=== PATIENT | female | born 1975 ===

== ENCOUNTER 2020-07-20 09:38 | Outpatient (REF) | payer OTHER, SELFPAY ==
[2020-07-20 10:08] LABS: MANUAL DIFF FLAG NO
[2020-07-20 10:15] LABS: Basophils Percent Auto 0.5 % (0-2); Eosinophils Absolute Auto 0.2 X10*3/uL (0.0-0.4); Eosinophils Percent Auto 4.4 % (0-4); Hematocrit 41.5 % (37-47); Hemoglobin 13.5 g/dl (12.0-16.0); Imm Gran Abs Auto 0.01 X10*3/uL (0.00-0.03); Imm Gran Pct Auto 0.2 % (0.0-0.4); Lymphocytes Absolute Auto 1.6 X10*3/uL (1.2-4.9); Lymphocytes Percent Auto 37.1 % (20-40); Mean Corpuscular HGB Conc 32.5 g/dl (31.0-35.0); Mean Corpuscular Hemoglobin 28.8 pg (27.0-33.0); Mean Corpuscular Volume 88.7 fL (80-98); Mean Platelet Volume 9.6 fL (9.4-12.3); Monocytes Absolute Auto 0.5 X10*3/uL (0.1-1.2); Monocytes Percent Auto 12.1 % (2-11); Neutrophils Percent Auto 45.7 % (45-73); Platelet Count 252 X10*3/uL (160-400); Red Blood Count 4.68 X10*6/uL (4.20-5.50); Red Cell Distribution Width 12.2 % (11.0-16.0); White Blood Count 4.3 X10*3/uL (4.8-10.8)
[2020-07-20 11:33] LABS: Alanine Aminotransferase 25 U/L (0-31); Albumin Level 4.3 g/dL (3.5-5.0); Alkaline Phosphatase 46 U/L (39-117); Aspartate Amino Transferase 21 U/L (5-31); Bilirubin Total 0.7 mg/dL (0.0-1.0); Blood Urea Nitrogen 9 mg/dL (9-16); C Reactive Protein 0.02 mg/dL (< or = 0.50); Calcium 9.2 mg/dL (8.4-10.2); Estimated Glomerular Filt Rate > 60; Glucose Random 92 mg/dL (60-115); Total Protein 7.3 g/dL (6.5-8.0)
[2020-07-20 11:43] LABS: Anion Gap 10 (12-20); Carbon Dioxide 28 mmol/L (22-29); Chloride 102 mmol/L (96-108); Potassium 4.2 mmol/l (3.3-5.1); Sodium 136 mmol/L (135-145)
== END 2020-07-20 09:39 | disposition home or self-care (01) ==
LOC: HO.LAB 09:38
PROVIDERS: PCP Internal Medicine; Visit Provider Student in an Organized Health Care Education/Training Program
DX: M05.79 Rheumatoid arthritis with rheumatoid factor of multiple sites without organ or systems involvement (principal)
CPT/HCPCS: 36415; 80053; 85025; 86140

== ENCOUNTER → 2020-07-25 12:22 | Outpatient (BNVA) | payer OTHER, SELFPAY | PROVIDERS: PCP Internal Medicine; Visit Provider Student in an Organized Health Care Education/Training Program | DX: M05.9 Rheumatoid arthritis with rheumatoid factor, unspecified (principal); F41.9 Anxiety disorder, unspecified; Z79.899 Other long term (current) drug therapy | CPT/HCPCS: 99214 ==

== ENCOUNTER 2020-10-05 10:10 | Outpatient (REF) | payer OTHER, SELFPAY | END 2020-10-05 10:11 | disposition home or self-care (01) | LOC: HO.LAB 10:10 | PROVIDERS: Visit Provider Internal Medicine | DX: Z20.828 Contact with and (suspected) exposure to other viral communicable diseases (principal) | CPT/HCPCS: C9803; U0003 ==

== ENCOUNTER 2020-11-28 12:59 | Outpatient (REF) | payer OTHER, SELFPAY ==
[2020-11-28 14:13] LABS: MANUAL DIFF FLAG NO
[2020-11-28 14:31] LABS: Basophils Percent Auto 0.3 % (0-2); Eosinophils Absolute Auto 0.2 X10*3/uL (0.0-0.4); Eosinophils Percent Auto 2.3 % (0-4); Hematocrit 39.9 % (37-47); Hemoglobin 13.3 g/dl (12.0-16.0); Imm Gran Abs Auto 0.03 X10*3/uL (0.00-0.03); Imm Gran Pct Auto 0.4 % (0.0-0.4); Lymphocytes Absolute Auto 2.2 X10*3/uL (1.2-4.9); Lymphocytes Percent Auto 31.4 % (20-40); Mean Corpuscular HGB Conc 33.3 g/dl (31.0-35.0); Mean Corpuscular Volume 87.1 fL (80-98); Mean Platelet Volume 10.2 fL (9.4-12.3); Monocytes Absolute Auto 0.7 X10*3/uL (0.1-1.2); Neutrophils Absolute Auto 3.8 X10*3/uL (2.0-8.3); Neutrophils Percent Auto 55.6 % (45-73); Platelet Count 226 X10*3/uL (160-400); Red Blood Count 4.58 X10*6/uL (4.20-5.50); Red Cell Distribution Width 12.2 % (11.0-16.0); White Blood Count 6.9 X10*3/uL (4.8-10.8)
[2020-11-28 14:42] LABS: Alanine Aminotransferase 15 U/L (0-31); Albumin Level 4.2 g/dL (3.5-5.0); Alkaline Phosphatase 51 U/L (39-117); Anion Gap 12 (12-20); Aspartate Amino Transferase 16 U/L (5-31); Bilirubin Total 0.7 mg/dL (0.0-1.0); Blood Urea Nitrogen 11 mg/dL (9-16); C Reactive Protein < 0.02 mg/dL (< or = 0.50); Calcium 9.3 mg/dL (8.4-10.2); Carbon Dioxide 25 mmol/L (22-29); Chloride 104 mmol/L (96-108); Estimated Glomerular Filt Rate > 60; Glucose Random 109 mg/dL (60-115); Potassium 4.3 mmol/L (3.3-5.1); Sodium 137 mmol/L (135-145); Total Protein 7.3 g/dL (6.5-8.0)
[2020-11-28 15:33] LABS: Erythrocyte Sedimentation Rate 5 MM/HR (0-20)
== END 2020-11-28 13:00 | disposition home or self-care (01) ==
LOC: HO.LAB 12:59
PROVIDERS: PCP Internal Medicine; Referring Provider Internal Medicine; Visit Provider Student in an Organized Health Care Education/Training Program
DX: M05.9 Rheumatoid arthritis with rheumatoid factor, unspecified (principal); F41.9 Anxiety disorder, unspecified; Z88.0 Allergy status to penicillin; Z88.8 Allergy status to other drugs, medicaments and biological substances; Z79.899 Other long term (current) drug therapy
CPT/HCPCS: 36415; 80053; 85025; 85652; 86140; 99212

== ENCOUNTER 2020-12-04 10:56 | Outpatient (REF) | payer OTHER, SELFPAY ==
[2020-12-05 17:36] LABS: C. trachomatis RNA TMA NOT DETECTED (NOT DETECTED); N. gonorrhoeae RNA TMA NOT DETECTED (NOT DETECTED)
[2020-12-07 05:02] LABS: HPV mRNA E6/E7 rflx Not Detected (Not Detected)
== END 2020-12-04 10:57 | disposition home or self-care (01) ==
LOC: HO.LAB 10:56
PROVIDERS: Visit Provider Advanced Practice Midwife
DX: Z01.411 Encounter for gynecological examination (general) (routine) with abnormal findings (principal); Z11.51 Encounter for screening for human papillomavirus (HPV); R10.2 Pelvic and perineal pain; R32 Unspecified urinary incontinence; N87.0 Mild cervical dysplasia; Z20.2 Contact with and (suspected) exposure to infections with a predominantly sexual mode of transmission
CPT/HCPCS: 36415; 87491; 87591; 87624; 88142

== ENCOUNTER 2020-12-04 11:49 | Outpatient (REF) | payer OTHER, SELFPAY ==
[2020-12-05 08:29] LABS: HBc Num1 0.08 S/CO (0.00-0.79); HIV AB/AG Nonreactive (Nonreactive); HIV Num 1 0.05 S/CO (0.00-0.99); Hepatitis B Core Antibody Nonreactive (Nonreactive); ~HepC Num1 0.11 S/CO (0.00-0.79); ~Hepatitis C Antibody Nonreactive (Nonreactive)
[2020-12-05 08:55] LABS: Syphilis Screen Nonreactive (Nonreactive)
== END 2020-12-04 11:50 | disposition home or self-care (01) ==
LOC: HO.LAB 11:49
PROVIDERS: PCP Internal Medicine; Visit Provider Advanced Practice Midwife
DX: Z20.2 Contact with and (suspected) exposure to infections with a predominantly sexual mode of transmission (principal)
CPT/HCPCS: 36415; 86704; 86780; 86803; 87389

== ENCOUNTER 2020-12-13 13:19 | Outpatient (REF) | payer OTHER, SELFPAY ==
--- NOTE | ~2020-12-13 | US_ITS ---
EXAMINATION: US PELVIS, COMPLETE CLINICAL INFORMATION: Pelvic and perineal pain. COMPARISON: 03/05/2020 TECHNIQUE: Transabdominal and transvaginal imaging was performed. FINDINGS: LMP: 12/06/2020 Uterus is anteverted , measuring 11.9 x 4.9 x 7.1 cm. There is a 2.3 x 1.9 x 2.1 cm hypoechoic lesion in the body of the uterus, suggestive of fibroid. Slight interval increase in size. Small cystic focus in the uterine fundus measuring 0.4 x 0.3 x 0.3 cm. Small 0.2 cm calcification in the myometrium. Nabothian cyst present. Endometrial thickness 1.1 cm. Right ovary measures 2.4 x 1.4 x 0.8 cm. Volume 1.4 mL. Left ovary measures 3.4 x 2.4 x 1.7 cm. Volume 7.3 mL. There is a 1.4 x 1.4 x 1.5 cm cyst, an additional 1.3 x 0.8 x 1 cm cyst. No free fluid in the cul-de-sac. US/US transvaginal IMPRESSION: 1. Hypoechoic lesion in the uterine body, probable fibroid, slightly increased in size as compared to previous having a maximal measurement of 2.3 cm. 2. Small cystic and small focus of calcification in the uterine myometrium, otherwise as detailed above. 3. Right ovarian cyst having a maximal measurement of 1.5 cm and 1.3 cm respectively.
--- NOTE | ~2020-12-13 | US_ITS ---
EXAMINATION: US PELVIS, COMPLETE CLINICAL INFORMATION: Pelvic and perineal pain. COMPARISON: 03/05/2020 TECHNIQUE: Transabdominal and transvaginal imaging was performed. FINDINGS: LMP: 12/06/2020 Uterus is anteverted , measuring 11.9 x 4.9 x 7.1 cm. There is a 2.3 x 1.9 x 2.1 cm hypoechoic lesion in the body of the uterus, suggestive of fibroid. Slight interval increase in size. Small cystic focus in the uterine fundus measuring 0.4 x 0.3 x 0.3 cm. Small 0.2 cm calcification in the myometrium. Nabothian cyst present. Endometrial thickness 1.1 cm. Right ovary measures 2.4 x 1.4 x 0.8 cm. Volume 1.4 mL. Left ovary measures 3.4 x 2.4 x 1.7 cm. Volume 7.3 mL. There is a 1.4 x 1.4 x 1.5 cm cyst, an additional 1.3 x 0.8 x 1 cm cyst. No free fluid in the cul-de-sac. US/US pelvic complete IMPRESSION: 1. Hypoechoic lesion in the uterine body, probable fibroid, slightly increased in size as compared to previous having a maximal measurement of 2.3 cm. 2. Small cystic and small focus of calcification in the uterine myometrium, otherwise as detailed above. 3. Right ovarian cyst having a maximal measurement of 1.5 cm and 1.3 cm respectively.
== END 2020-12-13 13:20 | disposition home or self-care (01) ==
LOC: HO.US 13:19
PROVIDERS: PCP Internal Medicine; Visit Provider Advanced Practice Midwife
DX: R10.2 Pelvic and perineal pain (principal)
CPT/HCPCS: 76830; 76856

== ENCOUNTER → 2020-12-27 11:21 | Outpatient (BNVA) | payer OTHER, SELFPAY | PROVIDERS: PCP Internal Medicine; Visit Provider Advanced Practice Midwife ==

== ENCOUNTER → 2020-12-28 13:28 | Outpatient (BNVA) | payer OTHER, SELFPAY | PROVIDERS: PCP Internal Medicine; Visit Provider Advanced Practice Midwife ==

== ENCOUNTER 2021-01-01 08:37 | Outpatient (REF) | payer OTHER, SELFPAY | END 2021-01-01 08:38 | disposition home or self-care (01) | LOC: HO.LAB 08:37 | PROVIDERS: PCP Internal Medicine; Visit Provider Obstetrics & Gynecology | DX: N87.0 Mild cervical dysplasia (principal) | CPT/HCPCS: 57454; 88305 ==

== ENCOUNTER → 2021-01-18 10:58 | Outpatient (BNVA) | payer OTHER, SELFPAY | PROVIDERS: PCP Internal Medicine; Visit Provider Urology | DX: N39.3 Stress incontinence (female) (male) (principal) | CPT/HCPCS: 51798; 81002; 99202 ==

== ENCOUNTER 2021-01-30 08:57 | Outpatient (REF) | payer OTHER, SELFPAY ==
[2021-01-30 09:36] LABS: COVID-19 Test Negative (Negative); IDNOW Serial# 55D5AD1C
== END 2021-01-30 08:58 | disposition home or self-care (01) ==
LOC: HO.LAB 08:57
PROVIDERS: Visit Provider Internal Medicine
DX: Z20.822 Contact with and (suspected) exposure to COVID-19 (principal)
CPT/HCPCS: 36415; 87635; C9803

== ENCOUNTER 2021-02-06 10:09 | Outpatient (REF) | payer OTHER, SELFPAY ==
[2021-02-06 10:48] LABS: MANUAL DIFF FLAG NO
[2021-02-06 10:52] LABS: Basophils Percent Auto 0.4 % (0-2); Eosinophils Absolute Auto 0.2 X10*3/uL (0.0-0.4); Eosinophils Percent Auto 2.7 % (0-4); Hemoglobin 12.6 g/dl (12.0-16.0); Imm Gran Abs Auto 0.01 X10*3/uL (0.00-0.03); Imm Gran Pct Auto 0.2 % (0.0-0.4); Lymphocytes Absolute Auto 1.7 X10*3/uL (1.2-4.9); Lymphocytes Percent Auto 30.5 % (20-40); Mean Corpuscular HGB Conc 32.3 g/dl (31.0-35.0); Mean Corpuscular Hemoglobin 28.5 pg (27.0-33.0); Mean Corpuscular Volume 88.2 fL (80-98); Mean Platelet Volume 9.6 fL (9.4-12.3); Monocytes Absolute Auto 0.6 X10*3/uL (0.1-1.2); Neutrophils Absolute Auto 3.1 X10*3/uL (2.0-8.3); Neutrophils Percent Auto 56.2 % (45-73); Platelet Count 241 X10*3/uL (160-400); Red Blood Count 4.42 X10*6/uL (4.20-5.50); Red Cell Distribution Width 12.2 % (11.0-16.0); White Blood Count 5.5 X10*3/uL (4.8-10.8)
[2021-02-06 11:22] LABS: Alanine Aminotransferase 16 U/L (0-31); Alkaline Phosphatase 47 U/L (39-117); Anion Gap 11 (12-20); Aspartate Amino Transferase 15 U/L (5-31); Bilirubin Total 0.8 mg/dL (0.0-1.0); Blood Urea Nitrogen 8 mg/dL (9-16); C Reactive Protein 0.06 mg/dL (< or = 0.50); Calcium 8.6 mg/dL (8.4-10.2); Carbon Dioxide 26 mmol/L (22-29); Chloride 106 mmol/L (96-108); Estimated Glomerular Filt Rate > 60; Glucose Random 96 mg/dL (60-115); Sodium 139 mmol/L (135-145); Total Protein 6.7 g/dL (6.5-8.0)
== END 2021-02-06 10:10 | disposition home or self-care (01) ==
LOC: HO.LAB 10:09
PROVIDERS: PCP Internal Medicine; Visit Provider Student in an Organized Health Care Education/Training Program
DX: M05.9 Rheumatoid arthritis with rheumatoid factor, unspecified (principal)
CPT/HCPCS: 36415; 80053; 85025; 86140

== ENCOUNTER 2021-02-11 09:56 | Outpatient (REF) | payer OTHER, SELFPAY ==
--- NOTE | ~2021-02-11 | MM_ITS ---
EXAMINATION: MM SCREENING DIGITAL BREAST TOMOSYNTHESIS, BILATERAL CLINICAL INFORMATION: Screening. Asymptomatic. The lifetime risk of breast cancer based on the Tyrer-Cuzick Model is 11%. COMPARISON: Mammography: 07/12/2018, 09/18/2015 TECHNIQUE: Digital breast tomosynthesis is performed in both the craniocaudal and mediolateral oblique views along with computer-aided detection (CAD). Synthesized 2D images are generated from the tomosynthesis. FINDINGS: There are scattered areas of fibroglandular density (ACR BI-RADS breast composition Category b). Breast tissue composition borders on heterogeneously dense in the upper outer quadrants. Parenchymal pattern is similar to prior studies. There is no interval mass or architectural abnormality. There are bilateral punctate and predominantly vascular calcifications again seen. The axilla and skin contours are unremarkable. No significant changes. MM/MM tomosynthesis screening BI IMPRESSION: No mammographic evidence of malignancy. ASSESSMENT: BI-RADS 2: Benign RECOMMENDATION: Routine annual mammography screening. This patient's information was entered into a reminder system with a target due date for their next mammogram.
== END 2021-02-11 09:57 | disposition home or self-care (01) ==
LOC: HO.MAMMO 09:56
PROVIDERS: PCP Internal Medicine; Visit Provider Advanced Practice Midwife
DX: Z12.31 Encounter for screening mammogram for malignant neoplasm of breast (principal)
CPT/HCPCS: 77063; 77067

== ENCOUNTER → 2021-02-20 13:26 | Outpatient (BNVA) | payer OTHER, SELFPAY | PROVIDERS: PCP Internal Medicine; Visit Provider Student in an Organized Health Care Education/Training Program | DX: M05.9 Rheumatoid arthritis with rheumatoid factor, unspecified (principal); M70.62 Trochanteric bursitis, left hip | CPT/HCPCS: 20610; 99212 ==

== ENCOUNTER 2021-05-03 17:01 | Emergency (ER) | payer OTHER, SELFPAY ==
[2021-05-03 17:50] VITALS: BP 119/80; PULSE 66; RESP 20; TEMP 37.1; O2SAT 99; BMI 25.3
[2021-05-03 19:32] LABS: MANUAL DIFF FLAG NO
[2021-05-03 19:33] LABS: Basophils Percent Auto 0.2 % (0-2); Eosinophils Absolute Auto 0.2 X10*3/uL (0.0-0.4); Eosinophils Percent Auto 3.6 % (0-4); Hematocrit 39.4 % (37-47); Hemoglobin 12.9 g/dl (12.0-16.0); Imm Gran Abs Auto 0.01 X10*3/uL (0.00-0.03); Imm Gran Pct Auto 0.2 % (0.0-0.4); Lymphocytes Absolute Auto 1.9 X10*3/uL (1.2-4.9); Mean Corpuscular HGB Conc 32.7 g/dl (31.0-35.0); Mean Corpuscular Hemoglobin 28.5 pg (27.0-33.0); Mean Corpuscular Volume 87.2 fL (80-98); Mean Platelet Volume 9.9 fL (9.4-12.3); Monocytes Absolute Auto 0.7 X10*3/uL (0.1-1.2); Neutrophils Absolute Auto 2.3 X10*3/uL (2.0-8.3); Platelet Count 249 X10*3/uL (160-400); Red Blood Count 4.52 X10*6/uL (4.20-5.50)
[2021-05-03] MEDS: 0.9 % Sodium Chloride 1,000 ML 999 ML IVCONT (19:49)
[2021-05-03] MEDS: Metoclopramide HCl 10 MG/2 ML VIAL IVPUSH (19:50)
[2021-05-03] MEDS: diphenhydrAMINE HCL 50 MG/ML VIAL IVPUSH (19:50)
[2021-05-03] MEDS: dexAMETHasone sod phosphate 10 MG/ML VIAL IVPUSH (19:50)
[2021-05-03 19:55] LABS: Anion Gap 10 (12-20); Blood Urea Nitrogen 8 mg/dL (9-16); Calcium 8.8 mg/dL (8.4-10.2); Carbon Dioxide 27 mmol/L (22-29); Chloride 106 mmol/L (96-108); Creatinine Clr Calc Pharmacy 90.4; Estimated Glomerular Filt Rate > 60; Glucose Random 95 mg/dL (60-115); Magnesium 2.2 mg/dL (1.6-2.6); Potassium 3.4 mmol/L (3.3-5.1); Sodium 140 mmol/L (135-145)
--- NOTE | 2021-05-03 20:01 | ED_ITS ---
HPI - Headache General Chief Complaint: Headache Stated Complaint: headache Time Seen by Provider: 05/03/21 18:54 Source: patient Mode of arrival: ambulatory Limitations: no limitations History of Present Illness HPI Narrative: 46-year-old female with a past medical history of migraine headaches, rheumatoid arthritis, stress incontinence, urinary incontinence and anxiety presenting to the ED with complaints of her migraine headache for the past 4 days despite taking Motrin Tylenol. She reports that this is similar to her prior migraine headaches she has associated nausea and photophobia. She reports she normally takes Imitrex which provide symptomatic relief although she ran out of her prescription. She denies any recent trauma or tick bites or any CO2 exposure or toxicity or any other symptoms complaints or concerns at this time. MD elicited complaint: headache and migraine Onset (ago): day(s) (Four days) Onset description: gradually Location: frontal, occipital, diffuse and retro-orbital Severity: severe Pain scale (0-10): 10 Quality & Timing: aching, throbbing, pulsatile, constant, progressively worsening and similar to previous headaches Exacerbating factors: light Relieving factors: prescription medication and dark room Associated symptoms: nausea and photophobia Treatments prior to arrival: acetaminophen and ibuprofen Related Data Home Medications Medication Instructions Recorded Confirmed lidocaine HCl 4 % topical cream 1 applic TOPICAL TID 07/25/20 naproxen 500 mg tablet,delayed 500 mg PO BID PRN 07/25/20 release tizanidine 2 mg tablet 2 mg PO TID PRN 07/25/20 Previous Rx's Medication Instructions Recorded diclofenac sodium 1 % topical gel 2 g TOPICAL QID #100 g 11/28/20 buspirone 7.5 mg tablet 7.5 mg PO BID #60 tab 01/07/21 sertraline 25 mg tablet 25 mg PO DAILY 90 Days #90 tab 02/04/21 sarilumab 200 mg/1.14 mL 200 mg SUBCUT Q2W #2.28 ml 02/20/21 subcutaneous pen injector tramadol 50 mg tablet 50 mg PO Q6H PRN #30 tab 02/28/21 loratadine 10 mg tablet 10 mg PO DAILY PRN 90 Days #90 tab 03/05/21 albuterol sulfate 90 mcg/actuation 2 puff INHALATION Q4-6H #6.7 g 03/21/21 aerosol inhaler ondansetron HCl [Zofran] 4 mg PO Q8H PRN #14 tab 05/03/21 sumatriptan succinate [Imitrex] See Rx Instructions .ROUTE 05/03/21 .COMPLEX #30 tab Allergies Allergy/AdvReac Type Severity Reaction Status Date / Time Penicillins [PENICILLINS] Allergy Intermediate RASH Verified 05/03/21 17:50 adalimumab [Humira] Allergy Unknown rash Verified 05/03/21 17:50 methotrexate Allergy Unknown HIVES Verified 02/20/21 13:30 Review of Systems Review of Systems: Constitutional : No changes in activity, No lethargy, No recent prior head injury, No agitation, No increased fussiness ENT/Mouth : No Ear Pain, No Nasal discharge/drainage Eyes: No Eye Pain, No Swelling, No Redness, No Foreign Body, No Vision Changes Cardiovascular : No Chest Pain, No SOB Respiratory : No Cough Gastrointestinal : No Nausea, No Vomiting, No abdominal Pain Genitourinary : No Dysuria, No Urinary Frequency, No Urinary Incontinence, No Urgency, No Flank Pain Musculoskeletal : No joint pain, No neck stiffness, No back pain/injury Skin : No lacerations Neuro : No unsteady gait, No Paresthesias, No Loss of Consciousness, No altered mental status, No dizziness, + Headache Denies past medical history of HIV, recent trauma, coagulopathy, recent spinal/ epidural procedure, new medication, URI symptoms, close contacts with similar symptoms, tick bite, or known CO2 exposure. Yes all other systems are reviewed and are negative [facility] Past Medical History Attestation statement: The following information was validated with the patient. Medical History Rheumatoid arthritis Surgical History H/O lithotripsy H/O tubal ligation History of back surgery Family History Family History Paternal Aunt Breast cancer Father Asthma Diabetes Mother Lupus Sister Lupus Epilepsy Social History Social History Household Members: None Housing: Apartment Are you a primary manager respiratory care to a significant other at home: No Do you presently have visiting nurse or other home services: No Alcohol intake: never Advance Directives: No Advance Directives Information Provided: No Patient : No Physical Exam Vital Signs: Vital Signs: Last Vital Signs Temp 98.7 F 05/03/21 17:50 Pulse 66 05/03/21 17:50 Resp 20 05/03/21 17:50 BP 119/80 05/03/21 17:50 Pulse Ox 99 05/03/21 17:50 Body Mass Index 25.3 Vital signs have been reviewed as normal and appeared to be correct. Blood pressure normal. Heart rate normal. Respiration rate normal. Temperature normal. Oxygen saturation normal. Appearance: Alert. Oriented X3. No acute distress. Head: Normal external exam. Normocephalic. Atraumatic. Able to rotate head bilaterally. Eyes: PERRLA. EOMI. No nystagmus noted. Conjunctiva and sclera normal. Eyelids normal. Corneal reflex normal. ENT: EAC normal. TM's Normal. Hearing normal. Pharynx normal. Uvula midline. tongue midline. Moist mucous membranes. No trismus noted. No drooling noted. No muffled voice noted. Neck: Normal inspection. Neck supple. FROM. No adenopathy. Thyroid Normal. No meningeal signs. No neck mass noted. CVS: Normal heart rate and rhythm. Heart sound normal. No murmurs noted. Pulses normal throughout. Respiratory: No respiratory distress. Painless inspiration. Breath sounds normal. No wheezes/rales/rhonchi noted. Chest nontender. No accessory muscle usage noted or decreased air movement noted. Back: Full range of motion noted. Skin: Skin warm and dry. Normal skin color. Normal skin turgor. No ra shes/lesions/lacerations noted. Extremities: Extremities exhibit normal range of motion. Extremities nontender. Able to shrug shoulders bilaterally and keep up against resistance. Neuro: Oriented X 3. No motor deficit. No sensory deficit. Reflexes normal. Moving all extremities. No focal motor deficits. Cranial nerves II-XI intact bilaterally. Facial strength normal. Normal cognition. Speech normal. Gait normal. Strength 5/5 throughout. No pronator drift. No tremor noted. No fasciculations noted. Muscle tone normal throughout. No asterixis noted. [id number] test normal. Heel to cid test normal. Tandem gait normal. Does not sway with eyes open. Romberg test negative. Rapid alternating movement upper extremity normal. Rapid alternating movement lower extremity normal. Hand drop from overhead-Mrs. face. No rigidity noted. NIHSS score 0. Course Course Course Narrative: - Patient afebrile, resting comfortably in no distress. Non- toxic appearing. Patient denies any recent trauma/injury to head. Neurological exam shows no deficits. BP WNL. Denies any changes in vision. Patient ambulates without difficulty. Given the history, and physical - most likely diagnosis: Migraine TROY. Although due to patient reporting that this is longer than her usual headaches will obtain CT scan of brain to evaluate for any acute processes. Will treat pain, and nausea. Will d/c with migraine medicaiton and advised to follow - up with PCP. Patient demonstrated good understanding of si gns and symptoms to return to ED for further testing should sx worsen. gradual onset TROY with photo/phonophobia, nausea. Pt states classic of previous migraine HAs. SAH: unlikely given gradual onset and similar to previous episodes Intracranial bleed: unlikely given neg trauma, neg anticoagulation Meningitis: unlikely given pt afebrile, neg stiff neck, no immune compromise. Exam without signs of meningismus Temporal arteritis: Unlikely given Neg jaw claudication, no temporal tenderness or nodularity on exam. Cerebral venous thrombosis: unlikely given no h/o hypercoaguable state, no chronic head/neck infection. MDM - Headache Medical Records Attestation: I reviewed the patient's medical records. Lab Data Attestation: I reviewed the patient's lab results. Result diagrams: 05/03/21 19:24 05/03/21 19:24 Labs: Lab Results 05/03/21 05/03/21 Range/Units 19:24 19:24 WBC 5.0 (4.8-10.8) X10*3/uL RBC 4.52 (4.20-5.50) X10*6/uL Hgb 12.9 (12.0-16.0) g/dl Hct 39.4 (37-47) % MCV 87.2 (80-98) fL MCH 28.5 (27.0-33.0) pg MCHC 32.7 (31.0-35.0) g/dl RDW 13.0 (11.0-16.0) % Plt Count 249 (160-400) X10*3/uL MPV 9.9 (9.4-12.3) fL Immature Gran % (Auto) 0.2 (0.0-0.4) % Neut % (Auto) 46.0 (45-73) % Lymph % (Auto) 37.0 (20-40) % [place] % (Auto) 13.0 H (2-11) % Eos % (Auto) 3.6 (0-4) % Baso % (Auto) 0.2 (0-2) % Lymph # (Auto) 1.9 (1.2-4.9) X10*3/uL [place] # (Auto) 0.7 (0.1-1.2) X10*3/uL Eos # (Auto) 0.2 (0.0-0.4) X10*3/uL Baso # (Auto) 0.0 (0.0-0.2) X10*3/uL Abs Immat Gran (auto) 0.01 (0.00-0.03) X10*3/uL Absolute Neuts (auto) 2.3 (2.0-8.3) X10*3/uL Absolute Nucleated RBC 0.000 (0.0-0.012) X10*3/uL Nucleated RBC % (auto) 0.0 (0.0-0.2) /100WBC Sodium 140 (135-145) mmol/L Potassium 3.4 (3.3-5.1) mmol/L Chloride 106 (96-108) mmol/L Carbon Dioxide 27 (22-29) mmol/L Anion Gap 10 L (12-20) BUN 8 L (9-16) mg/dL Creatinine 0.77 (0.5-1.4) mg/dL Estim Creat Clear Calc 90.4 Estimated GFR > 60 Random Glucose 95 (60-115) mg/dL Calcium 8.8 (8.4-10.2) mg/dL Magnesium 2.2 (1.6-2.6) mg/dL Discharge Plan Discharge Clinical Impression: Migraine Patient Disposition: Home, Self-Care Instructions: Migraine Headache (ED) Prescriptions: New ondansetron HCl [Zofran] 4 mg tablet 4 mg PO Q8H PRN (Reason: nausea and vomiting) Qty: 14 RF: 0 sumatriptan succinate [Imitrex] 25 mg tablet See Rx Instructions .ROUTE .COMPLEX Qty: 30 RF: 2 No Action buspirone 7.5 mg tablet 7.5 mg PO BID Qty: 60 RF: 6 sertraline 25 mg tablet 25 mg PO DAILY 90 Days Qty: 90 RF: 2 Kevzara 200 mg/1.14 mL pen injector 200 mg subcut Q2W Qty: 2.28 RF: 3 tramadol 50 mg tablet 50 mg PO Q6H PRN (Reason: pain) Qty: 30 RF: 0 loratadine [Allergy Relief (loratadine)] 10 mg tablet 10 mg PO DAILY PRN (Reason: allergy symptoms) 90 Days Qty: 90 RF: 1 albuterol sulfate 90 mcg/actuation HFA aerosol inhaler 2 puff inhalation Q4-6H Qty: 6.7 RF: 1 lidocaine HCl [Aspercreme (lidocaine HCl)] 4 % cream 1 applic topical TID RF: 0 tizanidine 2 mg tablet 2 mg PO TID PRNRF: 0 naproxen [EC-Naprosyn] 500 mg tablet,delayed release (DR/EC) 500 mg PO BID PRNRF: 0 diclofenac sodium [Voltaren] 1 % gel 2 g topical QID Qty: 100 RF: 2 Referrals: Bella Armstrong MD [Primary Care Provider] - 2 days Print Language: Persian
[2021-05-03] MEDS: Ketorolac Tromethamine 15 MG/ML VIAL 30 MG IVPUSH (20:30)
[2021-05-03 20:33] VITALS: BP 129/72; PULSE 64; RESP 18; O2SAT 100
== END 2021-05-03 20:52 | disposition home or self-care (01) ==
PROVIDERS: Physician Assistant Medical; Emergency Provider Internal Medicine; PCP Internal Medicine
DX: G43.009 Migraine without aura, not intractable, without status migrainosus (principal); M06.9 Rheumatoid arthritis, unspecified; Z79.899 Other long term (current) drug therapy
CPT/HCPCS: 36415; 80048; 83735; 85025; 96361; 96374; 96375; 96376; 99284; J1100; J1200; J1885; J2765

== ENCOUNTER 2021-05-23 13:31 | Outpatient (REF) | payer OTHER, SELFPAY ==
[2021-05-23 14:55] LABS: MANUAL DIFF FLAG NO
[2021-05-23 15:00] LABS: Basophils Percent Auto 0.2 % (0-2); Eosinophils Absolute Auto 0.3 X10*3/uL (0.0-0.4); Eosinophils Percent Auto 5.6 % (0-4); Hematocrit 39.1 % (37-47); Hemoglobin 12.9 g/dl (12.0-16.0); Imm Gran Abs Auto 0.02 X10*3/uL (0.00-0.03); Imm Gran Pct Auto 0.4 % (0.0-0.4); Lymphocytes Absolute Auto 1.6 X10*3/uL (1.2-4.9); Lymphocytes Percent Auto 28.8 % (20-40); Mean Corpuscular Hemoglobin 28.6 pg (27.0-33.0); Mean Corpuscular Volume 86.7 fL (80-98); Mean Platelet Volume 9.9 fL (9.4-12.3); Monocytes Absolute Auto 0.6 X10*3/uL (0.1-1.2); Monocytes Percent Auto 10.7 % (2-11); Neutrophils Percent Auto 54.3 % (45-73); Platelet Count 293 X10*3/uL (160-400); Red Blood Count 4.51 X10*6/uL (4.20-5.50); Red Cell Distribution Width 13.2 % (11.0-16.0); White Blood Count 5.5 X10*3/uL (4.8-10.8)
[2021-05-23 15:20] LABS: Alanine Aminotransferase 13 U/L (0-31); Albumin Level 4.1 g/dL (3.5-5.0); Alkaline Phosphatase 53 U/L (39-117); Anion Gap 11 (12-20); Aspartate Amino Transferase 15 U/L (5-31); Bilirubin Total 0.5 mg/dL (0.0-1.0); Blood Urea Nitrogen 10 mg/dL (9-16); C Reactive Protein 0.03 mg/dL (< or = 0.50); Calcium 9.6 mg/dL (8.4-10.2); Carbon Dioxide 26 mmol/L (22-29); Chloride 104 mmol/L (96-108); Estimated Glomerular Filt Rate > 60; Glucose Random 93 mg/dL (60-115); Potassium 4.1 mmol/L (3.3-5.1); Sodium 137 mmol/L (135-145); Total Protein 7.3 g/dL (6.5-8.0)
[2021-05-23 15:50] LABS: Erythrocyte Sedimentation Rate 12 MM/HR (0-20)
== END 2021-05-23 13:32 | disposition home or self-care (01) ==
LOC: HO.LAB 13:31
PROVIDERS: Absent Provider Student in an Organized Health Care Education/Training Program; PCP Internal Medicine; Visit Provider Nurse Practitioner Family
DX: M05.9 Rheumatoid arthritis with rheumatoid factor, unspecified (principal); Z79.899 Other long term (current) drug therapy
CPT/HCPCS: 36415; 80053; 85025; 85652; 86140; 99212

== ENCOUNTER 2021-07-12 09:44 | Emergency (ER) | payer OTHER, SELFPAY ==
--- NOTE | ~2021-07-12 | CT_ITS ---
EXAMINATION: CT ABDOMEN AND PELVIS WITHOUT CONTRAST CLINICAL INFORMATION: Flank pain. Question kidney stone. COMPARISON: Previous pelvic ultrasound most recent November 2020, abdominal ultrasound December 2019 CT of the abdomen and pelvis November 2019 TECHNIQUE: Multidetector volumetric imaging was performed from the superior aspect of the liver through the pubic symphysis. Sagittal and coronal reformatted images were obtained on the technologist's workstation. This CT examination was performed using dose optimization techniques as appropriate, variously including the following: *Automated exposure control *Adjustment of mA and/or kV according to patient size (this includes techniques or standardized protocols for targeted exams where dose is matched to indication/reason for exam; i.e. extremities or head) *Use of iterative reconstruction technique DLP: 609 mGy-cm FINDINGS: LUNG BASES: The visualized lung bases are unremarkable. LIVER, GALLBLADDER, AND BILIARY TREE: The liver is normal in size, shape, and attenuation. No focal hepatic lesion or biliary ductal dilatation is present. The gallbladder is unremarkable with no evidence of radiopaque gallstones, gallbladder wall thickening, or obvious pericholecystic inflammatory changes. PANCREAS: Unremarkable. SPLEEN: Unremarkable. ADRENAL GLANDS: Unremarkable. KIDNEYS AND URETERS: The kidneys are normal in size, shape, and attenuation. No hydronephrosis, hydroureter, or calculi seen. No perinephric stranding. BLADDER: Not optimally distended. GASTROINTESTINAL TRACT: The small and large bowel are unremarkable. The appendix is unremarkable. ABDOMINAL WALL: No significant hernia is appreciated. LYMPH NODES: Normal. VASCULAR: Unremarkable. PELVIC VISCERA: Unremarkable. OSSEOUS STRUCTURES: There is degenerative disc disease at L5-S1. CT/CT abdomen pelvis wo con IMPRESSION: No renal stone or hydronephrosis seen.
[2021-07-12 09:46] VITALS: BP 125/73; PULSE 73; RESP 16; TEMP 35.7; O2SAT 94; BMI 25.4
[2021-07-12] MEDS: 0.9 % Sodium Chloride 1,000 ML 999 ML IV (10:17)
[2021-07-12 10:19] LABS: UPreg QC Valid YES; Urine Pregnancy NEGATIVE (NEGATIVE)
[2021-07-12 10:20] LABS: Appearance Urine CLEAR; Color Urine STRAW; Glucose Urine UA NEG (NEG); Leukocyte Esterase Urine 1+ (NEG); Nitrite Urine NEG (NEG); UACC Culture Trigger YES; Urine Blood 2+ (NEG); Urine Ketones NEG (NEG); Urine Protein NEG (NEG-TRACE)
[2021-07-12 10:21] LABS: MANUAL DIFF FLAG NO
[2021-07-12 10:23] LABS: Bacteria Urine 2+ /LPF; Squamous Epithelial Cell Urine 2+ /LPF; UACC CULT YES
[2021-07-12 10:24] LABS: Basophils Percent Auto 0.2 % (0-2); Eosinophils Absolute Auto 0.2 X10*3/uL (0.0-0.4); Hematocrit 38.3 % (37-47); Hemoglobin 12.9 g/dl (12.0-16.0); Imm Gran Abs Auto 0.02 X10*3/uL (0.00-0.03); Imm Gran Pct Auto 0.4 % (0.0-0.4); Lymphocytes Absolute Auto 1.5 X10*3/uL (1.2-4.9); Lymphocytes Percent Auto 30.3 % (20-40); Mean Corpuscular HGB Conc 33.7 g/dl (31.0-35.0); Mean Corpuscular Hemoglobin 29.2 pg (27.0-33.0); Mean Corpuscular Volume 86.7 fL (80-98); Mean Platelet Volume 9.6 fL (9.4-12.3); Monocytes Absolute Auto 0.6 X10*3/uL (0.1-1.2); Neutrophils Absolute Auto 2.8 X10*3/uL (2.0-8.3); Neutrophils Percent Auto 55.1 % (45-73); Platelet Count 187 X10*3/uL (160-400); Red Blood Count 4.42 X10*6/uL (4.20-5.50); Red Cell Distribution Width 12.8 % (11.0-16.0)
[2021-07-12 10:48] LABS: Alanine Aminotransferase 8 U/L (0-31); Alkaline Phosphatase 42 U/L (39-117); Anion Gap 12 (12-20); Aspartate Amino Transferase 13 U/L (5-31); Bilirubin Total 0.7 mg/dL (0.0-1.0); Blood Urea Nitrogen 7 mg/dL (9-16); Calcium 8.8 mg/dL (8.4-10.2); Carbon Dioxide 21 mmol/L (22-29); Chloride 106 mmol/L (96-108); Creatinine Clr Calc Pharmacy 96.9; Estimated Glomerular Filt Rate > 60; Glucose Random 117 mg/dL (60-115); Potassium 3.4 mmol/L (3.3-5.1); Sodium 136 mmol/L (135-145); Total Protein 6.9 g/dL (6.5-8.0)
--- NOTE | 2021-07-12 11:22 | ED.ABDPAIN ---
HPI - Abdominal Pain General Chief Complaint: Abdominal Pain Stated Complaint: BACK PAIN Time Seen by Provider: 07/12/21 10:13 Source: patient Mode of arrival: ambulatory Limitations: no limitations History of Present Illness HPI narrative: Patient presents to ED for right flank pain and right lower quadrant pain for the past 3 days. Patient also states dysuria. Patient denies any nausea, vomiting, fever, chills, vaginal bleeding, or vaginal discharge. Patient denies any recent trauma. Related Data Home Medications Medication Instructions Recorded Confirmed lidocaine HCl 4 % topical cream 1 applic TOPICAL TID 07/25/20 05/23/21 (Aspercreme (lidocaine HCl)) naproxen 500 mg tablet,delayed 500 mg PO BID PRN 07/25/20 05/23/21 release (EC-Naprosyn) tizanidine 2 mg tablet 2 mg PO TID PRN 07/25/20 05/23/21 Previous Rx's Medication Instructions Recorded diclofenac sodium 1 % topical gel 2 g TOPICAL QID #100 g 11/28/20 (Voltaren) buspirone 7.5 mg tablet 7.5 mg PO BID #60 tab 01/07/21 sertraline 25 mg tablet 25 mg PO DAILY 90 Days #90 tab 02/04/21 sarilumab 200 mg/1.14 mL 200 mg SUBCUT Q2W #2.28 ml 02/20/21 subcutaneous pen injector (Kevzara) tramadol 50 mg tablet 50 mg PO Q6H PRN #30 tab 02/28/21 loratadine 10 mg tablet (Allergy 10 mg PO DAILY PRN 90 Days #90 tab 03/05/21 Relief (loratadine)) albuterol sulfate 90 mcg/actuation 2 puff INHALATION Q4-6H #6.7 g 03/21/21 aerosol inhaler ondansetron HCl 4 mg tablet 4 mg PO Q8H PRN #14 tab 05/03/21 (Zofran) sumatriptan succinate 25 mg tablet See Rx Instructions .ROUTE 05/03/21 (Imitrex) .COMPLEX #30 tab cefuroxime axetil 250 mg tablet 250 mg PO Q12H 7 Days #14 tab 07/12/21 naproxen 500 mg tablet 500 mg PO BID PRN #20 tab 07/12/21 Allergies Allergy/AdvReac Type Severity Reaction Status Date / Time Penicillins [PENICILLINS] Allergy Intermediate RASH Verified 05/23/21 14:25 adalimumab [Humira] Allergy Unknown rash Verified 05/23/21 14:25 methotrexate Allergy Unknown HIVES Verified 05/23/21 14:25 Review of Systems Review of Systems Yes all other systems are reviewed and are negative Constitutional: Reports as per HPI and Reports no additional constitutional complaints Eyes: Reports as per HPI and Reports no additional eye complaints Reports system reviewed and no additional complaints, except as documented and Reports as per HPI Cardiovascular: Reports as per HPI and Reports no additional cardiovascular complaints Respiratory: Reports as per HPI and Reports no additional respiratory complaints Gastrointestinal: Reports as per HPI, Reports no additional gastrointestinal complaints and Reports abdominal pain Genitourinary: Reports no additional female genitourinary complaints, Reports as per HPI and Reports dysuria Musculoskeletal: Reports no additional musculoskeletal complaints and Reports as per HPI Comments: Right flank pain Reports system reviewed and no additional complaints, except as documented and Reports as per HPI Psychiatric: Reports no additional psychiatric complaints and Reports as per HPI Physical Exam Vital Signs: Vital Signs: Last Vital Signs Temp 98.0 F 07/12/21 13:12 Pulse 53 07/12/21 13:12 Resp 15 07/12/21 13:12 BP 116/69 07/12/21 13:12 Pulse Ox 99 07/12/21 13:12 Body Mass Index 25.4 Const: General: cooperative, healthy appearing, comfortable, no acute distress, well developed, alert and awake Orientation/consciousness: patient oriented x3 HENMT: Head: Yes normal to inspection, Yes No palpable skull fracture present, Yes normocephalic, Yes atraumatic and No abrasion Eyes: General: appearance normal, both eyes and all related structures Neck: Neck: Yes normal visual inspection, Yes full ROM, Yes no lymphadenopathy, Yes no meningeal signs, Yes trachea midline, Yes supple and No tender Chest: Chest palpation & inspection: normal inspection of the chest and normal palpation of entire chest wall Resp: Effort & Inspection: normal respiratory effort and able to speak in complete sentences Auscultation: clear to auscultation bilaterally Cardio: Jugular venous distension: no JVD Heart sounds: S1 normal heart sound present and S2 normal heart sound present GI: Inspection: Yes normal to inspection Palpation (GI): Soft to palpation, not firm, Tenderness to palpation present (GI) in the RLQ, no guarding and not rigid : General: Yes CVA tenderness (right) Back/Spine/Pelvis: Back: CVA tenderness (right) and No back tenderness Skin: General skin exam: no rashes or lesions noted and elasticity normal Neuro: General: patient oriented x3, no meningeal signs and CN's II-XI intact bilaterally Cranial nerves: Yes CN's II-XII intact bilaterally Extrem: General: Yes normal to inspection and Yes full ROM Psych: Appearance: grossly normal, well kempt and not disheveled Course Course Course Narrative: Patient will have labs and urine sent. Toradol given for pain. Likely CT scan. Reevaluation(s) Reevaluation #1: Patient labs came back normal. Negative for elevated white blood cell count or a KI. CT scan came back negative for kidney stones. UA positive for UTI. Patient will be discharged with antibiotics and pain meds. Time: 14:17 [facility] - Abdominal Pain Lab Data Result diagrams: 07/12/21 10:18 07/12/21 10:18 Labs: Lab Results 07/12/21 07/12/21 07/12/21 Range/Units 10:01 10:01 10:18 WBC 5.0 (4.8-10.8) X10*3/uL RBC 4.42 (4.20-5.50) X10*6/uL Hgb 12.9 (12.0-16.0) g/dl Hct 38.3 (37-47) % MCV 86.7 (80-98) fL MCH 29.2 (27.0-33.0) pg MCHC 33.7 (31.0-35.0) g/dl RDW 12.8 (11.0-16.0) % Plt Count 187 D (160-400) X10*3/uL MPV 9.6 (9.4-12.3) fL Immature Gran % (Auto) 0.4 (0.0-0.4) % Neut % (Auto) 55.1 (45-73) % Lymph % (Auto) 30.3 (20-40) % [place] % (Auto) 11.0 (2-11) % Eos % (Auto) 3.0 (0-4) % Baso % (Auto) 0.2 (0-2) % Lymph # (Auto) 1.5 (1.2-4.9) X10*3/uL [place] # (Auto) 0.6 (0.1-1.2) X10*3/uL Eos # (Auto) 0.2 (0.0-0.4) X10*3/uL Baso # (Auto) 0.0 (0.0-0.2) X10*3/uL Abs Immat Gran (auto) 0.02 (0.00-0.03) X10*3/uL Absolute Neuts (auto) 2.8 (2.0-8.3) X10*3/uL Absolute Nucleated RBC 0.000 (0.0-0.012) X10*3/uL Nucleated RBC % (auto) 0.0 (0.0-0.2) /100WBC Sodium (135-145) mmol/L Potassium (3.3-5.1) mmol/L Chloride (96-108) mmol/L Carbon Dioxide (22-29) mmol/L Anion Gap (12-20) BUN (9-16) mg/dL Creatinine (0.5-1.4) mg/dL Estim Creat Clear Calc Estimated GFR Random Glucose (60-115) mg/dL Calcium (8.4-10.2) mg/dL Total Bilirubin (0.0-1.0) mg/dL AST (5-31) U/L ALT (0-31) U/L Alkaline Phosphatase (39-117) U/L Total Protein (6.5-8.0) g/dL Albumin (3.5-5.0) g/dL Urine Color STRAW Urine Appearance CLEAR Urine pH 6.0 (5.0-8.0) Ur Specific [place] 1.010 (1.005-1.025) Urine Protein NEG (NEG-TRACE) MG/DL Urine Glucose (UA) NEG (NEG) MG/DL Urine Ketones NEG (NEG) MG/DL Urine Blood 2+ H (NEG) Urine Nitrite NEG (NEG) Ur Leukocyte Esterase 1+ H (NEG) Urine RBC 1-4 (0) /HPF Urine WBC 10-14 H (0-4) /HPF Ur Squamous Epith Cells 2+ /LPF Urine Bacteria 2+ /LPF Urine Test NEGATIVE (NEGATIVE) 07/12/21 Range/Units 10:18 WBC (4.8-10.8) X10*3/uL RBC (4.20-5.50) X10*6/uL Hgb (12.0-16.0) g/dl Hct (37-47) % MCV (80-98) fL MCH (27.0-33.0) pg MCHC (31.0-35.0) g/dl RDW (11.0-16.0) % Plt Count (160-400) X10*3/uL MPV (9.4-12.3) fL Immature Gran % (Auto) (0.0-0.4) % Neut % (Auto) (45-73) % Lymph % (Auto) (20-40) % [place] % (Auto) (2-11) % Eos % (Auto) (0-4) % Baso % (Auto) (0-2) % Lymph # (Auto) (1.2-4.9) X10*3/uL [place] # (Auto) (0.1-1.2) X10*3/uL Eos # (Auto) (0.0-0.4) X10*3/uL Baso # (Auto) (0.0-0.2) X10*3/uL Abs Immat Gran (auto) (0.00-0.03) X10*3/uL Absolute Neuts (auto) (2.0-8.3) X10*3/uL Absolute Nucleated RBC (0.0-0.012) X10*3/uL Nucleated RBC % (auto) (0.0-0.2) /100WBC Sodium 136 (135-145) mmol/L Potassium 3.4 (3.3-5.1) mmol/L Chloride 106 (96-108) mmol/L Carbon Dioxide 21 L (22-29) mmol/L Anion Gap 12 (12-20) BUN 7 L (9-16) mg/dL Creatinine 0.72 (0.5-1.4) mg/dL Estim Creat Clear Calc 96.9 Estimated GFR > 60 Random Glucose 117 H (60-115) mg/dL Calcium 8.8 D (8.4-10.2) mg/dL Total Bilirubin 0.7 (0.0-1.0) mg/dL AST 13 (5-31) U/L ALT 8 (0-31) U/L Alkaline Phosphatase 42 D (39-117) U/L Total Protein 6.9 (6.5-8.0) g/dL Albumin 4.0 (3.5-5.0) g/dL Urine Color Urine Appearance Urine pH (5.0-8.0) Ur Specific [place] (1.005-1.025) Urine Protein (NEG-TRACE) MG/DL Urine Glucose (UA) (NEG) MG/DL Urine Ketones (NEG) MG/DL Urine Blood (NEG) Urine Nitrite (NEG) Ur Leukocyte Esterase (NEG) Urine RBC (0) /HPF Urine WBC (0-4) /HPF Ur Squamous Epith Cells /LPF Urine Bacteria /LPF Urine Test (NEGATIVE) Discharge Plan Discharge Clinical Impression: UTI (urinary tract infection) Patient Disposition: Home, Self-Care Instructions: Urinary Tract Infection in Women (ED) Additional Instructions: Return to the ED for worsening abdominal pain, flank pain, fever, chills, nausea, vomiting, hematuria, dysuria, shortness of breath, chest pain, weakness, or any other concerning symptoms. Please follow up with CPP Prescriptions: New cefuroxime axetil 250 mg tablet 250 mg PO Q12H 7 Days Qty: 14 RF: 0 naproxen 500 mg tablet 500 mg PO BID PRN (Reason: pain) Qty: 20 RF: 0 No Action buspirone 7.5 mg tablet 7.5 mg PO BID Qty: 60 RF: 6 sertraline 25 mg tablet 25 mg PO DAILY 90 Days Qty: 90 RF: 2 Kevzara 200 mg/1.14 mL pen injector 200 mg subcut Q2W Qty: 2.28 RF: 3 tramadol 50 mg tablet 50 mg PO Q6H PRN (Reason: pain) Qty: 30 RF: 0 loratadine [Allergy Relief (loratadine)] 10 mg tablet 10 mg PO DAILY PRN (Reason: allergy symptoms) 90 Days Qty: 90 RF: 1 albuterol sulfate 90 mcg/actuation HFA aerosol inhaler 2 puff inhalation Q4-6H Qty: 6.7 RF: 1 ondansetron HCl [Zofran] 4 mg tablet 4 mg PO Q8H PRN (Reason: nausea and vomiting) Qty: 14 RF: 0 sumatriptan succinate [Imitrex] 25 mg tablet See Rx Instructions .ROUTE .COMPLEX Qty: 30 RF: 2 lidocaine HCl [Aspercreme (lidocaine HCl)] 4 % cream 1 applic topical TID RF: 0 tizanidine 2 mg tablet 2 mg PO TID PRNRF: 0 naproxen [EC-Naprosyn] 500 mg tablet,delayed release (DR/EC) 500 mg PO BID PRNRF: 0 diclofenac sodium [Voltaren] 1 % gel 2 g topical QID Qty: 100 RF: 2 Interventions: ED Discharge Assessment Last Done: 07/12/21 14:40 Discharge Date/Time: 07/12/21 14:41 [facility] Past Medical History Medical History Rheumatoid arthritis Surgical History H/O lithotripsy H/O tubal ligation History of back surgery Family History Family History Paternal Aunt Breast cancer Father Asthma Diabetes Mother Lupus Sister Lupus Epilepsy Social History Social History Household Members: None Housing: Apartment Are you a primary day care supervisor to a significant other at home: No Do you presently have visiting nurse or other home services: No Alcohol intake: never Patient Tobacco Use Status: Never used Tobacco e-Cigarette/Vaping Use: Never Used Advance Directives: No Advance Directives Information Provided: Yes Patient : No
[2021-07-12] MEDS: Ketorolac Tromethamine 15 MG/ML VIAL 30 MG IVPUSH (11:45)
[2021-07-12 13:12] VITALS: BP 116/69; PULSE 53; RESP 15; TEMP 36.7; O2SAT 99
== END 2021-07-12 14:41 | disposition home or self-care (01) ==
PROVIDERS: Physician Assistant; Emergency Provider Emergency Medicine; PCP Internal Medicine
DX: N39.0 Urinary tract infection, site not specified (principal); M54.5 Low back pain; R10.31 Right lower quadrant pain; R30.0 Dysuria; Z79.899 Other long term (current) drug therapy
CPT/HCPCS: 36415; 74176; 80053; 81001; 81025; 85025; 87086; 87088; 87186; 96361; 96374; 99284; J1885

== ENCOUNTER → 2021-07-24 08:23 | Outpatient (BNVA) | payer OTHER, SELFPAY | PROVIDERS: PCP Internal Medicine | DX: N39.3 Stress incontinence (female) (male) (principal); N20.0 Calculus of kidney; N39.0 Urinary tract infection, site not specified | CPT/HCPCS: 51798; 99212 ==

== ENCOUNTER 2021-08-23 10:25 | Outpatient (REF) | payer OTHER, SELFPAY ==
[2021-08-23 11:37] LABS: MANUAL DIFF FLAG NO
[2021-08-23 11:56] LABS: Basophils Percent Auto 0.4 % (0-2); Eosinophils Absolute Auto 0.1 X10*3/uL (0.0-0.4); Eosinophils Percent Auto 1.8 % (0-4); Hematocrit 40.5 % (37.0-47.0); Hemoglobin 13.4 g/dl (12.0-16.0); Imm Gran Abs Auto 0.01 X10*3/uL (0.00-0.03); Imm Gran Pct Auto 0.2 % (0.0-0.4); Lymphocytes Absolute Auto 1.7 X10*3/uL (1.2-4.9); Lymphocytes Percent Auto 34.7 % (20-40); Mean Corpuscular HGB Conc 33.1 g/dl (31.0-35.0); Mean Corpuscular Hemoglobin 28.8 pg (27.0-33.0); Mean Corpuscular Volume 87.1 fL (80.0-98.0); Mean Platelet Volume 9.5 fL (9.4-12.3); Monocytes Absolute Auto 0.5 X10*3/uL (0.1-1.2); Monocytes Percent Auto 10.3 % (2-11); Neutrophils Absolute Auto 2.6 x10*3/uL (2.0-8.3); Neutrophils Percent Auto 52.6 % (45-73); Platelet Count 239 X10*3/uL (160-400); Red Blood Count 4.65 X10*6/uL (4.20-5.50); Red Cell Distribution Width 12.2 % (11.0-16.0); White Blood Count 4.9 X10*3/uL (4.8-10.8)
[2021-08-23 12:29] LABS: Alanine Aminotransferase 13 U/L (0-31); Albumin Level 4.3 g/dL (3.5-5.0); Alkaline Phosphatase 54 U/L (39-117); Anion Gap 11 (12-20); Aspartate Amino Transferase 17 U/L (5-31); Bilirubin Total 0.6 mg/dL (0.0-1.0); Blood Urea Nitrogen 10 mg/dL (9-16); C Reactive Protein 0.05 mg/dL (< or = 0.50); Calcium 9.5 mg/dL (8.4-10.2); Carbon Dioxide 28 mmol/L (22-29); Chloride 104 mmol/L (96-108); Cholesterol 260 mg/dL; Estimated Glomerular Filt Rate > 60; Glucose Random 82 mg/dL (60-115); HDL Cholesterol 61 mg/dL; LDL Cholesterol Calculated 174 mg/dl; Potassium 4.1 mmol/L (3.3-5.1); Sodium 139 mmol/L (135-145); Total Protein 7.4 g/dL (6.5-8.0); Triglycerides 129 mg/dL
[2021-08-23 13:04] LABS: Reflex LDLD? No
[2021-08-23 13:15] LABS: Erythrocyte Sedimentation Rate 7 MM/HR (0-20)
== END 2021-08-23 10:26 | disposition home or self-care (01) ==
LOC: HO.LAB 10:25
PROVIDERS: PCP Internal Medicine; Visit Provider Nurse Practitioner Family
DX: M06.9 Rheumatoid arthritis, unspecified (principal); M54.9 Dorsalgia, unspecified
CPT/HCPCS: 36415; 80053; 80061; 85025; 85652; 86140; 99212

== ENCOUNTER → 2021-12-06 11:21 | Outpatient (BNVA) | payer OTHER, SELFPAY | PROVIDERS: PCP Internal Medicine; Visit Provider Nurse Practitioner Family | DX: M05.9 Rheumatoid arthritis with rheumatoid factor, unspecified (principal) | CPT/HCPCS: 99212 ==

== ENCOUNTER 2021-12-11 09:24 | Outpatient (REF) | payer OTHER, SELFPAY ==
[2021-12-11 09:52] LABS: MANUAL DIFF FLAG NO
[2021-12-11 10:31] LABS: Basophils Percent Auto 0.4 % (0-2); Eosinophils Absolute Auto 0.1 X10*3/uL (0.0-0.4); Eosinophils Percent Auto 1.3 % (0-4); Hematocrit 38.5 % (37.0-47.0); Hemoglobin 12.5 g/dl (12.0-16.0); Imm Gran Abs Auto 0.02 X10*3/uL (0.00-0.03); Imm Gran Pct Auto 0.4 % (0.0-0.4); Lymphocytes Absolute Auto 1.3 X10*3/uL (1.2-4.9); Lymphocytes Percent Auto 27.7 % (20-40); Mean Corpuscular HGB Conc 32.5 g/dl (31.0-35.0); Mean Corpuscular Hemoglobin 28.7 pg (27.0-33.0); Mean Corpuscular Volume 88.3 fL (80.0-98.0); Monocytes Absolute Auto 0.4 X10*3/uL (0.1-1.2); Monocytes Percent Auto 8.4 % (2-11); Neutrophils Absolute Auto 2.9 x10*3/uL (2.0-8.3); Neutrophils Percent Auto 61.8 % (45-73); Platelet Count 290 X10*3/uL (160-400); Red Blood Count 4.36 X10*6/uL (4.20-5.50); Red Cell Distribution Width 12.2 % (11.0-16.0); White Blood Count 4.6 X10*3/uL (4.8-10.8)
[2021-12-11 10:57] LABS: Alanine Aminotransferase 12 U/L (0-31); Albumin Level 3.9 g/dL (3.5-5.0); Alkaline Phosphatase 52 U/L (39-117); Anion Gap 12 (12-20); Aspartate Amino Transferase 15 U/L (5-31); Bilirubin Total 0.6 mg/dL (0.0-1.0); Blood Urea Nitrogen 10 mg/dL (9-16); C Reactive Protein 0.02 mg/dL (< or = 0.50); Calcium 9.1 mg/dL (8.4-10.2); Carbon Dioxide 26 mmol/L (22-29); Chloride 104 mmol/L (96-108); Estimated Glomerular Filt Rate > 60; Glucose Random 137 mg/dL (60-115); Potassium 3.9 mmol/L (3.3-5.1); Sodium 138 mmol/L (135-145); Total Protein 6.9 g/dL (6.5-8.0)
[2021-12-11 11:10] LABS: Erythrocyte Sedimentation Rate 6 MM/HR (0-20)
== END 2021-12-11 09:25 | disposition home or self-care (01) ==
LOC: HO.LAB 09:24
PROVIDERS: PCP Internal Medicine; Visit Provider Nurse Practitioner Family
DX: M06.9 Rheumatoid arthritis, unspecified (principal)
CPT/HCPCS: 36415; 80053; 85025; 85652; 86140

== ENCOUNTER 2022-06-03 10:55 | Outpatient (REF) | payer OTHER, SELFPAY ==
[2022-06-04 13:05] LABS: BV Int Neg Control Negative (Negative); BV Int Pos Control Positive (Positive)
== END 2022-06-03 10:56 | disposition home or self-care (01) ==
LOC: HO.LAB 10:55
PROVIDERS: Visit Provider Advanced Practice Midwife
DX: N94.818 Other vulvodynia (principal)
CPT/HCPCS: 87480; 87510; 87660; 99212

== ENCOUNTER 2022-06-05 09:04 | Emergency (ER) | payer OTHER, SELFPAY ==
[2022-06-05 09:27] VITALS: BP 146/68; PULSE 67; RESP 16; TEMP 36.9; O2SAT 98; BMI 25.0
[2022-06-05] MEDS: Lidocaine HCl 1 % MPF 2 ML VIAL INFILTRATI ×2 (09:59→10:00)
--- NOTE | 2022-06-05 10:24 | ED_ITS ---
HPI - General Adult General Chief complaint: Wound/Laceration Stated complaint: Vaginal pain Time Seen by Provider: 06/05/22 09:36 Source: patient Mode of arrival: ambulatory History of Present Illness HPI narrative: 47-year-old female with a past medical history of nephrolithiasis, frequent UTIs, arthritis, presenting to the ED complaining painful vaginal bumps x5 days. Admits was seen by OBGYN on 06/03 in prescribed antibiotics which she has taken 1 day of without relief. Reports increasing pain/pressure, and inability to sit secondary to discomfort. Denies fever, chills, drainage, inability to urinate, hematuria, bloody BMs, vaginal bleeding, vaginal discharge Onset (ago): day(s) Related Data Home Medications Medication Instructions Recorded Confirmed lidocaine HCl 4 % topical cream 1 applic topical TID 07/25/20 12/06/21 (Aspercreme (lidocaine HCl)) naproxen 500 mg tablet,delayed 500 mg PO BID PRN 07/25/20 12/06/21 release (EC-Naprosyn) buspirone 10 mg tablet 10 mg PO TID 07/24/21 12/06/21 sertraline 100 mg tablet 100 mg PO DAILY 07/24/21 12/06/21 sertraline 50 mg tablet 50 mg PO DAILY 07/24/21 12/06/21 Previous Rx's Medication Instructions Recorded diclofenac sodium 1 % topical gel 2 g topical QID #100 grams 11/28/20 (Voltaren) tramadol 50 mg tablet 50 mg PO Q6H PRN pain #30 tabs 02/28/21 loratadine 10 mg tablet (Allergy 10 mg PO DAILY PRN allergy 03/05/21 Relief (loratadine)) symptoms 90 days #90 tabs albuterol sulfate 90 mcg/actuation 2 puff inhalation Q4-6H #6.7 grams 03/21/21 aerosol inhaler sumatriptan succinate 25 mg tablet See Rx Instructions PO .COMPLEX 05/03/21 (Imitrex) #30 tabs oxybutynin chloride 10 mg 10 mg PO DAILY OAB 30 days #30 tabs 07/24/21 tablet,extended release 24 hr sarilumab 200 mg/1.14 mL 200 mg (1.14 mL) subcut Q2W #2.28 11/13/21 subcutaneous pen injector (Wu) mL sulfamethoxazole 800 1 tab PO BID #10 tabs 06/03/22 mg-trimethoprim 160 mg tablet (Bactrim DS) acetaminophen 500 mg tablet 500 mg PO Q6H PRN fever or pain 06/05/22 (Tylenol Extra Strength) #14 tabs ibuprofen 800 mg tablet 800 mg PO Q8H PRN pain #14 tabs 06/05/22 metronidazole 500 mg tablet 500 mg PO BID 7 days #14 tabs 06/05/22 sulfamethoxazole 800 1 tab PO Q12H 2 days #4 tabs 06/05/22 mg-trimethoprim 160 mg tablet (Bactrim DS) Allergies Allergy/AdvReac Type Severity Reaction Status Date / Time Penicillins [PENICILLINS] Allergy Intermediate RASH Verified 06/03/22 10:28 adalimumab [Humira] Allergy Unknown rash Verified 06/03/22 10:28 methotrexate Allergy Unknown HIVES Verified 06/03/22 10:28 Review of Systems Review of Systems: Constitutional:No Fever, No Chills ENT/Mouth: No Ear Pain, No Nasal Congestion, No Swallowing Difficulty Cardiovascular: No Chest Pain, No SOB Respiratory: No Cough, No Sputum, No Wheezing Gastrointestinal: No Nausea, No Vomiting, No Diarrhea, No Constipation, No Abdominal pain Genitourinary: No Dysuria, +vaginal bumps, no vaginal d/c or lesions, No vaginal bleeding, No Urinary Frequency, No Hematuria, No Urinary Incontinence/retention, No Flank Pain Musculoskeletal: No joint pain, No Myalgias, No Joint Swelling Skin: No Skin Lesions, No rash Neuro: No Weakness Yes all other systems are reviewed and are negative Constitutional: Constitutional: Reports as per [facility] Past Medical History Attestation statement: The following information was validated with the patient. Medical History Bilateral nephrolithiasis Frequent UTI Rheumatoid arthritis Surgical History H/O lithotripsy H/O tubal ligation History of back surgery Family History Family History Paternal Aunt Breast cancer Father Asthma Diabetes Mother Lupus Sister Lupus Epilepsy Social History Social History Household Members: None Housing: Apartment Are you a primary restorative care technician to a significant other at home: No Do you presently have visiting nurse or other home services: No Alcohol intake: never Patient Tobacco Use Status: Never used Tobacco e-Cigarette/Vaping Use: Never Used Advance Directives: No Advance Directives Information Provided: Yes Physical Exam ED Vital Signs: Vital Signs - 24 hr 06/05/22 09:27 Temperature 98.4 F Pulse Rate 67 Respiratory Rate 16 Blood Pressure 146/68 H Pulse Oximetry 98 Oxygen Delivery Method Room Air BMI result Body Mass Index 25.0 Const General: cooperative, healthy appearing and no acute distress Orientation/consciousness: patient oriented x3 Limitations: no limitations HENMT Head: Yes normal to inspection and Yes atraumatic Ears: hearing grossly normal bilaterally General nose exam: Normal external nose present Face and sinus: Yes normal facial exam Eyes General: appearance normal, both eyes and all related structures EOM: EOMs intact bilaterally Neck Neck: Yes normal visual inspection and Yes no meningeal signs Resp Effort & Inspection: normal respiratory effort and no respiratory distress Cardio Rate: regular rate GI Inspection: Yes normal to inspection Palpation (GI): Soft to palpation, nontender, no guarding and not rigid Other: + two indurated abscesses noted to right labia with small area of fluctuance. No pointing. No overlying cellulitis. Tender to palpation. No appreciable lesions/cuts, no bleeding or discharge/pus drainage. No evidence of Dorothy's gangrene Skin Rashes: no rashes Wounds: no wounds Neuro General: patient oriented x3, tone normal and no meningeal signs Gait exam (Neuro): Normal gait present Extrem General: Yes normal to inspection Course Course Course Narrative: Cultures from 06/03 notably positive for bacterial vaginosis. Discussed with patient if she is asymptomatic do not have to treat, she preferred treatment. Will additionally prescribe metronidazole 500 mg b.i.d. Procedures Abscess I/D Site: other (labia) Side (if applicable): right Local Anesthetic: lidocaine 1% Amount of anesthesia used (mL): 2 Technique: incised with blade Sent for culture/gram staining?: No Irrigation: No Packing used?: none Medical Decision Making MDM Narrative Medical decision making narrative: 47-year-old female with a past medical history of nephrolithiasis, frequent UTIs, arthritis, presenting to the ED complaining painful vaginal bumps x5 days. On exam vital signs stable, NAD, nontoxic appearing, physical exam as above. Patient has been antibiotics x1 full day. Will perform I&D and extend 5 day course of antibiotics to a total of 7 days. patient reports she has follow-up with OBGYN tomorrow Results discussed with patient including worrisome signs and symptoms and strict return precautions, and when to return to the emergency department. They verbalized understanding and feel safe for discharge at this time. Medical Records Medical records reviewed: Yes I reviewed the patient's medical records. Lab Data Lab results reviewed: Yes I reviewed the patient's lab results. Discharge Plan Discharge Clinical Impression: Abscess of right genital labia, Bacterial vaginosis Patient Disposition: Home, Self-Care Instructions: Abscess (ED), Abscess Follow-up (ED) Additional Instructions: Your abscesses were opened today in the emergency department, keep her follow-up tomorrow with OBGYN. Continue taking previously prescribed antibiotics, I will extend them by 2 days. Take them until completion. Apply warm compresses/warm baths to help area drain. Take Tylenol and Motrin. If area worsens, gross, you have pus drainage, develops fever, your unable to urinate please return to the emergency department Your cultures from her OBGYN visit were positive for bacterial vaginosis. Metronidazole is an antibiotic please take as prescribed. Do not drink alcohol while on this medication as well making very sick. Clemencia abscesos se abrieron hoy en el departamento de emergencias, mantenga valladares seguimiento ma?jd con OBGYN. Contin?e tomando los antibi?ticos prescritos previamente, los software design engineer? por 2 d?as. T?melos hasta completarlos. Aplique compresas tibias/ba?os tibios para ayudar a drenar el ?juan. Ree Tylenol y Motrin. Si el ?juan empeora, asqueroso, tiene drenaje de pus, tiene fiebre, no puede orinar, regrese al departamento de emergencias. Clemencia cultivos de valladares visita al OBGYN dieron positivo para vaginosis bacteriana. El metronidazol es un antibi?cecilia, t?hagan seg?n lo prescrito. No joey alcohol mientras est? tomando kristin medicamento ya que se enfermar? mucho. Prescriptions: New sulfamethoxazole-trimethoprim [Bactrim DS] 800-160 mg tablet 1 tab PO Q12H 2 Days Qty: 4 0RF metronidazole 500 mg tablet 500 mg PO BID 7 Days Qty: 14 0RF ibuprofen 800 mg tablet 800 mg PO Q8H PRN (Reason: pain) Qty: 14 0RF acetaminophen [Tylenol Extra Strength] 500 mg tablet 500 mg PO Q6H PRN (Reason: fever or pain) Qty: 14 0RF No Action tramadol 50 mg tablet 50 mg PO Q6H PRN (Reason: pain) Qty: 30 0RF loratadine [Allergy Relief (loratadine)] 10 mg tablet 10 mg PO DAILY PRN (Reason: allergy symptoms) 90 Days Qty: 90 1RF albuterol sulfate 90 mcg/actuation HFA aerosol inhaler 2 puff inhalation Q4-6H Qty: 6.7 1RF Kevzara 200 mg/1.14 mL pen injector 200 mg subcut Q2W Qty: 2.28 3RF sumatriptan succinate [Imitrex] 25 mg tablet See Rx Instructions .ROUTE .COMPLEX Qty: 30 2RF Rx Instructions: take 1 tab at onset of headache; if no relief may repeat 1 tab after at least 2 hrs; max = 4 tabs/24 hr lidocaine HCl [Aspercreme (lidocaine HCl)] 4 % cream 1 applic topical TID naproxen [EC-Naprosyn] 500 mg tablet,delayed release (DR/EC) 500 mg PO BID PRN diclofenac sodium [Voltaren] 1 % gel 2 g topical QID Qty: 100 2RF Rx Instructions: apply 1 gram to bilateral thumbs twice daily as needed for pain sertraline 50 mg tablet 50 mg PO DAILY buspirone 10 mg tablet 10 mg PO TID sertraline 100 mg tablet 100 mg PO DAILY oxybutynin chloride 10 mg tablet extended release 24hr 10 mg PO DAILY 30 Days Qty: 30 3RF sulfamethoxazole-trimethoprim [Bactrim DS] 800-160 mg tablet 1 tab PO BID Qty: 10 0RF Referrals: Smooth Mckoy MD [Physician] - 1 day Stand Alone Forms: Work/School Release Print Language: Israeli
== END 2022-06-05 10:56 | disposition home or self-care (01) ==
PROVIDERS: Emergency Provider Emergency Medicine Emergency Medical Services; PCP Internal Medicine
DX: N76.4 Abscess of vulva (principal); N76.0 Acute vaginitis
CPT/HCPCS: 56405; 99283; 99284

== ENCOUNTER → 2022-06-06 09:57 | Outpatient (BNVA) | payer OTHER, SELFPAY | PROVIDERS: PCP Internal Medicine; Visit Provider Advanced Practice Midwife | DX: N94.818 Other vulvodynia (principal) | CPT/HCPCS: 99212 ==

== ENCOUNTER 2022-10-14 08:45 | Emergency (ER) | payer OTHER, SELFPAY ==
--- NOTE | ~2022-10-14 | CT_ITS ---
EXAMINATION: CT ABDOMEN AND PELVIS WITHOUT CONTRAST CLINICAL INFORMATION: Back pain and hematuria COMPARISON: July 12, 2021 TECHNIQUE: Multidetector volumetric imaging was performed from the superior aspect of the liver through the pubic symphysis. Sagittal and coronal reformatted images were obtained on the technologist's workstation. This CT examination was performed using dose optimization techniques as appropriate, variously including the following: *Automated exposure control *Adjustment of mA and/or kV according to patient size (this includes techniques or standardized protocols for targeted exams where dose is matched to indication/reason for exam; i.e. extremities or head) *Use of iterative reconstruction technique DLP: 606 mGy-cm FINDINGS: LUNG BASES: Patient has developed a small pericardial effusion. No lung base parenchymal abnormalities appreciated. No pleural effusion. LIVER, GALLBLADDER, AND BILIARY TREE: The liver is normal in size, shape, and attenuation. No focal hepatic lesion or biliary ductal dilatation is present. The gallbladder is unremarkable with no evidence of radiopaque gallstones, gallbladder wall thickening, or obvious pericholecystic inflammatory changes. PANCREAS: Unremarkable. SPLEEN: Unremarkable. ADRENAL GLANDS: Unremarkable. KIDNEYS AND URETERS: The kidneys are normal in size, shape, and attenuation. No hydronephrosis, hydroureter, or calculi seen. No perinephric stranding. BLADDER: Unremarkable. GASTROINTESTINAL TRACT: No dilated loops of large or small bowel are seen. No free air is identified. Trace free fluid about the pelvis is seen. No pericolonic inflammatory changes appreciated. No evidence of acute appendicitis. ABDOMINAL WALL: No significant hernia is appreciated. LYMPH NODES: Normal. VASCULAR: Unremarkable. PELVIC VISCERA: Unremarkable. OSSEOUS STRUCTURES: No suspicious destructive bony lesions identified. There is degenerative disc disease seen at the L5-S1 level. CT/CT abdomen pelvis wo IV con IMPRESSION: No evidence of obstructive uropathy. No evidence of bowel ileus or obstruction. Development of small pericardial effusion. Fleischner guidelines were followed.
[2022-10-14 09:32] VITALS: BP 114/67; PULSE 88; RESP 16; TEMP 36.8; O2SAT 99; BMI 25.0
[2022-10-14 09:53] LABS: Appearance Urine Clear; Color Urine Yellow; Glucose Urine UA Negative (Negative); Leukocyte Esterase Urine Negative (Negative); Nitrite Urine Negative (Negative); Specific Gravity - Urine 1.015 (1.005-1.025); UMIC TRIGGER UACC YES; Urine Blood Small (1+) (Negative); Urine Ketones Negative (Negative); Urine Protein Negative (Neg-Trace)
[2022-10-14 10:03] LABS: Bacteria Urine None Seen (None Seen); Hyaline Casts Urine 0-2 /LPF (0-2); Squamous Epithelial Cell Urine 0-2 /HPF (0-2); WBC Urine 0-5 /HPF (0-5)
--- NOTE | 2022-10-14 10:46 | ED.GENADULT ---
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 She denies any injury or falls. She states the pain is 10/10 this morning and worse with any movement. She has increased urinary frequency but no dysuria, urgency or hematuria. She reports hx kidney stones a few years ago but this pain is different. She denies any fevers, bowel or bladder incontinence. MD complaint: right lower back pain Onset (ago): week(s) (1) Location: back Radiation: non-radiation Severity: moderate Severity scale (1-10): 6 Quality: burning and stabbing Pain Consistency: constant Relieving factors: rest Exacerbating factors: movement Associated symptoms: denies other symptoms Treatments prior to arrival: none Related Data Home Medications Medication Instructions Recorded Confirmed lidocaine HCl 4 % topical cream 1 applic topical TID 07/25/20 12/06/21 (Aspercreme (lidocaine HCl)) naproxen 500 mg tablet,delayed 500 mg PO BID PRN 07/25/20 12/06/21 release (EC-Naprosyn) buspirone 10 mg tablet 10 mg PO TID 07/24/21 12/06/21 sertraline 100 mg tablet 100 mg PO DAILY 07/24/21 12/06/21 sertraline 50 mg tablet 50 mg PO DAILY 07/24/21 12/06/21 Previous Rx's Medication Instructions Recorded diclofenac sodium 1 % topical gel 2 g topical QID #100 grams 11/28/20 (Voltaren) tramadol 50 mg tablet 50 mg PO Q6H PRN pain #30 tabs 02/28/21 loratadine 10 mg tablet (Allergy 10 mg PO DAILY PRN allergy 03/05/21 Relief (loratadine)) symptoms 90 days #90 tabs albuterol sulfate 90 mcg/actuation 2 puff inhalation Q4-6H #6.7 grams 03/21/21 aerosol inhaler sumatriptan succinate 25 mg tablet See Rx Instructions PO .COMPLEX 05/03/21 (Imitrex) #30 tabs oxybutynin chloride 10 mg 10 mg PO DAILY OAB 30 days #30 tabs 07/24/21 tablet,extended release 24 hr sarilumab 200 mg/1.14 mL 200 mg (1.14 mL) subcut Q2W #2.28 11/13/21 subcutaneous pen injector (Kevzara) mL sulfamethoxazole 800 1 tab PO BID #10 tabs 06/03/22 mg-trimethoprim 160 mg tablet (Bactrim DS) acetaminophen 500 mg tablet 500 mg PO Q6H PRN fever or pain 06/05/22 (Tylenol Extra Strength) #14 tabs ibuprofen 800 mg tablet 800 mg PO Q8H PRN pain #14 tabs 06/05/22 metronidazole 500 mg tablet 500 mg PO BID 7 days #14 tabs 06/05/22 sulfamethoxazole 800 1 tab PO Q12H 2 days #4 tabs 06/05/22 mg-trimethoprim 160 mg tablet (Bactrim DS) cyclobenzaprine 10 mg tablet 10 mg PO TID PRN muscle spasm #14 10/14/22 tabs ibuprofen 600 mg tablet 600 mg PO Q8H PRN pain #14 tabs 10/14/22 lidocaine 5 % topical patch 1 patch topical DAILY #15 ea 10/14/22 Allergies Allergy/AdvReac Type Severity Reaction Status Date / Time Penicillins [PENICILLINS] Allergy Intermediate RASH Verified 06/06/22 10:03 adalimumab [Humira] Allergy Unknown rash Verified 06/06/22 10:03 methotrexate Allergy Unknown HIVES Verified 06/06/22 10:03 Review of Systems Review of Systems: Constitutional: No Fever, No Chills ENT/Mouth: No sore throat, No Rhinorrhea Cardiovascular: No Chest Pain, No SOB Respiratory: No Cough, No Sputum, No Wheezing, No dyspnea Gastrointestinal: No Nausea, No Vomiting, No Diarrhea, No abdominal Pain Genitourinary: No Dysuria, + Urinary Frequency, No Hematuria Musculoskeletal: No joint pain, No Myalgias Skin: No Skin Lesions, No rash Neuro: No Weakness, No Numbness, No Dizziness, No Headache Psych: + Anxiety/Panic Heme/Lymph: No Bruising, No Lymphadenopathy Endocrine: No Polyuria, No Polydipsia PMFSH Past Medical History Medical History Bilateral nephrolithiasis Frequent UTI Rheumatoid arthritis Surgical History H/O lithotripsy H/O tubal ligation History of back surgery Family History Family History Paternal Aunt Breast cancer Father Asthma Diabetes Mother Lupus Sister Lupus Epilepsy Social History Social History Household Members: None Housing: Apartment Are you a primary skin care technician to a significant other at home: No Do you presently have visiting nurse or other home services: No Alcohol intake: never Patient Tobacco Use Status: Never used Tobacco e-Cigarette/Vaping Use: Never Used Advance Directives: Yes Advance Directives Information Provided: No Advance Directives on File: No Physical Exam ED Vital Signs: Vital Signs - 24 hr 10/14/22 09:32 Temperature 98.2 F Pulse Rate 88 Respiratory Rate 16 Blood Pressure 114/67 Pulse Oximetry 99 Oxygen Delivery Method Room Air BMI result Body Mass Index 25.0 Appearance: Alert. Oriented X3. No acute distress. HEENT: normal external inspection CVS: Normal heart rate and rhythm. Pulses normal. Respiratory: No respiratory distress. Breath sounds normal. Abdomen: Soft and nontender. +BS x4 Back: right low lumbar area with soft tissue tenderness, no midline tenderness. pain with lateral rotation. negative straight leg raise test. Skin: Skin warm and dry. Normal skin color. Normal skin turgor. No rashes. Extremities: No lower extremity edema. Neuro: Oriented X 3. No motor deficit. No sensory deficit. DTRs normal. Steady gait Course Course Course Narrative: 47 yo female presenting with right lower back pain x1 week. +urinary frequency but no dysuria, N/V or abd pain. No fevers. No red flag symptoms of LBP. Small microscopic hematuria on UA without infection. hx stones, will get CT scan for further evaluation and r/o obstructive uropathy. Reevaluation(s) Reevaluation #1: Labs normal. CT without obstructive uropathy. most likely MSK pain. will d/c home with muscle relaxer, nsaid and lidoderm. stable for d/c home. Medications Administered Discontinued Medications Generic Name Dose Route Start Last Admin Trade Name Damien PRN Reason Stop Dose Admin Ibuprofen 600 mg 10/14/22 11:29 10/14/22 11:50 Ibuprofen 600 Mg Tablet PO 10/14/22 11:30 600 mg ONCE ONE Administration Oxycodone HCl 5 mg 10/14/22 11:29 10/14/22 11:50 Oxycodone Hcl Immed Release 5 Mg Tablet PO 10/14/22 11:30 5 mg ONCE ONE Administration Medical Decision Making Lab Data Result Diagrams: 10/14/22 11:57 10/14/22 11:57 Labs: Lab Results 10/14/22 10/14/22 10/14/22 Range/Units 09:41 11:57 11:57 WBC 6.1 (4.8-10.8) X10*3/uL RBC 4.68 (4.20-5.50) X10*6/uL Hgb 12.3 (12.0-16.0) g/dl Hct 38.9 (37.0-47.0) % MCV 83.1 (80.0-98.0) fL MCH 26.3 L (27.0-33.0) pg MCHC 31.6 (31.0-35.0) g/dl RDW 13.6 (11.0-16.0) % Plt Count 235 (160-400) X10*3/uL MPV 9.4 (9.4-12.3) fL Immature Gran % (Auto) 0.3 (0.0-0.4) % Neut % (Auto) 78.2 H (45-73) % Lymph % (Auto) 7.8 L (20-40) % [place] % (Auto) 12.7 H (2-11) % Eos % (Auto) 0.7 (0-4) % Baso % (Auto) 0.3 (0-2) % Lymph # (Auto) 0.5 L (1.2-4.9) X10*3/uL [place] # (Auto) 0.8 (0.1-1.2) X10*3/uL Eos # (Auto) 0.0 (0.0-0.4) X10*3/uL Baso # (Auto) 0.0 (0.0-0.2) X10*3/uL Abs Immat Gran (auto) 0.02 (0.00-0.03) X10*3/uL Absolute Neuts (auto) 4.8 (2.0-8.3) x10*3/uL Absolute Nucleated RBC 0.000 (0.0-0.012) X10*3/uL Nucleated RBC % (auto) 0.0 (0.0-0.2) /100WBC Sodium 138 (135-145) mmol/L Potassium 4.2 (3.3-5.1) mmol/L Chloride 106 (96-108) mmol/L Carbon Dioxide 26 (22-29) mmol/L Anion Gap 10 L (12-20) BUN 9 (9-16) mg/dL Creatinine 0.74 (0.5-1.4) mg/dL Estim Creat Clear Calc 86.0 Estimated GFR > 60 Random Glucose 86 (60-115) mg/dL Calcium 9.0 (8.4-10.2) mg/dL Magnesium 2.1 (1.6-2.6) mg/dL Total Bilirubin 0.3 (0.0-1.0) mg/dL Direct Bilirubin < 0.2 (0.0-0.5) mg/dL AST 14 (5-31) U/L ALT 11 (0-31) U/L Alkaline Phosphatase 61 (39-117) U/L Total Protein 7.4 (6.5-8.0) g/dL Albumin 4.0 (3.5-5.0) g/dL Urine Color Yellow Urine Appearance Clear Urine pH 6.0 (5.0-9.0) Ur Specific Ann[place] 1.015 (1.005-1.025) Urine Protein Negative (Neg-Trace) mg/dL Urine Glucose (UA) Negative (Negative) mg/dL Urine Ketones Negative (Negative) mg/dL Urine Blood Small (1+) H (Negative) Urine Nitrite Negative (Negative) Ur Leukocyte Esterase Negative (Negative) Urine RBC 3-5 H (0-2) /HPF Urine WBC 0-5 (0-5) /HPF Ur Squamous Epith Cells 0-2 (0-2) /HPF Urine Bacteria None Seen (None Seen) Hyaline Casts 0-2 (0-2) /LPF Discharge Plan Discharge Clinical Impression: Low back pain Patient Disposition: Home, Self-Care Instructions: Acute Low Back Pain (ED), Lower Back Exercises (ED) Additional Instructions: Your urine test was negative for infection. Your CT scan did not show any evidence of kidney stones. Your back pain is most likely muscular. No bending, lifting or twisting. Use ice several times per day for 20 minutes at a time for the next 48 hours and then change to heat. Take medications as prescribed to help with pain and discomfort. Follow up with your Primary Care Doctor this week. If your pain worsens, if you develop new numbness, tingling, weakness, loss of function or incontinence call 911 or come back to the ER right away for evaluation. Prescriptions: New cyclobenzaprine 10 mg tablet 10 mg PO TID PRN (Reason: muscle spasm) Qty: 14 0RF ibuprofen 600 mg tablet 600 mg PO Q8H PRN (Reason: pain) Qty: 14 0RF lidocaine 5 % adhesive patch,medicated 1 patch topical DAILY Qty: 15 0RF Rx Instructions: leave on most painful area for up to 12 hrs No Action tramadol 50 mg tablet 50 mg PO Q6H PRN (Reason: pain) Qty: 30 0RF loratadine [Allergy Relief (loratadine)] 10 mg tablet 10 mg PO DAILY PRN (Reason: allergy symptoms) 90 Days Qty: 90 1RF albuterol sulfate 90 mcg/actuation HFA aerosol inhaler 2 puff inhalation Q4-6H Qty: 6.7 1RF Kevzara 200 mg/1.14 mL pen injector 200 mg subcut Q2W Qty: 2.28 3RF sumatriptan succinate [Imitrex] 25 mg tablet See Rx Instructions .ROUTE .COMPLEX Qty: 30 2RF Rx Instructions: take 1 tab at onset of headache; if no relief may repeat 1 tab after at least 2 hrs; max = 4 tabs/24 hr sulfamethoxazole-trimethoprim [Bactrim DS] 800-160 mg tablet 1 tab PO Q12H 2 Days Qty: 4 0RF metronidazole 500 mg tablet 500 mg PO BID 7 Days Qty: 14 0RF ibuprofen 800 mg tablet 800 mg PO Q8H PRN (Reason: pain) Qty: 14 0RF acetaminophen [Tylenol Extra Strength] 500 mg tablet 500 mg PO Q6H PRN (Reason: fever or pain) Qty: 14 0RF lidocaine HCl [Aspercreme (lidocaine HCl)] 4 % cream 1 applic topical TID naproxen [EC-Naprosyn] 500 mg tablet,delayed release (DR/EC) 500 mg PO BID PRN diclofenac sodium [Voltaren] 1 % gel 2 g topical QID Qty: 100 2RF Rx Instructions: apply 1 gram to bilateral thumbs twice daily as needed for pain sertraline 50 mg tablet 50 mg PO DAILY buspirone 10 mg tablet 10 mg PO TID sertraline 100 mg tablet 100 mg PO DAILY oxybutynin chloride 10 mg tablet extended release 24hr 10 mg PO DAILY 30 Days Qty: 30 3RF sulfamethoxazole-trimethoprim [Bactrim DS] 800-160 mg tablet 1 tab PO BID Qty: 10 0RF Interventions: ED Discharge Assessment Last Done: 10/14/22 13:13 Discharge Date/Time: 10/14/22 13:13
[2022-10-14] MEDS: oxyCODONE HCl Immed Release 5 MG TABLET PO (11:50)
[2022-10-14] MEDS: Ibuprofen 600 MG TABLET PO (11:50)
[2022-10-14 12:01] LABS: MANUAL DIFF FLAG NO
[2022-10-14 12:02] LABS: Basophils Percent Auto 0.3 % (0-2); Eosinophils Percent Auto 0.7 % (0-4); Hematocrit 38.9 % (37.0-47.0); Hemoglobin 12.3 g/dl (12.0-16.0); Imm Gran Abs Auto 0.02 X10*3/uL (0.00-0.03); Imm Gran Pct Auto 0.3 % (0.0-0.4); Lymphocytes Absolute Auto 0.5 X10*3/uL (1.2-4.9); Lymphocytes Percent Auto 7.8 % (20-40); Mean Corpuscular HGB Conc 31.6 g/dl (31.0-35.0); Mean Corpuscular Hemoglobin 26.3 pg (27.0-33.0); Mean Corpuscular Volume 83.1 fL (80.0-98.0); Mean Platelet Volume 9.4 fL (9.4-12.3); Monocytes Absolute Auto 0.8 X10*3/uL (0.1-1.2); Monocytes Percent Auto 12.7 % (2-11); Neutrophils Absolute Auto 4.8 x10*3/uL (2.0-8.3); Neutrophils Percent Auto 78.2 % (45-73); Platelet Count 235 X10*3/uL (160-400); Red Blood Count 4.68 X10*6/uL (4.20-5.50); Red Cell Distribution Width 13.6 % (11.0-16.0); White Blood Count 6.1 X10*3/uL (4.8-10.8)
[2022-10-14 12:19] LABS: Alanine Aminotransferase 11 U/L (0-31); Alkaline Phosphatase 61 U/L (39-117); Anion Gap 10 (12-20); Aspartate Amino Transferase 14 U/L (5-31); Bilirubin Direct < 0.2 mg/dL (0.0-0.5); Bilirubin Total 0.3 mg/dL (0.0-1.0); Blood Urea Nitrogen 9 mg/dL (9-16); Carbon Dioxide 26 mmol/L (22-29); Chloride 106 mmol/L (96-108); Estimated Glomerular Filt Rate > 60; Glucose Random 86 mg/dL (60-115); Magnesium 2.1 mg/dL (1.6-2.6); Potassium 4.2 mmol/L (3.3-5.1); Sodium 138 mmol/L (135-145); Total Protein 7.4 g/dL (6.5-8.0)
== END 2022-10-14 13:13 | disposition home or self-care (01) ==
PROVIDERS: Physician Assistant; Emergency Provider Student in an Organized Health Care Education/Training Program; PCP Internal Medicine
DX: M54.50 Low back pain, unspecified (principal); Z79.899 Other long term (current) drug therapy
CPT/HCPCS: 36415; 74176; 80048; 80076; 81001; 83735; 85025; 99284

== ENCOUNTER 2022-10-27 10:23 | Emergency (ER) | payer OTHER, SELFPAY ==
[2022-10-27 10:33] VITALS: BP 120/87; PULSE 78; RESP 17; TEMP 36.6; O2SAT 99; BMI 25.0
[2022-10-27 10:53] LABS: IDNOW Serial# 6674DD1D; Strep A Nucleic Acid Negative (Negative)
[2022-10-27 11:26] LABS: Influenza A PCR NEGATIVE (Negative); Influenza B PCR NEGATIVE (Negative); Resp Syncy Virus RNA Qual PCR NEGATIVE (Negative); SARS COV2 PCR INHOUSE NEGATIVE (Negative)
--- NOTE | 2022-10-27 12:03 | ED_ITS ---
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 Patient states that she has had a sore throat, headache, and a cough for the last 2 days. Patient denies any dizziness, lightheadedness, abdominal pain, nausea, vomiting, fever, chills, blurry vision, double vision, loss of vision, chest pain, difficulty breathing, shortness of breath, back pain, night sweats, pain with urination, increased urinary frequency, increased urinary urgency, blood in her urine or stool, syncope or a near syncopal episode, recent trauma or falls, bowel incontinence, bladder incontinence, bowel retention, bladder retention, or any other complaints at this time. Onset (ago): day(s) (2) Location: head Radiation: non-radiation Severity: mild Severity scale (1-10): 3 Quality: aching and dull Pain Consistency: constant Relieving factors: none Exacerbating factors: none Associated symptoms: cough Treatments prior to arrival: none Related Data Home Medications Medication Instructions Recorded Confirmed lidocaine HCl 4 % topical cream 1 applic topical TID 07/25/20 12/06/21 (Aspercreme (lidocaine HCl)) naproxen 500 mg tablet,delayed 500 mg PO BID PRN 07/25/20 12/06/21 release (EC-Naprosyn) buspirone 10 mg tablet 10 mg PO TID 07/24/21 12/06/21 sertraline 100 mg tablet 100 mg PO DAILY 07/24/21 12/06/21 sertraline 50 mg tablet 50 mg PO DAILY 07/24/21 12/06/21 Previous Rx's Medication Instructions Recorded diclofenac sodium 1 % topical gel 2 g topical QID #100 grams 11/28/20 (Voltaren) tramadol 50 mg tablet 50 mg PO Q6H PRN pain #30 tabs 02/28/21 loratadine 10 mg tablet (Allergy 10 mg PO DAILY PRN allergy 03/05/21 Relief (loratadine)) symptoms 90 days #90 tabs albuterol sulfate 90 mcg/actuation 2 puff inhalation Q4-6H #6.7 grams 03/21/21 aerosol inhaler sumatriptan succinate 25 mg tablet See Rx Instructions PO .COMPLEX 05/03/21 (Imitrex) #30 tabs oxybutynin chloride 10 mg 10 mg PO DAILY OAB 30 days #30 tabs 07/24/21 tablet,extended release 24 hr sarilumab 200 mg/1.14 mL 200 mg (1.14 mL) subcut Q2W #2.28 11/13/21 subcutaneous pen injector (Kevzara) mL sulfamethoxazole 800 1 tab PO BID #10 tabs 06/03/22 mg-trimethoprim 160 mg tablet (Bactrim DS) acetaminophen 500 mg tablet 500 mg PO Q6H PRN fever or pain 06/05/22 (Tylenol Extra Strength) #14 tabs ibuprofen 800 mg tablet 800 mg PO Q8H PRN pain #14 tabs 06/05/22 metronidazole 500 mg tablet 500 mg PO BID 7 days #14 tabs 06/05/22 sulfamethoxazole 800 1 tab PO Q12H 2 days #4 tabs 06/05/22 mg-trimethoprim 160 mg tablet (Bactrim DS) cyclobenzaprine 10 mg tablet 10 mg PO TID PRN muscle spasm #14 10/14/22 tabs ibuprofen 600 mg tablet 600 mg PO Q8H PRN pain #14 tabs 10/14/22 lidocaine 5 % topical patch 1 patch topical DAILY #15 ea 10/14/22 lidocaine HCl 2 % mucosal solution 1.2 ml mucous membrane BID #100 mL 10/27/22 (Lidocaine Viscous) Allergies Allergy/AdvReac Type Severity Reaction Status Date / Time Penicillins [PENICILLINS] Allergy Intermediate RASH Verified 06/06/22 10:03 adalimumab [Humira] Allergy Unknown rash Verified 06/06/22 10:03 methotrexate Allergy Unknown HIVES Verified 06/06/22 10:03 Review of Systems Constitutional: Constitutional: Reports no additional constitutional complaints, Denies chills, Denies fever(s), Reports headache(s) and Denies night sweats Eyes: Eyes: Reports no additional eye complaints, Denies blurry vision, Denies change in vision, Denies diplopia, Denies eye discharge, Denies loss of vision and Denies eye pain ENT: Denies dizziness, Reports headache(s) and Reports sore throat Cardiovascular: Cardiovascular: Reports no additional cardiovascular complaints, Denies chest pain, Denies lightheadedness, Denies Loss of Consciousness and Denies dyspnea Respiratory: Respiratory: Reports no additional respiratory complaints, Reports cough and Denies dyspnea Gastrointestinal: Gastrointestinal: Reports no additional gastrointestinal complaints, Denies abdominal pain, Denies melena, Denies hematochezia, Denies change in bowel habits and Denies change in stool character Genitourinary: Genitourinary: Denies hematuria, Denies urinary frequency, Denies dysuria, Denies urinary incontinence, Denies urinary hesitancy and Denies urinary urgency Musculoskeletal: Musculoskeletal: Reports no additional musculoskeletal complaints, Denies numbness and Denies tingling Neurologic: Denies dizziness, Reports headache(s), Denies loss of vision, Denies numbness and Denies tingling Psychiatric: Psychiatric: Reports no additional psychiatric complaints Endocrine: Endocrine: Reports no additional endocrine complaints Hematologic/Lymphatic: Hematologic/Lymphatic: Reports no additional hematologic/lymphatic complaints Allergic/Immunologic: Allergic/Immunologic: Reports no additional allergic/immunologic complaints [facility] Past Medical History Attestation statement: The following information was validated with the patient. Source: old records reviewed and nursing notes reviewed Medical History Bilateral nephrolithiasis Frequent UTI Rheumatoid arthritis Surgical History H/O lithotripsy H/O tubal ligation History of back surgery Family History Family History Paternal Aunt Breast cancer Father Asthma Diabetes Mother Lupus Sister Lupus Epilepsy Social History Social History Household Members: None Housing: Apartment Are you a primary personal care aid to a significant other at home: No Do you presently have visiting nurse or other home services: No Alcohol intake: never Patient Tobacco Use Status: Never used Tobacco e-Cigarette/Vaping Use: Never Used Advance Directives: No Advance Directives Information Provided: No Physical Exam ED Vital Signs: Vital Signs - 24 hr 10/27/22 10:33 Temperature 98 F Pulse Rate 78 Respiratory Rate 17 Blood Pressure 120/87 Pulse Oximetry 99 Oxygen Delivery Method Room Air BMI result Body Mass Index 25.0 Const General: cooperative, no acute distress, alert and awake Nutritional Appearance: well nourished Orientation/consciousness: patient oriented x3 Limitations: no limitations HENMT Head: Yes normal to inspection and Yes atraumatic Ears: hearing grossly normal bilaterally and external ears normal General nose exam: Normal external nose present, no nasal discharge noted and no epistaxis Face and sinus: Yes normal facial exam, No abrasion and No laceration Mouth: Normal oral and palatal mucosa present, no drooling and no muffled voice Eyes General: appearance normal, both eyes and all related structures Periorbital: periorbital findings normal Eyelids: Yes eyelids normal Conjunctivae: conjunctivae normal Pupils: Equal, round and reactive pupils present EOM: EOMs intact bilaterally Neck Neck: Yes normal visual inspection, Yes full ROM and Yes no lymphadenopathy Chest Chest palpation & inspection: normal inspection of the chest Resp Effort & Inspection: normal respiratory effort and able to speak in complete sentences Auscultation: clear to auscultation bilaterally Cardio Rate: regular rate Rhythm: regular rhythm GI Inspection: Yes normal to inspection Palpation (GI): Soft to palpation, not firm, nontender and no guarding Neuro General: patient oriented x3 and moves all extremities Cranial nerves: Yes Equal, round and reactive pupils present Cognition (Neuro): normal cognition Motor exam (neuro): 5/5 motor strength present throughout Sensory Exam: Normal double simultaneous stimulation for sensation Coordination: [id number] test normal Extrem General: Yes normal to inspection, Yes full ROM and Yes capillary refill normal Psych Appearance: grossly normal Mental Status: mental status grossly normal Affect: normal affect Attitude: cooperative Thought process: Normal thought process present Thought content: Normal thought content present Insight: Good insight present (Psych) Medical Decision Making Medical Decision Making MDM Narrative: Patient is a 47 year old assigned female at with a history of anxiety presenting to the emergency department today with a sore throat, headache, and a cough. Patient's physical exam was unremarkable. Patient's COVID/RSV/Influenza and strep swabs were negative. I explained my physical exam findings as well as all test results to the patient. I answered all questions asked by the patient. I stressed the importance of the patient taking her medication as prescribed. I stressed the importance of the patient following up with her primary care provider. I stressed the importance of the patient returning to the emergency department immediately if her symptoms were to worsen or if she were to develop any dizziness, shortness of breath, difficulty breathing, chest pain, blurry vision, loss of vision, nausea, vomiting, abdominal pain, fever, chills, back pain, or any other complaints. Patient verbalized agreement and understanding with this treatment plan and discharge. Differential Diagnosis Differential Diagnoses: The differential diagnosis associated with the presentation includes pharyngitis, URI, viral illness Lab Data MDM Lab Attestation statement: I reviewed the patient's lab results. Labs: Lab Results 10/27/22 10/27/22 Range/Units 10:37 10:37 Influenza Type A (PCR) NEGATIVE (Negative) Influenza Type B (PCR) NEGATIVE (Negative) RSV RNA Qual (PCR) NEGATIVE (Negative) SARS-CoV-2 RNA (RT-PCR) NEGATIVE (Negative) S. pyogenes GrpA KRAIG Negative (Negative) Discharge Plan Discharge Clinical Impression: Upper respiratory disease, Pharyngitis Patient Disposition: Home, Self-Care Instructions: Pharyngitis (ED) Additional Instructions: Follow up with your primary care provider. Return to the emergency department immediately if your symptoms worsen or if you develop any dizziness, shortness of breath, difficulty breathing, chest pain, blurry vision, loss of vision, nausea, vomiting, abdominal pain, fever, chills, back pain, or any other complaints. Dannie un seguimiento con valladares proveedor de atenci?n primaria. Regrese a la mary de emergencias de inmediato si dilip s?ntomas empeoran o si presenta mareos, dificultad para respirar, dolor de pecho, visi?n borrosa, p?rdida de la visi?n, n?useas, v?mitos, dolor abdominal, fiebre, escalofr?os, dolor de espalda o cualquier otras quejas. Prescriptions: New lidocaine HCl [Lidocaine Viscous] 2 % solution 1.2 ml mucous membrane BID Qty: 100 0RF No Action tramadol 50 mg tablet 50 mg PO Q6H PRN (Reason: pain) Qty: 30 0RF loratadine [Allergy Relief (loratadine)] 10 mg tablet 10 mg PO DAILY PRN (Reason: allergy symptoms) 90 Days Qty: 90 1RF albuterol sulfate 90 mcg/actuation HFA aerosol inhaler 2 puff inhalation Q4-6H Qty: 6.7 1RF Kevzara 200 mg/1.14 mL pen injector 200 mg subcut Q2W Qty: 2.28 3RF sumatriptan succinate [Imitrex] 25 mg tablet See Rx Instructions .ROUTE .COMPLEX Qty: 30 2RF Rx Instructions: take 1 tab at onset of headache; if no relief may repeat 1 tab after at least 2 hrs; max = 4 tabs/24 hr sulfamethoxazole-trimethoprim [Bactrim DS] 800-160 mg tablet 1 tab PO Q12H 2 Days Qty: 4 0RF metronidazole 500 mg tablet 500 mg PO BID 7 Days Qty: 14 0RF ibuprofen 800 mg tablet 800 mg PO Q8H PRN (Reason: pain) Qty: 14 0RF acetaminophen [Tylenol Extra Strength] 500 mg tablet 500 mg PO Q6H PRN (Reason: fever or pain) Qty: 14 0RF cyclobenzaprine 10 mg tablet 10 mg PO TID PRN (Reason: muscle spasm) Qty: 14 0RF ibuprofen 600 mg tablet 600 mg PO Q8H PRN (Reason: pain) Qty: 14 0RF lidocaine 5 % adhesive patch,medicated 1 patch topical DAILY Qty: 15 0RF Rx Instructions: leave on most painful area for up to 12 hrs lidocaine HCl [Aspercreme (lidocaine HCl)] 4 % cream 1 applic topical TID naproxen [EC-Naprosyn] 500 mg tablet,delayed release (DR/EC) 500 mg PO BID PRN diclofenac sodium [Voltaren] 1 % gel 2 g topical QID Qty: 100 2RF Rx Instructions: apply 1 gram to bilateral thumbs twice daily as needed for pain sertraline 50 mg tablet 50 mg PO DAILY buspirone 10 mg tablet 10 mg PO TID sertraline 100 mg tablet 100 mg PO DAILY oxybutynin chloride 10 mg tablet extended release 24hr 10 mg PO DAILY 30 Days Qty: 30 3RF sulfamethoxazole-trimethoprim [Bactrim DS] 800-160 mg tablet 1 tab PO BID Qty: 10 0RF Referrals: Bella Armstrong MD [Primary Care Provider] - Stand Alone Forms: Work/School Release Interventions: ED Discharge Assessment Last Done: 10/27/22 12:24 Discharge Date/Time: 10/27/22 12:24 Print Language: Czech
== END 2022-10-27 12:24 | disposition home or self-care (01) ==
PROVIDERS: Emergency Provider Student in an Organized Health Care Education/Training Program; PCP Internal Medicine
DX: J06.9 Acute upper respiratory infection, unspecified (principal); J02.9 Acute pharyngitis, unspecified; Z20.822 Contact with and (suspected) exposure to COVID-19; Z20.828 Contact with and (suspected) exposure to other viral communicable diseases
CPT/HCPCS: 0241U; 87651; 99282; 99283

== ENCOUNTER 2023-03-08 07:29 | Emergency (ER) | payer OTHER, SELFPAY ==
[2023-03-08 07:31] VITALS: BP 117/73; PULSE 75; RESP 18; TEMP 36.8; O2SAT 97; BMI 26.0
--- NOTE | 2023-03-08 07:42 | ED.EXTPRO ---
HPI - Extremity Problem General Chief complaint: Extremity Injury, Upper Stated complaint: L arm pain/numb fingers Time Seen by Provider: 03/08/23 07:42 Source: patient and family (son) Mode of arrival: ambulatory Limitations: no limitations History of Present Illness HPI Narrative: Patient is a 48-year-old female presenting with 3 days left arm pain radiating from her neck to her elbow. She reports intermittent tingling to all 4 fingers, not her thumb. She denies any fall, injury or other trauma. She has been using 800 mg ibuprofen with little relief of pain. She denies any prior similar episodes. She denies any headaches. She denies any chest pain or shortness of breath. She denies any shock-like sensations. She denies any recent fever, shows, unexplained weight loss, immunosuppression, cancer or IV drug use. She denies any weakness to her arm. She denies any recent illness, travel, history of DVTs. MD Complaint: extremity pain Onset (ago): day(s) Pain Consistency: constant Location: left and upper extremity Quality: burning and constant Radiation: distal Relieving factors: nothing Associated symptoms: other (intermittent tingling to fingers of left hand) Related Data Home Medications Medication Instructions Recorded Confirmed lidocaine HCl 4 % topical cream 1 applic topical TID 07/25/20 12/06/21 (Aspercreme (lidocaine HCl)) naproxen 500 mg tablet,delayed 500 mg PO BID PRN 07/25/20 12/06/21 release (EC-Naprosyn) buspirone 10 mg tablet 10 mg PO TID 07/24/21 12/06/21 sertraline 100 mg tablet 100 mg PO DAILY 07/24/21 12/06/21 sertraline 50 mg tablet 50 mg PO DAILY 07/24/21 12/06/21 Previous Rx's Medication Instructions Recorded diclofenac sodium 1 % topical gel 2 g topical QID #100 grams 11/28/20 (Voltaren) tramadol 50 mg tablet 50 mg PO Q6H PRN pain #30 tabs 02/28/21 loratadine 10 mg tablet (Allergy 10 mg PO DAILY PRN allergy 03/05/21 Relief (loratadine)) symptoms 90 days #90 tabs albuterol sulfate 90 mcg/actuation 2 puff inhalation Q4-6H #6.7 grams 03/21/21 aerosol inhaler sumatriptan succinate 25 mg tablet See Rx Instructions PO .COMPLEX 05/03/21 (Imitrex) #30 tabs oxybutynin chloride 10 mg 10 mg PO DAILY OAB 30 days #30 tabs 07/24/21 tablet,extended release 24 hr sarilumab 200 mg/1.14 mL 200 mg (1.14 mL) subcut Q2W #2.28 11/13/21 subcutaneous pen injector (Kevzara) mL sulfamethoxazole 800 1 tab PO BID #10 tabs 06/03/22 mg-trimethoprim 160 mg tablet (Bactrim DS) acetaminophen 500 mg tablet 500 mg PO Q6H PRN fever or pain 06/05/22 (Tylenol Extra Strength) #14 tabs ibuprofen 800 mg tablet 800 mg PO Q8H PRN pain #14 tabs 06/05/22 metronidazole 500 mg tablet 500 mg PO BID 7 days #14 tabs 06/05/22 sulfamethoxazole 800 1 tab PO Q12H 2 days #4 tabs 06/05/22 mg-trimethoprim 160 mg tablet (Bactrim DS) cyclobenzaprine 10 mg tablet 10 mg PO TID PRN muscle spasm #14 10/14/22 tabs ibuprofen 600 mg tablet 600 mg PO Q8H PRN pain #14 tabs 10/14/22 lidocaine 5 % topical patch 1 patch topical DAILY #15 ea 10/14/22 lidocaine HCl 2 % mucosal solution 1.2 ml mucous membrane BID #100 mL 10/27/22 (Lidocaine Viscous) prednisone 20 mg tablet 40 mg PO DAILY #8 tabs 03/08/23 Allergies Allergy/AdvReac Type Severity Reaction Status Date / Time Penicillins [PENICILLINS] Allergy Intermediate RASH Verified 03/08/23 07:31 adalimumab [Humira] Allergy Unknown rash Verified 03/08/23 07:31 methotrexate Allergy Unknown HIVES Verified 03/08/23 07:31 Review of Systems Review of Systems: As per HPI. Yes all other systems are reviewed and are negative Constitutional: Constitutional: Reports as per HPI COUNTS INCLUDE 234 BEDS AT THE [facility] Past Medical History Medical History Bilateral nephrolithiasis Frequent UTI Rheumatoid arthritis Surgical History H/O lithotripsy H/O tubal ligation History of back surgery Family History Family History Paternal Aunt Breast cancer Father Asthma Diabetes Mother Lupus Sister Lupus Epilepsy Social History Social History Household Members: None Housing: Apartment Are you a primary health care / medical job titles to a significant other at home: No Do you presently have visiting nurse or other home services: No Alcohol intake: never Patient Tobacco Use Status: Never used Tobacco Smoked in Last 30 Days: No e-Cigarette/Vaping Use: Never Used Use of substances other than those prescribed or required for medical reasons: No Advance Directives: No Advance Directives Information Provided: No Physical Exam Vital Signs: Vital Signs: Last Vital Signs Temp 98.3 F 03/08/23 07:31 Pulse 75 03/08/23 07:31 Resp 18 03/08/23 07:31 BP 117/73 03/08/23 07:31 Pulse Ox 97 03/08/23 07:31 O2 Del Method Room Air 03/08/23 07:31 BMI result Body Mass Index 26.0 Vital signs have been reviewed and appear to be correct. Blood pressure normal. Heart rate normal. Respiratory rate normal. Temperature normal. Oxygen saturation normal. Const: General: cooperative, healthy appearing and no acute distress Orientation/consciousness: oriented to person, oriented to place, oriented to time and patient oriented x3 Limitations: no limitations HEENT: Head: Yes normocephalic and Yes atraumatic Ears: external ears normal General nose exam: Normal external nose present Face and sinus: Yes face symmetric Mouth: oropharynx normal and moist mucous membranes Throat: Yes uvula midline Eyes: Pupils: Equal, round and reactive pupils present Neck: Neck: Yes normal visual inspection, Yes full ROM, Yes no meningeal signs and Yes supple Resp: Effort & Inspection: normal respiratory effort and able to speak in complete sentences Auscultation: clear to auscultation bilaterally Cardio: Rate: regular rate Rhythm: regular rhythm Heart sounds: S1 normal heart sound present and S2 normal heart sound present GI: Palpation (GI): Soft to palpation and nontender Auscultation: normoactive bowel sounds : General: Yes no CVA tenderness Back/Spine/Pelvis: Back: no CVA tenderness Cervical Spine: normal cervical lordosis, cervical ROM normal, No cervical spasm, No Cervical spine tenderness and No step off deformity Thoracic/Lumbar Spine: No thoracic spinal tenderness and No lumbar spinal tenderness Skin: General skin exam: elasticity normal and turgor normal Neuro: General: oriented to person, oriented to place, oriented to time, patient oriented x3, moves all extremities, no meningeal signs, no focal motor deficits and CN's II-XI intact bilaterally Cranial nerves: Yes Equal, round and reactive pupils present Cognition (Neuro): normal cognition Extrem: General: Yes full ROM, Yes no pedal edema and Yes no calf tenderness Right upper extremity: normal to inspection and full ROM Left upper extremity: normal to inspection, full ROM, normal capillary refill, no joint enlargement, shoulder/upper arm Details: inspection abnormal and normal ROM, elbow/forearm Details: normal to inspection, tenderness Location: of the proximal forearm, normal ROM and distal pulses intact; no swelling, no unusual warmth and no ecchymosis and hand Details: normal to inspection, normal capillary refill, neuromotor exam normal, neurosensory exam normal and normal ROM of fingers Psych: Mental Status: mental status grossly normal Affect: normal affect Thought process: Normal thought process present Medical Decision Making Medical Decision Making MDM Narrative: Patient is a 48-year-old female presenting with 3 days left arm pain radiating from her neck to her elbow. On exam patient is awake, A+Ox3, in no acute distress, VS WNL, no midline cervical spinal tenderness, crepitus, stepoffs or deformities, full ROM to neck and left arm/elbow/wrist/hand, no obvious swelling, deformities, erythema or ecchymosis, normal neurovascular exam. Mild tenderness to palpation over dorsal aspect of proximal left forearm. Reported history and physical exam findings consistent with cervical radiculopathy. Unlikely entrapment neuropathy, brachial plexus lesion, vertebral fracture/injury, rotator cuff injury or tear, carotid dissection. Will prescribe short course of prednisone and instructed patient to follow up with her PCP within two days. Discussed with patient that she may require physical therapy. Return precautions discussed at bedside. All questions answered and patient agreeable with plan of care. Differential Diagnosis Differential Diagnoses: The differential diagnosis associated with the presentation includes As above. Admission/Observation Consideration of admission/observation: Escalation of care including admission/observation considered Independent Historian Clinical information obtained from an independent historian. History obtained from or confirmed by: Other (son) External Record Review External record reviewed: Inpatient record, Office record and Outpatient record Prescription Management I considered prescription management with: Other (prednisone) Chronic Conditions Patient?s care impacted by: Other (rheumatoid arthritis) Discharge Plan Discharge Clinical Impression: Cervical radiculopathy Patient Disposition: Home, Self-Care Instructions: Cervical Radiculopathy (ED) Additional Instructions: You were evaluated in the emergency department today for left arm pain which is likely related to cervical radiculopathy. You are being prescribed a short course of a steroid called prednisone. You can also apply ice to the affected area for 10-15 minutes at a time several times daily, using caution not apply ice directly to skin. Please follow up with your primary care provider within the next 2 days. Return to the emergency department for any new weakness, worsening pain, numbness, tingling to your left arm, or any other concerning symptoms. Prescriptions: New prednisone 20 mg tablet 40 mg PO DAILY Qty: 8 0RF No Action tramadol 50 mg tablet 50 mg PO Q6H PRN (Reason: pain) Qty: 30 0RF loratadine [Allergy Relief (loratadine)] 10 mg tablet 10 mg PO DAILY PRN (Reason: allergy symptoms) 90 Days Qty: 90 1RF albuterol sulfate 90 mcg/actuation HFA aerosol inhaler 2 puff inhalation Q4-6H Qty: 6.7 1RF Kevzara 200 mg/1.14 mL pen injector 200 mg subcut Q2W Qty: 2.28 3RF sumatriptan succinate [Imitrex] 25 mg tablet See Rx Instructions .ROUTE .COMPLEX Qty: 30 2RF Rx Instructions: take 1 tab at onset of headache; if no relief may repeat 1 tab after at least 2 hrs; max = 4 tabs/24 hr lidocaine HCl [Lidocaine Viscous] 2 % solution 1.2 ml mucous membrane BID Qty: 100 0RF sulfamethoxazole-trimethoprim [Bactrim DS] 800-160 mg tablet 1 tab PO Q12H 2 Days Qty: 4 0RF metronidazole 500 mg tablet 500 mg PO BID 7 Days Qty: 14 0RF ibuprofen 800 mg tablet 800 mg PO Q8H PRN (Reason: pain) Qty: 14 0RF acetaminophen [Tylenol Extra Strength] 500 mg tablet 500 mg PO Q6H PRN (Reason: fever or pain) Qty: 14 0RF cyclobenzaprine 10 mg tablet 10 mg PO TID PRN (Reason: muscle spasm) Qty: 14 0RF ibuprofen 600 mg tablet 600 mg PO Q8H PRN (Reason: pain) Qty: 14 0RF lidocaine 5 % adhesive patch,medicated 1 patch topical DAILY Qty: 15 0RF Rx Instructions: leave on most painful area for up to 12 hrs lidocaine HCl [Aspercreme (lidocaine HCl)] 4 % cream 1 applic topical TID naproxen [EC-Naprosyn] 500 mg tablet,delayed release (DR/EC) 500 mg PO BID PRN diclofenac sodium [Voltaren] 1 % gel 2 g topical QID Qty: 100 2RF Rx Instructions: apply 1 gram to bilateral thumbs twice daily as needed for pain sertraline 50 mg tablet 50 mg PO DAILY buspirone 10 mg tablet 10 mg PO TID sertraline 100 mg tablet 100 mg PO DAILY oxybutynin chloride 10 mg tablet extended release 24hr 10 mg PO DAILY 30 Days Qty: 30 3RF sulfamethoxazole-trimethoprim [Bactrim DS] 800-160 mg tablet 1 tab PO BID Qty: 10 0RF Print Language: Barbadian
--- NOTE | 2023-03-08 07:46 | PC.NURSE ---
pt c/o L elbow pain accompanied by numbness and tingling in her fingers. she reports that she has arthritis and thinks it may be related. denies injury. pt able to move extremity appropriately, able to feel when touched. no other complaints.
[2023-03-08] MEDS: predniSONE 20 MG TABLET 40 MG PO (08:28)
[2023-03-08 08:30] VITALS: BP 125/81; PULSE 58; O2SAT 98
== END 2023-03-08 08:48 | disposition home or self-care (01) ==
PROVIDERS: Emergency Provider Emergency Medicine Emergency Medical Services; PCP Internal Medicine
DX: M54.12 Radiculopathy, cervical region (principal); M54.2 Cervicalgia; M79.602 Pain in left arm; Z79.899 Other long term (current) drug therapy
CPT/HCPCS: 99283; 99284

== ENCOUNTER 2023-03-12 09:53 | Outpatient (REF) | payer OTHER, SELFPAY ==
[2023-03-12 16:17] LABS: CT PCR NOT DETECTED (Not Detect.); NG PCR NOT DETECTED (Not Detect.)
[2023-03-13 10:54] LABS: BV Int Neg Control Negative (Negative); BV Int Pos Control Positive (Positive)
== END 2023-03-12 09:54 | disposition home or self-care (01) ==
LOC: HO.LAB 09:53
PROVIDERS: PCP Internal Medicine; Visit Provider Advanced Practice Midwife
DX: N89.8 Other specified noninflammatory disorders of vagina (principal); N92.6 Irregular menstruation, unspecified; Z20.2 Contact with and (suspected) exposure to infections with a predominantly sexual mode of transmission; N85.2 Hypertrophy of uterus; R10.2 Pelvic and perineal pain; N92.0 Excessive and frequent menstruation with regular cycle; N94.6 Dysmenorrhea, unspecified; N39.3 Stress incontinence (female) (male); Z86.018 Personal history of other benign neoplasm
CPT/HCPCS: 0353U; 87480; 87510; 87660

== ENCOUNTER 2023-03-12 10:28 | Outpatient (REF) | payer OTHER, SELFPAY ==
[2023-03-18 21:14] LABS: HPV mRNA E6/E7 rflx Not Detected (Not Detected)
== END 2023-03-12 10:29 | disposition home or self-care (01) ==
LOC: HO.LNP 10:28
PROVIDERS: Visit Provider Advanced Practice Midwife
DX: Z01.419 Encounter for gynecological examination (general) (routine) without abnormal findings (principal); Z11.51 Encounter for screening for human papillomavirus (HPV); N92.6 Irregular menstruation, unspecified
CPT/HCPCS: 87624; 88142

== ENCOUNTER → 2023-03-13 07:27 | Outpatient (BNVA) | payer OTHER, SELFPAY | PROVIDERS: PCP Internal Medicine; Visit Provider Nurse Practitioner Family | DX: M05.9 Rheumatoid arthritis with rheumatoid factor, unspecified (principal); M77.12 Lateral epicondylitis, left elbow | CPT/HCPCS: 99212 ==

== ENCOUNTER 2023-03-13 08:36 | Outpatient (REF) | payer OTHER, SELFPAY ==
[2023-03-13 10:54] LABS: MANUAL DIFF FLAG NO
[2023-03-13 11:02] LABS: Basophils Percent Auto 0.3 % (0-2); Eosinophils Absolute Auto 0.1 X10*3/uL (0.0-0.4); Eosinophils Percent Auto 0.9 % (0-4); Hematocrit 37.4 % (37.0-47.0); Hemoglobin 11.6 g/dl (12.0-16.0); Imm Gran Abs Auto 0.03 X10*3/uL (0.00-0.03); Imm Gran Pct Auto 0.5 % (0.0-0.4); Lymphocytes Absolute Auto 1.4 X10*3/uL (1.2-4.9); Lymphocytes Percent Auto 22.3 % (20-40); Mean Corpuscular Hemoglobin 26.4 pg (27.0-33.0); Mean Corpuscular Volume 85.2 fL (80.0-98.0); Mean Platelet Volume 9.9 fL (9.4-12.3); Monocytes Absolute Auto 0.5 X10*3/uL (0.1-1.2); Monocytes Percent Auto 8.2 % (2-11); Neutrophils Absolute Auto 4.4 x10*3/uL (2.0-8.3); Neutrophils Percent Auto 67.8 % (45-73); Platelet Count 353 X10*3/uL (160-400); Red Blood Count 4.39 X10*6/uL (4.20-5.50); Red Cell Distribution Width 13.6 % (11.0-16.0); White Blood Count 6.5 X10*3/uL (4.8-10.8)
[2023-03-13 11:27] LABS: Alanine Aminotransferase 14 U/L (0-31); Albumin Level 3.9 g/dL (3.5-5.0); Alkaline Phosphatase 60 U/L (39-117); Anion Gap 12 (12-20); Aspartate Amino Transferase 14 U/L (5-31); Bilirubin Total 0.6 mg/dL (0.0-1.0); Blood Urea Nitrogen 9 mg/dL (9-16); C Reactive Protein 0.15 mg/dL (< or = 0.50); Carbon Dioxide 26 mmol/L (22-29); Chloride 105 mmol/L (96-108); Cholesterol 260 mg/dL; Estimated Glomerular Filt Rate > 60; Glucose Random 92 mg/dL (60-115); HDL Cholesterol 60 mg/dL; LDL Cholesterol Calculated 179 mg/dl; Potassium 4.2 mmol/L (3.3-5.1); Sodium 139 mmol/L (135-145); Total Protein 7.2 g/dL (6.5-8.0); Triglycerides 108 mg/dL
[2023-03-13 11:49] LABS: Erythrocyte Sedimentation Rate 48 MM/HR (0-20)
[2023-03-13 13:30] LABS: Reflex LDLD? No
== END 2023-03-13 08:37 | disposition home or self-care (01) ==
LOC: HO.10HDL 08:36
PROVIDERS: Visit Provider Nurse Practitioner Family
DX: M05.9 Rheumatoid arthritis with rheumatoid factor, unspecified (principal); M77.12 Lateral epicondylitis, left elbow; M79.7 Fibromyalgia; Z79.899 Other long term (current) drug therapy
CPT/HCPCS: 36415; 80053; 80061; 85025; 85652; 86140

== ENCOUNTER 2023-03-17 14:20 | Outpatient (REF) | payer OTHER, SELFPAY ==
[2023-03-17 14:50] LABS: MANUAL DIFF FLAG NO
[2023-03-17 15:28] LABS: Hematocrit 38.6 % (37.0-47.0); Hemoglobin 12.2 g/dl (12.0-16.0); Mean Corpuscular HGB Conc 31.6 g/dl (31.0-35.0); Mean Corpuscular Hemoglobin 27.5 pg (27.0-33.0); Mean Corpuscular Volume 87.1 fL (80.0-98.0); Mean Platelet Volume 9.9 fL (9.4-12.3); Platelet Count 379 X10*3/uL (160-400); Red Blood Count 4.43 X10*6/uL (4.20-5.50); Red Cell Distribution Width 13.6 % (11.0-16.0); White Blood Count 7.5 X10*3/uL (4.8-10.8)
[2023-03-17 15:30] LABS: Basophils Percent Auto 0.5 % (0-2); Eosinophils Absolute Auto 0.2 X10*3/uL (0.0-0.4); Eosinophils Percent Auto 2.9 % (0-4); Hematocrit 39.3 % (37.0-47.0); Hemoglobin 12.2 g/dl (12.0-16.0); Imm Gran Abs Auto 0.03 X10*3/uL (0.00-0.03); Imm Gran Pct Auto 0.4 % (0.0-0.4); Lymphocytes Absolute Auto 1.8 X10*3/uL (1.2-4.9); Lymphocytes Percent Auto 24.5 % (20-40); Mean Corpuscular Hemoglobin 26.8 pg (27.0-33.0); Mean Corpuscular Volume 86.2 fL (80.0-98.0); Mean Platelet Volume 9.5 fL (9.4-12.3); Monocytes Absolute Auto 0.6 X10*3/uL (0.1-1.2); Neutrophils Absolute Auto 4.8 x10*3/uL (2.0-8.3); Neutrophils Percent Auto 63.7 % (45-73); Platelet Count 380 X10*3/uL (160-400); Red Blood Count 4.56 X10*6/uL (4.20-5.50); Red Cell Distribution Width 13.5 % (11.0-16.0); White Blood Count 7.5 X10*3/uL (4.8-10.8)
[2023-03-17 16:09] LABS: Erythrocyte Sedimentation Rate 34 MM/HR (0-20)
[2023-03-17 16:12] LABS: Iron 34 mcg/dL (30-160); Percent Iron Saturation 8 % (15-50); Total Iron Binding Capacity 401 mcg/dL (228-428); Unsaturated Iron Binding 367 ug/dL
[2023-03-17 16:14] LABS: Alanine Aminotransferase 15 U/L (0-31); Aspartate Amino Transferase 17 U/L (5-31); Estimated Glomerular Filt Rate > 60
[2023-03-17 16:34] LABS: Vitamin D 25-OH Total 19.2 ng/mL (>30)
[2023-03-17 16:42] LABS: Folate 16.7 ng/mL (> or = 4.0); Thyroid Stimulating Hormone 0.72 uIU/mL (0.32-4.0); Vitamin B12 325 pg/mL (200-900)
[2023-03-18 01:49] LABS: Syphilis Screen Nonreactive (Nonreactive)
[2023-03-18 07:53] LABS: HBc Num1 0.07 S/CO (0.00-0.79); HIV AB/AG Nonreactive (Nonreactive); HIV Num 1 0.07 S/CO (0.00-0.99); Hepatitis B Core Antibody Nonreactive (Nonreactive); ~HepC Num1 0.13 S/CO (0.00-0.79); ~Hepatitis C Antibody Nonreactive (Nonreactive)
[2023-03-18 07:54] LABS: HBS Num1 0.25 mIU/mL (0-7.99); HBc Num1 0.07 S/CO (0.00-0.79); HBsAGNum1 0.31 S/CO (0.00-0.99); Hepatitis B Core Antibody Nonreactive (Nonreactive); Hepatitis B Surface Antigen Negative (Negative); ~HepC Num1 0.13 S/CO (0.00-0.79); ~Hepatitis A Antibody IgM Nonreactive (Nonreactive); ~Hepatitis B Surface Antibody NONREACTIVE (Nonreactive); ~Hepatitis C Antibody Nonreactive (Nonreactive)
[2023-03-19 17:18] LABS: TS Negative Control Passed; TS Panel A 0; TS Panel B 0; TS Positive Control Passed; TSpotTB Negative (Negative)
== END 2023-03-17 14:21 | disposition home or self-care (01) ==
LOC: HO.LAB 14:20
PROVIDERS: Advanced Practice Midwife; Nurse Practitioner Family; PCP Internal Medicine; Visit Provider Nurse Practitioner Family
DX: N92.1 Excessive and frequent menstruation with irregular cycle (principal); R53.83 Other fatigue; M05.9 Rheumatoid arthritis with rheumatoid factor, unspecified; Z20.2 Contact with and (suspected) exposure to infections with a predominantly sexual mode of transmission; Z79.899 Other long term (current) drug therapy; Z11.1 Encounter for screening for respiratory tuberculosis
CPT/HCPCS: 36415; 82306; 82565; 82607; 82746; 83540; 84443; 84450; 84460; 85025; 85027; 85652; 86140; 86481; 86704; 86706; 86709; 86780; 86803; 87340; 87389

== ENCOUNTER 2023-03-19 15:47 | Outpatient (REF) | payer OTHER, SELFPAY ==
--- NOTE | ~2023-03-19 | US_ITS ---
EXAMINATION: US PELVIS CLINICAL INFORMATION: Fibroid COMPARISON: Previous CT of the abdomen and pelvis most recent September 2022 and pelvic ultrasound November 2020 TECHNIQUE: Ultrasound of the pelvis is performed using both transabdominal and transvaginal transducers along with Doppler. Transvaginal imaging is performed due to inadequate visualization transabdominally. FINDINGS: The uterus is anteverted and measures 10.6 x 5.8 x 7 cm in dimension. Uterine echotexture is heterogeneous. There is a 1.7 x 1.5 x 1.7 cm intramural lesion in the high right uterine body probably representing a fibroid. There is a 1.8 x 1.8 x 2.1 cm hypoechoic lesion in the anterior uterine fundus probably representing a fibroid. Endometrial thickness is normal measuring 0.5 cm. There are nabothian cysts in the cervix. The ovaries are normal. The right ovary measures 1.7 x 1 x 1.3 cm and the left ovary measures 2.4 x 1 x 2.4 cm. There is no fluid in the pelvis. US/US pelvic and transvaginal IMPRESSION: Small uterine fibroids largest measuring 1.8 x 1.8 x 2.1 cm in the uterine fundus.
== END 2023-03-19 15:48 | disposition home or self-care (01) ==
LOC: HO.US 15:47
PROVIDERS: PCP Internal Medicine; Visit Provider Advanced Practice Midwife
DX: D21.9 Benign neoplasm of connective and other soft tissue, unspecified (principal); N85.2 Hypertrophy of uterus; R10.2 Pelvic and perineal pain
CPT/HCPCS: 76830; 76856

== ENCOUNTER → 2023-04-15 11:01 | Outpatient (BNVA) | payer OTHER, SELFPAY | PROVIDERS: Visit Provider Urology | DX: R31.29 Other microscopic hematuria (principal); N39.3 Stress incontinence (female) (male); R35.1 Nocturia; R33.9 Retention of urine, unspecified; Z87.442 Personal history of urinary calculi | CPT/HCPCS: 51798; 99212 ==

== ENCOUNTER 2023-05-05 08:47 | Outpatient (REF) | payer OTHER, SELFPAY | END 2023-05-05 08:48 | disposition home or self-care (01) | LOC: HO.LNP 08:47 | PROVIDERS: PCP Nurse Practitioner Family; Visit Provider Advanced Practice Midwife | DX: R87.618 Other abnormal cytological findings on specimens from cervix uteri (principal); Z71.2 Person consulting for explanation of examination or test findings | CPT/HCPCS: 58100; 81025; 88305 ==

== ENCOUNTER 2023-05-05 08:47 | Outpatient (AMB) | payer OTHER, SELFPAY ==
--- NOTE | 2023-05-05 09:27 | MHC.OFFVIS ---
Intake Vital Signs 05/05/23 09:30 Height 5 ft 6 in Weight 168 lb BMI 27.1 BP 110/70 Intake Visit Reasons: US Follow up/EMB Intake Note: The patient agreed to use of a manager medical device during this encounter. Scribed for ROXANNE Green by Isa Allen manager medical device, on 05/05/2023 at 9:48 am EST. 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: Yes High School Music Director Language: Employment Evaluator/Case Manager Name: Rosy Dinero PADMINI Information Interpreted: non-clinical & clinical Liquid Sugar Fortifier: Liquid Sugar Fortifier Present (Rosy) Allergies Penicillins [PENICILLINS] Allergy (Intermediate, Verified 05/05/23 09:33) RASH adalimumab [Humira] Allergy (Unknown, Verified 05/05/23 09:33) rash methotrexate Allergy (Unknown, Verified 05/05/23 09:33) HIVES Is last menstrual period known: Yes Last menstrual period: 04/13/23 Post menopausal: No HPI HPI Comments History of Present Illness Details She is here to discuss US results regarding fibroid, and an EMB for endometrial cells on the pap smear. Regular menses, no unscheduled bleeding. See procedure note. [facility] Medical History Abnormal Pap smear of cervix Bilateral nephrolithiasis Dysmenorrhea Enlarged uterus Frequent UTI Heavy menstrual bleeding History of uterine fibroid Irregular menses Pelvic pain Rheumatoid arthritis Surgical History H/O lithotripsy H/O tubal ligation History of back surgery Family History Paternal Aunt Breast cancer Father Asthma Diabetes Mother Lupus Sister Lupus Epilepsy Social History Household Members: None Both parents involved: No Caregiver staying overnight: No Housing: Apartment Are you a primary care services manager to a significant other at home: No Do you presently have visiting nurse or other home services: No 75 years or older and lives alone: No Alcohol intake: never Patient Tobacco Use Status: Never used Tobacco e-Cigarette/Vaping Use: Never Used Cognitive needs: No Hearing needs: No Vision needs: No Female Reproductive History Menstrual Age of Menarche: 9 Date of last menstrual period: 04/13/23 control method: permanent sterilization Date of last pap smear: 03/13/23 (Endometrial cells present) Physical Exam Vital Signs: Last Vital Signs BP 110/70 05/05/23 09:30 BMI result Body Mass Index 27.1 Const General: cooperative, healthy appearing, comfortable, no acute distress, well developed, alert and awake Other: General: Yes bladder normal to palpation External Female Exam: normal external appearance and normal appearance of the urethra Speculum Exam - Vagina: normal appearance of the vagina, normal palpation and normal vaginal discharge Speculum Exam - Cervix: normal appearance of the cervix and normal palpation Bimanual exam- vagina & uterus: normal bimanual exam, normal palpation, bladder normal to palpation and normal palpation Bimanual Exam- Adnexa, other: normal adnexae and no masses Office Procedures Endometrial Biopsy Details: Endometrial Biopsy HPI The patient is here today for an endometrial biopsy for Endometrial cells on prior pap smear to rule out any pathology including atypical, hyperplasia or cancer cells of the uterus. She was counseled regarding anticipatory guidance for the procedure including the risks for pain, infection, bleeding, perforation, potential injury to the tissues may include the cervix, uterus, tubes, bladder and bowels. These injuries may include further treatment and evaluation including surgery, blood transfusions, antibiotics, hospitalizations and anesthesia. Permanent injury and scarring can occur. She was consented for the procedure, and the consent forms were signed. She is agreeable to have the procedure today. All questions were answered. A urine test was obtained and was negative. She denies any risks to . Endometrial Biopsy Procedure The patient was placed in the dorsal lithotomy position and a sterile speculum inserted. Using aseptic technique for the procedure. The cervix was cleansed with Betadine x 3 swabs A single toothed tenaculum was placed on the cervix for stabilization and the uterus was sounded to 10 cm with a 4mm pipelle for 4 passes. Minimal bleeding was observed. The patient tolerated the procedure well and was in good condition when leaving the department. The tissue sample was placed in formalin in a patient labeled container by staff assisting and sent to the pathology department for processing and interpretation. The patient tolerated the procedure well. Endometrial Biopsy Post Procedure Care Nothing in the vagina including: tampons, douching or sex for 3 days. There may be some post procedure bleeding for several days, this bleeding is usually light and may turn to a light brown or pink color. Mild cramps may occur. You may take an over the counter mild analgesic such as Tylenol or Advil (if no allergies) per the manufacturers recommendation on dosing, frequency, and follow the directions completely. Call the office if any: SOB, fatigue, lightheadedness/dizziness, abd pain (worse than cramping), bloating or abd distention, foul odor or abnormal discharge or heavy vaginal bleeding. Scheduled for a follow up visit for results via tele-visit when the results are completed in a few weeks. [id number] Biopsy Results AMB Test Urine AMB Test Urine Negative Last Edit by PADMINI Gramajo on 05/05/23 09:41 Results Reviewed Results Reviewed: Laboratory Last Values Tst Clinic Negative 05/05/23 09:40 EXAMINATION:? US PELVIS CLINICAL INFORMATION:? Fibroid COMPARISON: Previous CT of the abdomen and pelvis most recent September 2022 and pelvic ultrasound November 2020 TECHNIQUE: Ultrasound of the pelvis is performed using both transabdominal and transvaginal transducers along with Doppler. Transvaginal imaging is performed due to inadequate visualization transabdominally. FINDINGS: The uterus is anteverted and measures 10.6 x 5.8 x 7 cm in dimension. Uterine echotexture is heterogeneous. There is a 1.7 x 1.5 x 1.7 cm intramural lesion in the high right uterine body probably representing a fibroid. There is a 1.8 x 1.8 x 2.1 cm hypoechoic lesion in the anterior uterine fundus probably representing a fibroid. Endometrial thickness is normal measuring 0.5 cm. There are nabothian cysts in the cervix. The ovaries are normal. The right ovary measures 1.7 x 1 x 1.3 cm and the left ovary measures 2.4 x 1 x 2.4 cm. There is no fluid in the pelvis. US/US pelvic and transvaginal IMPRESSION: Small uterine fibroids largest measuring 1.8 x 1.8 x 2.1 cm in the uterine fundus. Assessment & Plan Assessment & Plan (1) Encounter to discuss test results: Code(s): Z71.2 - Person consulting for explanation of examination or test findings Plan: Discussed: US findings of: Small uterine fibroids largest measuring 1.8 x 1.8 x 2.1 cm in the uterine fundus. US findings of fibroids/Multiple uterine myomas. She was informed that myomas are benign and are stable in size. Small risks of leiomyosarcoma, advised to call for any abnormal bleeding, pelvic pain, increased abdominal pressure or bloating for sooner evaluation. US yearly unless otherwise indicated. All of her questions and concerns were addressed to the best of my ability and shared decision making. She is agreeable to plan of care. See procedure note. Orders: Orders AMB HCG Urine Test Today Z32.02 - Encounter for test, result negative Surgical Today R87.618 - Other abnormal cytological findings on specimens from cervix uteri Coding Level of Care Code Procedure Only Diagnoses Encounter to discuss test results Z71.2 CPT Codes Endometrial Biopsy - CPT: 27714-[id number] Biopsy ([id number])
[2023-05-05 09:30] VITALS: BP 110/70; BMI 27.1
== END 2023-05-05 10:17 | disposition home or self-care (01) ==
LOC: HO.HWS 08:47
PROVIDERS: PCP Nurse Practitioner Family; Visit Provider Advanced Practice Midwife
DX: R87.618 Other abnormal cytological findings on specimens from cervix uteri (principal); Z32.02 Encounter for pregnancy test, result negative
CPT/HCPCS: 58100

== ENCOUNTER 2023-05-06 10:08 | Outpatient (AMB) | payer OTHER, SELFPAY ==
--- NOTE | 2023-05-06 08:30 | MHC.OFFVIS ---
Intake Intake Visit Reasons: 1m/cysto Intake Note: Patient presents today for a CYSTOSCOPY Procedure: Meds: Naproxen Allergies to Antibiotic: Penicillin Blood Thinner: None Urinalysis test clear for Cysto Disposible Uro-G Cystoscope Cannula: Lot: [id number] Exp: 04/03/2025 Primer And Powder Canning Leader Required: Yes Primer And Powder Canning Leader Language: Dress Operator Name: Ki Nolasco, RMA/VICKY SPANI Information Interpreted: clinical only Salad Bar Clerk: Salad Bar Clerk Present Accompanied by: Self / Same As Patient Allergies Penicillins [PENICILLINS] Allergy (Intermediate, Verified 05/06/23 10:45) RASH adalimumab [Humira] Allergy (Unknown, Verified 05/06/23 10:45) rash methotrexate Allergy (Unknown, Verified 05/06/23 10:45) HIVES Medication List - Last Reconciled 05/06/23 by Sergio Kapoor MD acetaminophen (Tylenol Extra Strength) 500 mg PO Q6H PRN albuterol sulfate 90 mcg/actuation (Ventolin HFA) 2 puffs inhalation Q4-6H PRN buspirone 10 mg PO TID cholecalciferol (vitamin D3) 50 mcg PO DAILY cyclobenzaprine 10 mg PO TID PRN loratadine (Allergy Relief (loratadine)) 10 mg PO DAILY PRN 90 days mirabegron ER (Myrbetriq) 50 mg PO DAILY naproxen 500 mg PO BID sertraline 50 mg PO DAILY sumatriptan succinate (Imitrex) take 1 tab at onset of headache; if no relief may repeat 1 tab after at least 2 hrs; max = 4 tabs/24 hr HPI HPI Comments History of Present Illness Details Chica is a 48-year-old female who presents to the clinic today for office cystoscopy. LV-04/15/23? She has been seen in urology office in the past for LUTS urinary incontinence associated with cough laughing. She also had symptoms of nocturia. She had kidney stones about 3 years ago and had a laser procedure done to break them up. She had nocturia episodes 2 times per night. I reviewed the recent imaging of the CAT scan done in September 2022, there are no kidney stones noted on that imaging. The urinalysis was notable for microscopic hematuria and I have discussed further evaluation with office cystoscopy. 05/06/23? Chica is a 48-year-old female who presents to the clinic today for office cystoscopy. The patient is a Tamaz[place] speaking female. Certified product safety officer was present during the visit. She has complaints of stress urinary incontinence. She has been doing the kegel exercises. The patient stated she was prescribed a medication in the past but it didn't help. We are going to try a different medication to see if it makes a difference. The patient was straight cathed for 15 mL residual. Evaluation today? UA 05/06/23 -- Blood: 2+. Leukocytes: negative. Cystoscopy findings -- Prominent vasculature but no suspicious bladder lesions. During the filling of the bladder, the patient stated she felt she was at maximum capacity at 300 mL. She did have minimal leakage with cough, on pelvic exam, no cough with valsalva. There was also blood in the vaginal vault. (The patient states she had a cervical biopsy yesterday.) Plan: Prescribed Myrbetriq 50 mg daily. Continue doing the kegel exercises. Follow up in 6 weeks to see if it makes any difference. [facility], LAT[facility] Medical History Abnormal Pap smear of cervix Bilateral nephrolithiasis Dysmenorrhea Enlarged uterus Frequent UTI Heavy menstrual bleeding History of uterine fibroid Irregular menses Pelvic pain Rheumatoid arthritis Surgical History H/O lithotripsy H/O tubal ligation History of back surgery Family History Paternal Aunt Breast cancer Father Asthma Diabetes Mother Lupus Sister Lupus Epilepsy Social History Household Members: None Both parents involved: No Caregiver staying overnight: No Housing: Apartment Are you a primary child care nurse to a significant other at home: No Do you presently have visiting nurse or other home services: No 75 years or older and lives alone: No Alcohol intake: never Patient Tobacco Use Status: Never used Tobacco e-Cigarette/Vaping Use: Never Used Cognitive needs: No Hearing needs: No Vision needs: No Female Reproductive History Menstrual Age of Menarche: 9 Review of Systems Const All systems reviewed & are unremarkable except as noted in HPI and below Reports no additional complaints Eyes Reports no additional complaints ENT Reports no additional complaints Card Denies dyspnea Resp Denies cough and Denies dyspnea GI Reports no additional complaints Reports no additional complaints Musc Reports no additional complaints Skin/Breast Denies rash and Denies unusual bruising Neuro Reports no additional complaints Psych Reports no additional complaints Endo Reports no additional complaints Indra/Lymph Reports no additional complaints Aller/Immun Reports no additional complaints Physical Exam Const General: cooperative, healthy appearing and no acute distress Orientation/consciousness: patient oriented x3 HEENT Head: Yes normal to inspection, Yes normocephalic and Yes atraumatic Eyes Conjunctivae: conjunctivae normal Neck Neck: Yes normal visual inspection and Yes trachea midline Chest Chest palpation & inspection: normal inspection of the chest Resp Effort & Inspection: normal respiratory effort Cardio Rate: regular rate GI Inspection: Yes normal to inspection Palpation (GI): Soft to palpation General: No no CVA tenderness External Female Exam: normal external appearance Back/Spine/Pelvis Back: No no CVA tenderness Skin General skin exam: no rashes or lesions noted Neuro General: patient oriented x3 Extrem General: No edema Psych Appearance: grossly normal Office Procedures Cystoscopy Consent Discussed risk and benefit or proposed procedure with the patient. Information consent for procedure given to the patient. Discussed technical aspects, risks, benefits and alternatives in full. Addressed all of the patient's questions and concerns regarding the procedure. The patient demonstrated knowledge and understanding. They wish to proceed with this procedure. Preparation The patient was prepped in the usual manner. A cutting machine fixer was present and in the room. Genitalia was prepped with betadine solution in a sterile manner. Lidocaine Jelly 2% was placed into the urethra and 16Fr flexible Olympus cystoscope was inserted into the meatus after adequate lubrication. Procedure Time out per protocol performed. Bladder Inspection Bladder Inspection: The bladder was inspected in its entirety with utilization retroflexion displaying: Tumor(s): none Trabeculation: none Mucosal Erthema: prominent vascular markings Orifices: normal shape and position Urethra: normal Cystoscopy findings: WNL, no suspicious bladder lesions visualized [id number] Procedure code (CPT) selection complete Office Meds lidocaine HCl Performing Provider: Sergio Kapoor MD Documented (not given) by: Sergio Kapoor MD on 05/06/23 11:12 Dose Route Admin Location Lot Number Expiration Date NDC Netsuite Developer 10 mL intra-urethral naproxen Performing Provider: Sergio Kapoor MD Documented (not given) by: Sergio Kapoor MD on 05/06/23 11:12 Dose Route Admin Location Lot Number Expiration Date NDC Netsuite Developer 500 mg PO ciprofloxacin HCl Performing Provider: Sergio Kapoor MD Documented (not given) by: Sergio Kapoor MD on 05/06/23 11:12 Dose Route Admin Location Lot Number Expiration Date NDC Netsuite Developer 500 mg PO Results AMB Urinalysis, Automated UA Leukoctes 0 Cleo/uL Last Edit by Ki Nolasco Margie on 05/06/23 10:43 UA Nitrite Negative Last Edit by Ki Nolasco [facility] on 05/06/23 10:43 UA Urobilinogen 0.2 mg/dL Last Edit by Ki Nolasco [facility] on 05/06/23 10:43 UA Protein 0 mg/dL Last Edit by Ki Nolasco [facility] on 05/06/23 10:43 UA pH 6.0 Last Edit by Ki Nolasco [facility] on 05/06/23 10:43 UA Blood 80 Willie/uL Last Edit by Ki Nolasco [facility] on 05/06/23 10:43 2+ Ki Nolasco 05/06/23 10:43 UA Specific [place] 1.025 Last Edit by Ki Nolasco [facility] on 05/06/23 10:43 UA Ketone Negative Last Edit by Ki Nolasco [facility] on 05/06/23 10:43 UA Bilirubin 0 mg/dL Last Edit by Ki Nolasco [facility] on 05/06/23 10:43 UA Glucose 0 mg/dL Last Edit by Ki Nolasco [facility] on 05/06/23 10:43 Results Reviewed Results Reviewed: Laboratory Last Values Urine pH (Auto) 6.0 05/06/23 10:41 Specific [place] (Auto) 1.025 05/06/23 10:41 Urine Protein (Auto) 0 mg/dL 05/06/23 10:41 Glucose (UA)(Auto) 0 mg/dL 05/06/23 10:41 Urine Ketones (Auto) Negative 05/06/23 10:41 Urine Blood (Auto) 80 Willie/uL 05/06/23 10:41 Urine Nitrite (Auto) Negative 05/06/23 10:41 Urine Bilirubin (Auto) 0 mg/dL 05/06/23 10:41 Urine Urobilinogen (Auto) 0.2 mg/dL 05/06/23 10:41 Leukocyte Esterase (Auto) 0 Cleo/uL 05/06/23 10:41 Assessment & Plan Assessment & Plan (1) Microscopic hematuria: Code(s): R31.29 - Other microscopic hematuria (2) Urinary incontinence: Code(s): R32 - Unspecified urinary incontinence (3) Urinary urgency: Code(s): R39.15 - Urgency of urination Plan I wanted to drain her bladder to make sure she is emptying the bladder completely before the cystoscopy. We are going to try a different medication to see if it makes a difference. Prescribed Myrbetriq 50 mg daily. Continue doing the kegel exercises. Follow up in 6 weeks to see if it makes any difference. Orders: Orders AMB Cystoscopy 05/06/23 R31.29 - Other microscopic hematuria AMB Urinalysis Automated 05/06/23 Z13.9 - Encounter for screening, unspecified Medications: New ciprofloxacin HCl 500 mg PO ONCE 1 tab 0RF R31.29 - Other microscopic hematuria naproxen 500 mg PO ONCE 1 tab 0RF R31.29 - Other microscopic hematuria lidocaine HCl 2% 10 mL intra-urethral ONCE 10 mL 0RF R31.29 - Other microscopic hematuria mirabegron ER (Myrbetriq) 50 mg PO DAILY 90 tabs 0RF Patient Instructions: The patient had an opportunity to ask questions regarding treatment plan. All questions were answered. Imaging, Laboratory studies and physical exam results were discussed and reviewed in detail. No major barriers to understanding were identified. The patient expressed understanding and agreement with the above treatment plan. The patient is aware they should contact our office by phone for worsening of their current condition or the appearance of new symptoms. Compliance is encouraged with any medications and followup testing that is ordered. It is a privilege to be allowed the opportunity to participate in the urologic care of your patient. If you have any questions or concerns regarding treatment for the above conditions please do not hesitate to contact me. The office telephone contact is [phone]. This note is constructed in part using voice recognition software. While every effort has been made to ensure accuracy counterperson errors may have been included. Yours sincerely, Sergio Kapoor MD Coding Level of Care Code Est Pt Level 3 (92225) Diagnoses Microscopic hematuria R31.29 Urinary incontinence R32 Urinary urgency R39.15 CPT Codes Cystoscopy - CPT: 65055-[id number] ([id number])
== END 2023-05-06 11:08 | disposition home or self-care (01) ==
PROVIDERS: PCP Nurse Practitioner Family; Visit Provider Urology
DX: R31.29 Other microscopic hematuria (principal); R32 Unspecified urinary incontinence; R39.15 Urgency of urination
CPT/HCPCS: 52000

== ENCOUNTER → 2023-05-06 10:08 | Outpatient (BNVA) | payer OTHER, SELFPAY | PROVIDERS: PCP Nurse Practitioner Family; Visit Provider Urology | DX: R31.29 Other microscopic hematuria (principal); R35.1 Nocturia; R32 Unspecified urinary incontinence; R39.15 Urgency of urination | CPT/HCPCS: 52000 ==

== ENCOUNTER 2023-05-08 09:06 | Outpatient (AMB) | payer OTHER, SELFPAY ==
--- NOTE | 2023-05-08 09:07 | MHC.OFFVIS ---
Intake Intake Visit Reasons: TV EMB Results follow up Intake Note: The patient agreed to use of a ophthalmic medical assistant during this encounter. Scribed for ROXANNE Green by Isa Allen ophthalmic medical assistant, on 05/08/2023 at 9:56 am EST. Manager Of Allied Health Services Required: Yes Manager Of Allied Health Services Language: Diamond Finishing Supervisor Name: Rosy WASHINGTON Information Interpreted: non-clinical & clinical Allergies Penicillins [PENICILLINS] Allergy (Intermediate, Verified 05/08/23 09:07) RASH adalimumab [Humira] Allergy (Unknown, Verified 05/08/23 09:07) rash methotrexate Allergy (Unknown, Verified 05/08/23 09:07) HIVES HPI HPI Comments History of Present Illness Details Doximity live video 9:56 am - 9:59 am. Phone Call due to Covid-19 Pandemic. Video was utilized. EMB due to endometrial cells on last pap smear. Hx of regular menses, no abnormal bleeding patterns. PFSH Medical History Abnormal Pap smear of cervix Bilateral nephrolithiasis Dysmenorrhea Enlarged uterus Frequent UTI Heavy menstrual bleeding History of uterine fibroid Irregular menses Pelvic pain Rheumatoid arthritis Surgical History H/O lithotripsy H/O tubal ligation History of back surgery Family History Paternal Aunt Breast cancer Father Asthma Diabetes Mother Lupus Sister Lupus Epilepsy Social History Household Members: None Both parents involved: No Caregiver staying overnight: No Housing: Apartment Are you a primary mall plant caretaker to a significant other at home: No Do you presently have visiting nurse or other home services: No 75 years or older and lives alone: No Alcohol intake: never Patient Tobacco Use Status: Never used Tobacco e-Cigarette/Vaping Use: Never Used Cognitive needs: No Hearing needs: No Vision needs: No Female Reproductive History Menstrual Age of Menarche: 9 Physical Exam Const General: cooperative, healthy appearing, comfortable, no acute distress, well developed, alert and awake Results Reviewed Results Reviewed: Collected: 05/05/23 Location: [facility] Received: 05/06/23 Diagnosis Endometrium, biopsy:? Benign late secretory endometrium; no atypia or carcinoma. Clinical History Endometrial cells on PAP Microscopic Description Microscopic sections reviewed. Material Received EMB Gross Description Received in formalin labeled ?EMB? is a 2.8 x 2.5 x 0.5-0.8 cm aggregate of multiple soft, rubbery, irregular, ho tissue fragments along with a moderate amount of globoid mucus and red-blood.? The specimen is submitted in toto in cassettes A1-A3. Assessment & Plan Assessment & Plan (1) Encounter to discuss test results: Code(s): Z71.2 - Person consulting for explanation of examination or test findings Plan: Discussed: EMB results of: Endometrium, biopsy:? Benign late secretory endometrium; no atypia or carcinoma. Counseled re: perimenopause vs menopause. Monitor periods, report any unscheduled bleeding, bleeding episodes less than 21 days apart or heavy prolonged menstrual bleeding. All of her questions and concerns were addressed to the best of my ability and shared decision making. She is agreeable to plan of care. RTO for AG. Telehealth Telehealth Location of provider rendering services: practice address Location of patient: address on file Patient Identification confirmed using: Name, : Yes Telehealth method: video Patient verbally consented to treatment: Yes Patient verbally consented to billing insurance company: Yes Patient informed of any privacy concerns related to visit: Yes Coding Level of Care Code Tele Est Pt Level 3 (44401) Diagnoses Encounter to discuss test results Z71.2
== END 2023-05-08 11:43 | disposition home or self-care (01) ==
LOC: HO.HWS 09:06
PROVIDERS: PCP Nurse Practitioner Family; Visit Provider Advanced Practice Midwife
DX: Z71.2 Person consulting for explanation of examination or test findings (principal)
CPT/HCPCS: 99213

== ENCOUNTER → 2023-05-08 09:06 | Outpatient (BNVA) | payer OTHER, SELFPAY | PROVIDERS: PCP Nurse Practitioner Family; Visit Provider Advanced Practice Midwife ==

== ENCOUNTER 2023-09-15 14:44 | Outpatient (AMB) | payer OTHER, SELFPAY ==
[2023-09-15 14:45] VITALS: BP 118/80; BMI 26.3
--- NOTE | 2023-09-15 14:45 | MHC.PC.OV ---
Vital Signs 09/15/23 14:45 Height 5 ft 6 in Weight 163 lb BMI 26.3 BP 118/80 Blood Pressure Location Lt brachial Position Sitting Intake Visit Reasons: PE Intake Note: Patient here for a physical exam Master Control Technician Required: No Accompanied by: Self / Same As Patient Allergies Penicillins [PENICILLINS] Allergy (Intermediate, Verified 09/15/23 15:14) RASH adalimumab [Humira] Allergy (Unknown, Verified 09/15/23 15:14) rash methotrexate Allergy (Unknown, Verified 09/15/23 15:14) HIVES Medication List - Last Reconciled 09/15/23 by Bella Watts MD albuterol sulfate 90 mcg/actuation (Ventolin HFA) 2 puffs inhalation Q4-6H PRN buspirone 15 mg PO TID cholecalciferol (vitamin D3) 50 mcg PO DAILY loratadine (Allergy Relief (loratadine)) 10 mg PO DAILY PRN 90 days mirabegron ER (Myrbetriq) 50 mg PO DAILY sertraline 50 mg PO DAILY sumatriptan succinate (Imitrex) take 1 tab at onset of headache; if no relief may repeat 1 tab after at least 2 hrs; max = 4 tabs/24 hr Tobacco use date assessed: 03/17/23 Dental Screening Dental Screen Date: 09/15/23 Did you have a dental visit in the last 12 months?: Yes Did you have a dental problem in the last 6 months where you did not have access to dental care?: No Was dental information given to patient?: Patient has dentist HPI HPI Comments History of Present Illness Details This is a 48-year-old female with mild major depression and seropositive rheumatoid arthritis that comes for her physical exam. I will start her on amitriptyline at bedtime for her depression. She has diffuse joint pain and will be referred to rheumatology again. Last mammogram was 2020. Has never had a colonoscopy and will be refer through open access. Pap smear done 2021. No chest pain or shortness of breath. [facility] Medical History (Updated 09/15/23 @ 15:43 by Bella Watts MD) Abnormal Pap smear of cervix Dysmenorrhea Heavy menstrual bleeding Pelvic pain Enlarged uterus History of uterine fibroid Irregular menses Frequent UTI Bilateral nephrolithiasis Rheumatoid arthritis Surgical History History of back surgery H/O lithotripsy H/O tubal ligation Family History (Updated 09/15/23 @ 15:19 by Bella Watts MD) Paternal Aunt Breast cancer Father Asthma Diabetes Mother Lupus Sister Lupus Epilepsy Social History Household Members: None Both parents involved: No Caregiver staying overnight: No Housing: Apartment Are you a primary home child care provider to a significant other at home: No Do you presently have visiting nurse or other home services: No 75 years or older and lives alone: No Alcohol intake: never Patient Tobacco Use Status: Never used Tobacco e-Cigarette/Vaping Use: Never Used service: No Current occupational status: employed Current occupational exposures/hazards: No Cognitive needs: No Hearing needs: No Vision needs: No Female Reproductive History Menstrual Age of Menarche: 9 Questionnaire PHQ-9 Over the last 2 weeks, how often have you been bothered by any of the following problems? 1. Little interest or pleasure in doing things: several days 2. Feeling down, depressed, or hopeless: more than half the days 3. Trouble falling or staying asleep, or sleeping too much: several days 4. Feeling tired or having little energy: several days 5. Poor appetite or overeating: more than half the days 6. Feeling bad about yourself - or that you are a failure or have let yourself or your family down: not at all 7. Trouble concentrating on things, such as reading the newspaper or watching television: not at all 8. Moving or speaking so slowly that other people could have noticed. Or the opposite - being so fidgety or restless that you have been moving around a lot more than usual: not at all 9. Thoughts that you would be better off or of hurting yourself in some way: not at all Total score: 7 Depression Screening Interpretation: Positive Depression Screening Follow-up: Existing condition and New Medication prescribed Depression Screening Done: Yes 24952 - PHQ-9 Billing: Yes Source: Developed by Drs. Jose Martin Crabtree, Jessica Fischer, Saad Etienne and colleagues, with an educational kylee from [email or web address]. Thrive Questionnaire Date Thrive assessed: 03/17/23 AUDIT C Alcohol Use Questionnaire (AUDIT-C) 1. How often do you have a drink containing alcohol?: Never Total Score: 0 CHULA-7 AMB Questionnaire CHULA-7 Date CHULA - 7 assessed: 09/15/23 Feeling nervous, anxious, or on edge: 3 = Nearly every day Not being able to stop or control worryin = Not at all Worrying too much about different things: 1 = Several days Trouble relaxin = Several days Being so restless that it is hard to sit still: 1 = Several days Becoming easily annoyed or irritable: 3 = Nearly every day Feeling afraid as if something awful might happen: 1 = Several days Total CHULA-7 score (0-4 normal; 5-9 mild; 10-14 moderate; 15-21 severe): 10 Source: Developed by Drs. Jose Martin Crabtree, Jessica Fischer, Saad Etienne and colleagues, with an educational kylee from [email or web address]. CHULA-7 Assessment Billing CHULA-7 Assessment Tool: CHULA-7 Assessment 73174 Review of Systems Const All systems reviewed & are unremarkable except as noted in HPI and below Eyes Reports no additional complaints, Denies change in vision and Denies other visual disturbances Card Denies chest pain at rest, Denies chest pain with activity, Denies edema, Denies irregular heart rhythm, Denies claudication, Denies dyspnea, Denies dyspnea on exertion, Denies orthopnea, Denies paroxysmal nocturnal dyspnea and Denies slow heart rate Resp Denies cough, Denies dyspnea and Denies dyspnea on exertion GI Denies abdominal pain, Denies change in bowel habits, Denies excessive flatus, Denies nausea and Denies vomiting Denies urinary incontinence, Denies urinary hesitancy and Denies urinary urgency Musc Denies abnormal gait, Reports back pain, Denies atrophy, Denies deformity and Denies limited range of motion Skin/Breast Denies bleeding lesions, Denies changing lesions and Denies rash Neuro Denies abnormal gait, Denies behavioral changes, Denies confusion and Denies lack of coordination Psych Reports abnormal sleep pattern, Reports anxiety, Denies behavioral changes, Denies confusion and Reports depression Physical exam (Primary Care) Vital Signs: Last Vital Signs BP 118/80 09/15/23 14:45 BMI result Body Mass Index 26.3 Tobacco/Smoking Status: Tobacco use Status Tobacco use date assessed 03/17/23 09/15/23 14:55 Patient Tobacco Use Status Never used Tobacco 09/15/23 14:55 e-Cigarette/Vaping Use Never Used 09/15/23 14:55 PHQ-9: PHQ-9 Score PHQ-9: Total score 7 09/15/23 15:20 Depression Screening Interpretation: Positive Depression Screening Follow-up: Existing condition and New Medication prescribed Thrive Assessment: Date of Thrive Assessment Date Thrive assessed 03/17/23 09/15/23 14:55 Const General: No confusion Orientation/consciousness: patient oriented x3 and No confusion HENMT Head: Yes normal to inspection, Yes normocephalic and Yes atraumatic Ears: external ears normal Eyes General: appearance normal, both eyes and all related structures Eyelids: Yes eyelids normal Conjunctivae: conjunctivae normal Neck Neck: Yes normal visual inspection and Yes supple Resp Effort & Inspection: normal respiratory effort Cardio Jugular venous distension: no JVD Rate: regular rate Rhythm: regular rhythm Heart sounds: S1 normal heart sound present and S2 normal heart sound present GI Inspection: Yes normal to inspection Palpation (GI): Soft to palpation and nontender Auscultation: normal bowel sounds Skin General skin exam: no rashes or lesions noted Neuro General: patient oriented x3, no focal motor deficits and No confusion Extrem General: Yes full ROM Psych Appearance: grossly normal Office Procedures Flu Questionnaire Does the patient have a severe egg allergy?: No Immunizations flu vacc [id number] 6mos up(PF) 60 mcg(15 mcgx4)/0.5 mL IM syringe Performing Provider: Bella Watts MD [facility] Documented (not given) by: PADMINI Shaw on 09/15/23 14:55 Reason Not Given: Patient Refused Assessment and Plan Assessment & Plan (1) Physical exam: Code(s): Z00.00 - Encounter for general adult medical examination without abnormal findings Plan: Repeat in a year. (2) Mild major depression: Code(s): F32.0 - Major depressive disorder, single episode, mild Plan: Start amitriptyline. (3) Seropositive rheumatoid arthritis: Comment: (RF++ CCP++) diagnosed January 2018. Failed MTX (dizzniess and synocopal episode) and could not tolerate Arava (dizziness). Failed Humira (allergic rxn with rash). Off Humira since Sep 2018 due to allergic reaction. On Enbrel since Nov 2018 but developed skin reaction so was switched to Olumiant in June 2019. Olumiant was ineffective so she was switched to Kevzara in October 2019 until October 2021 -patient self stop the medication. 02/2023 - no synovitis off meds Code(s): M05.9 - Rheumatoid arthritis with rheumatoid factor, unspecified Plan: Referred to rheumatology. Orders: Orders Influenza [id number] Immunization Today Z23 - Encounter for immunization MM screening mammo BI Today Z12.31 - Encounter for screening mammogram for malignant neoplasm of breast Lipid Panel Today E78.5 - Hyperlipidemia, unspecified Vitamin D 25-OH Total Today E55.9 - Vitamin D deficiency, unspecified Comprehensive [place]. Panel Fast Today J30.2 - Other seasonal allergic rhinitis Erythrocyte Sedimentation Rate Today M05.9 - Rheumatoid arthritis with rheumatoid factor, unspecified CRP High Sensitivity Today M05.9 - Rheumatoid arthritis with rheumatoid factor, unspecified BELLA Reflex Titer and Pattern Today M05.9 - Rheumatoid arthritis with rheumatoid factor, unspecified Cyclic Citrullinated Peptide Today M05.9 - Rheumatoid arthritis with rheumatoid factor, unspecified Rheumatoid Factor Today M05.9 - Rheumatoid arthritis with rheumatoid factor, unspecified Referrals Open Access Screening Colonoscopy Referral Z12.11 - Encounter for screening for malignant neoplasm of colon Rheumatology Referral M25.50 - Pain in unspecified joint Medications: New amitriptyline 10 mg PO BEDTIME 90 days 90 tabs 0RF F32.0 - Major depressive disorder, single episode, mild Changed From buspirone 15 mg PO TID To buspirone 15 mg PO TID 30 days 90 tabs 2RF Refilled albuterol sulfate 90 mcg/actuation (Ventolin HFA) 2 puffs inhalation Q4-6H PRN 8.5 grams 0RF shortness of breath or wheezing J30.2 - Other seasonal allergic rhinitis loratadine (Allergy Relief (loratadine)) 10 mg PO DAILY 90 days PRN 90 tabs 1RF allergy symptoms Coding Level of Care Code Est Pt Prev Care 40-64y(40746) Diagnoses Physical exam Z00.00 Mild major depression F32.0 Seropositive rheumatoid arthritis M05.9 Additional Codes CHULA-7 Assessment Billing - CHULA-7 Assessment Tool: CHULA-7 Assessment 02617 ([id number]) Time Spent (min) 32
== END 2023-09-15 15:32 | disposition home or self-care (01) ==
PROVIDERS: Visit Provider Internal Medicine
DX: Z00.00 Encounter for general adult medical examination without abnormal findings (principal); F33.0 Major depressive disorder, recurrent, mild; M05.9 Rheumatoid arthritis with rheumatoid factor, unspecified; Z23 Encounter for immunization
CPT/HCPCS: 96127; 99396

== ENCOUNTER 2023-09-18 14:10 | Outpatient (AMB) | payer OTHER, SELFPAY ==
[2023-09-18 14:17] VITALS: BP 114/70; PULSE 88; TEMP 36; O2SAT 98; BMI 27.1
--- NOTE | 2023-09-18 14:17 | A.OFFVIS_ITS ---
Intake Vital Signs 09/18/23 14:17 Height 5 ft 6 in Weight 167 lb 12.348 oz BMI 27.1 BP 114/70 Blood Pressure Location Rt brachial Position Sitting Pulse 88 Temp 96.8 F Temp Source Skin Pulse Oximetry (%) 98 Oxygen Delivery Method Room Air Intake Visit Reasons: Rheumatoid arthritis Intake Note: Pt last seen by Michelle 03/13/23, no showed to follow up with Dr Canales. Presents today at the request of PCP. Pt has c/o multiple joint pain. Has tried MTX, Olumiant, Enbrel, Humira and Kevzara in the past. She mentions w hen she was on Humira her joint pain was less, but was taken off because she developed a reaction. Optical Mechanic Apprentice Required: No Optical Mechanic Apprentice Name: Viet [id number] Accompanied by: Self / Same As Patient Allergies Penicillins [PENICILLINS] Allergy (Intermediate, Verified 09/18/23 14:23) RASH adalimumab [Humira] Allergy (Unknown, Verified 09/18/23 14:23) rash methotrexate Allergy (Unknown, Verified 09/18/23 14:23) HIVES Medication List - Last Reconciled 09/18/23 by Jian Hensley MD albuterol sulfate 90 mcg/actuation (Ventolin HFA) 2 puffs inhalation Q4-6H PRN amitriptyline 10 mg PO BEDTIME 90 days buspirone 15 mg PO TID 30 days cholecalciferol (vitamin D3) 50 mcg PO DAILY loratadine (Allergy Relief (loratadine)) 10 mg PO DAILY PRN 90 days mirabegron ER (Myrbetriq) 50 mg PO DAILY sumatriptan succinate (Imitrex) take 1 tab at onset of headache; if no relief may repeat 1 tab after at least 2 hrs; max = 4 tabs/24 hr HPI HPI Comments History of Present Illness Details This is a 48-year-old female with seropositive RA who presents for follow-up. Was last seen by Marilynn Lemos 02/2023. Patient has been off DMARDs Patient states that she used to have diffuse pain, especially in her back. She also has pain in her wrists, right shoulder, right knee, associated with stiffness and bilateral big toe pain. She has been on multiple DMARDs, she has done the best on Kevzara but she would developed a bruise at the site of the injection [facility] Medical History Abnormal Pap smear of cervix Dysmenorrhea Heavy menstrual bleeding Pelvic pain Enlarged uterus History of uterine fibroid Irregular menses Frequent UTI Bilateral nephrolithiasis Rheumatoid arthritis Surgical History History of back surgery H/O lithotripsy H/O tubal ligation Family History Paternal Aunt Breast cancer Father Asthma Diabetes Mother Lupus Sister Lupus Epilepsy Social History Household Members: None Both parents involved: No Caregiver staying overnight: No Housing: Apartment Are you a primary personal care worker to a significant other at home: No Do you presently have visiting nurse or other home services: No 75 years or older and lives alone: No Alcohol intake: never Patient Tobacco Use Status: Never used Tobacco e-Cigarette/Vaping Use: Never Used service: No Current occupational status: employed Current occupational exposures/hazards: No Cognitive needs: No Hearing needs: No Vision needs: No Female Reproductive History Menstrual Age of Menarche: 9 Review of Systems Musc Reports back pain, Reports deformity, Reports arthralgias and Reports joint swelling Physical Exam Vital Signs: Last Vital Signs Temp 96.8 F 09/18/23 14:17 Pulse 88 09/18/23 14:17 BP 114/70 09/18/23 14:17 Pulse Ox 98 09/18/23 14:17 Oxygen Delivery Method Room Air 09/18/23 14:17 BMI result Body Mass Index 27.1 Const General: cooperative, healthy appearing and comfortable Nutritional Appearance: overweight Orientation/consciousness: patient oriented x3 Limitations: no limitations HEENT Head: Yes normocephalic and Yes atraumatic Mouth: moist mucous membranes Resp Effort & Inspection: normal respiratory effort and able to speak in complete sentences Auscultation: clear to auscultation bilaterally Cardio Rate: regular rate Skin General skin exam: no rashes or lesions noted Neuro General: patient oriented x3 Extrem Other: Reduced range of motion of both shoulders, worse on the right Negative empty can test bilaterally Right elbow pain with full extension Left wrist pain with full flexion and extension No swollen or tender joints in both hands Right knee pain with flexion Left ankle tenderness to palpation Bilateral foot bunions, tender to palpation Right foot fibular deviation Negative MTP squeeze test Normal nailfold capillaroscopy Assessment & Plan Assessment & Plan (1) Seropositive rheumatoid arthritis: Comment: (RF++ CCP++) diagnosed 2017 Failed MTX (dizzniess and synocopal episode) could not tolerate Arava (dizziness). Failed Humira (allergic rxn with rash). Off Humira since Sep 2018 due to allergic reaction. On Enbrel since Nov 2018 but developed skin reaction switched to Olumiant in June 2019. Olumiant was ineffective so she was switched to Kevzara in October 2019 until October 2021 -patient self stop the medication Code(s): M05.9 - Rheumatoid arthritis with rheumatoid factor, unspecified Plan: This is a 48-year-old female with history of seropositive RA who presents for follow-up. She is off DMARDs. She continues to have multiple tender joints. Some of her symptoms are related to osteoarthritis. Patient however needs to restart DMARDs. She has done her best on Kevzara. But she would develop a local skin reaction. Advised patient to ice the injection area for 5 minutes before and after injection. Will start prior authorization for Kevzara Check labs and x-rays of involved joints today Labs before next visit in 3 months Plan I spent 30 minutes reviewing patient's chart, evaluating patient, ordering diagnostic workup, counseling patient and documenting in the chart Orders: Orders Comprehensive Met. Panel Today M05.9 - Rheumatoid arthritis with rheumatoid factor, unspecified XR knee RT 3V Today M05.9 - Rheumatoid arthritis with rheumatoid factor, unspecified XR hand wrist LT Today M05.9 - Rheumatoid arthritis with rheumatoid factor, unspecified XR hand wrist RT Today M05.9 - Rheumatoid arthritis with rheumatoid factor, unspecified XR shoulder RT min 2V Today M05.9 - Rheumatoid arthritis with rheumatoid factor, unspecified Erythrocyte Sedimentation Rate 3 Months M05.9 - Rheumatoid arthritis with rheumatoid factor, unspecified Complete Blood Count Auto Diff Today M05.9 - Rheumatoid arthritis with rheumatoid factor, unspecified C Reactive Protein Today M05.9 - Rheumatoid arthritis with rheumatoid factor, unspecified Erythrocyte Sedimentation Rate Today M05.9 - Rheumatoid arthritis with rheumatoid factor, unspecified Rheumatoid Factor Today M05.9 - Rheumatoid arthritis with rheumatoid factor, unspecified Cyclic Citrullinated Peptide Today M05.9 - Rheumatoid arthritis with rheumatoid factor, unspecified XR knee LT 3V Today M05.9 - Rheumatoid arthritis with rheumatoid factor, unspecified XR knee standing BI Today M05.9 - Rheumatoid arthritis with rheumatoid factor, unspecified XR shoulder LT min 2V Today M05.9 - Rheumatoid arthritis with rheumatoid factor, unspecified XR ankle LT min 3V Today M05.9 - Rheumatoid arthritis with rheumatoid factor, unspecified XR ankle RT min 3V Today M05.9 - Rheumatoid arthritis with rheumatoid factor, unspecified XR foot LT min 3V Today M05.9 - Rheumatoid arthritis with rheumatoid factor, unspecified XR foot RT min 3V Today M05.9 - Rheumatoid arthritis with rheumatoid factor, unspecified Comprehensive Met. Panel 3 Months M05.9 - Rheumatoid arthritis with rheumatoid factor, unspecified Complete Blood Count Auto Diff 3 Months M05.9 - Rheumatoid arthritis with rheumatoid factor, unspecified C Reactive Protein 3 Months M05.9 - Rheumatoid arthritis with rheumatoid factor, unspecified Coding Level of Care Code Est Pt Level 4 (95423) Diagnoses Seropositive rheumatoid arthritis M05.9
== END 2023-09-18 14:59 | disposition home or self-care (01) ==
PROVIDERS: PCP Nurse Practitioner Family; Visit Provider Student in an Organized Health Care Education/Training Program
DX: M05.79 Rheumatoid arthritis with rheumatoid factor of multiple sites without organ or systems involvement (principal)
CPT/HCPCS: 99214

== ENCOUNTER → 2023-09-18 14:10 | Outpatient (BNVA) | payer OTHER, SELFPAY | PROVIDERS: PCP Nurse Practitioner Family; Visit Provider Student in an Organized Health Care Education/Training Program | DX: M05.9 Rheumatoid arthritis with rheumatoid factor, unspecified (principal) | CPT/HCPCS: 99212 ==

== ENCOUNTER 2023-11-25 01:20 | Emergency (ER) | payer OTHER, SELFPAY ==
--- NOTE | 2023-11-25 | ECG_ITS ---
Test Reason : CHEST PAIN Blood Pressure : / mmHG Vent. Rate : 052 BPM Atrial Rate : 052 BPM P-R Int : 138 ms QRS Dur : 076 ms QT Int : 450 ms P-R-T Axes : 052 -06 014 degrees QTc Int : 418 ms Sinus bradycardia Low voltage QRS Borderline ECG When compared with ECG of 28-AUG-2018 20:26, Vent. rate has decreased BY 39 BPM QT has shortened Referred By: Kapil Harrison Electronically Signed By:GOGO LONDON
--- NOTE | ~2023-11-25 | XR_ITS ---
EXAMINATION: XR CHEST CLINICAL INFORMATION: Chest pain. COMPARISON: 08/28/2018. TECHNIQUE: 2 views of the chest were obtained. FINDINGS: No significant abnormality is noted involving the heart, lungs, mediastinum, bony thorax or soft tissues. XR/XR chest 2V IMPRESSION: Unremarkable examination.
[2023-11-25 01:27] VITALS: BP 120/78; PULSE 60; O2SAT 98
[2023-11-25 01:31] VITALS: BP 136/73; PULSE 60; RESP 18; TEMP 36.8; O2SAT 99; BMI 27.8
--- NOTE | 2023-11-25 01:35 | ED_ITS ---
HPI - Chest Pain General Chief Complaint: Chest Pain Stated Complaint: diarrhea and dizziness Time Seen by Provider: 11/25/23 01:35 History of Present Illness HPI narrative: Patient is a 48-year-old woman who developed chest pain on the right side of her chest 2 days ago on Thursday. She had the pain all day Thursday and Thursday. On Thursday afternoon her family brought her to the emergency room to be evaluated but it was very. After getting home tonight the patient had some worsening right-sided chest pain and apparently had a syncopal episode in front of her son. They then called an ambulance and she was brought back to the hospital. She reports some mild diarrhea. No nausea or vomiting. The pain in the right anterior chest in the right posterior chest. Related Data Previous Rx's Medication Instructions Recorded sumatriptan succinate 25 mg tablet See Rx Instructions PO .COMPLEX 04/15/23 (Imitrex) #14 tabs mirabegron 50 mg tablet,extended 50 mg PO DAILY #90 tabs 05/06/23 release 24 hr (Myrbetriq) cholecalciferol (vitamin D3) 50 50 mcg PO DAILY #90 tabs 06/22/23 mcg (2,000 unit) tablet albuterol sulfate 90 mcg/actuation 2 puff inhalation Q4-6H PRN 09/15/23 aerosol inhaler (Ventolin HFA) shortness of breath or wheezing #8.5 grams amitriptyline 10 mg tablet 10 mg PO BEDTIME 90 days #90 tabs 09/15/23 buspirone 15 mg tablet 15 mg PO TID 30 days #90 tabs 09/15/23 loratadine 10 mg tablet (Allergy 10 mg PO DAILY PRN allergy 09/15/23 Relief (loratadine)) symptoms 90 days #90 tabs ibuprofen 600 mg tablet 600 mg PO Q6H PRN pain #14 tabs 11/25/23 Allergies Allergy/AdvReac Type Severity Reaction Status Date / Time Penicillins [PENICILLINS] Allergy Intermediate RASH Verified 09/18/23 14:23 adalimumab [Humira] Allergy Unknown rash Verified 09/18/23 14:23 methotrexate Allergy Unknown HIVES Verified 09/18/23 14:23 [facility], [facility] Past Medical History Medical History Abnormal Pap smear of cervix Dysmenorrhea Heavy menstrual bleeding Pelvic pain Enlarged uterus History of uterine fibroid Irregular menses Frequent UTI Bilateral nephrolithiasis Rheumatoid arthritis Surgical History History of back surgery H/O lithotripsy H/O tubal ligation Family History Family History Paternal Aunt Breast cancer Father Asthma Diabetes Mother Lupus Sister Lupus Epilepsy Social History Social History Household Members: None Housing: Apartment Are you a primary health care aide to a significant other at home: No Do you presently have visiting nurse or other home services: No Alcohol intake: never Patient Tobacco Use Status: Never used Tobacco Smoked in Last 30 Days: No e-Cigarette/Vaping Use: Never Used Use of substances other than those prescribed or required for medical reasons: No Advance Directives: No Advance Directives Information Provided: No Patient : No service: No Current occupational status: employed Current occupational exposures/hazards: No Cognitive needs: No Hearing needs: No Vision needs: No Physical Exam 2 Vital Signs: Vital Signs: Last Vital Signs Temp 98.0 F 11/25/23 04:31 Pulse 77 11/25/23 04:31 Resp 20 11/25/23 04:31 BP 120/52 L 11/25/23 04:31 Pulse Ox 99 11/25/23 04:31 O2 Del Method Room Air 11/25/23 04:31 BMI result Body Mass Index 27.8 Const: Other: The patient is awake and alert. She does not appear in acute distress but has an anxious affect. HEENT: Other: The face is symmetrical. ?Mucous membranes moist. Eyes: Other: Pupils are round equal, conjunctivae are clear, extraocular movements intact Neck: Other: No JVD Chest: Other: The patient has significant chest wall tenderness at the right costal margin. Palpation seems to reproduce her pain. Resp: Effort & Inspection: normal respiratory effort Auscultation: clear to auscultation bilaterally Cardio: Rate: regular rate Rhythm: regular rhythm Heart sounds: S1 normal heart sound present and S2 normal heart sound present GI: Other: Abdomen is soft and nontender. Skin: Other: Skin is warm and dry. Neuro: Other: The patient is awake, alert, pleasant, cooperative. Cranial nerves are grossly intact. She moves her extremities normally and appropriately. She is grossly neurologically intact. Extrem: Other: No calf swelling or tenderness. No calf asymmetry. No pedal edema. Medications Administered Discontinued Medications Generic Name Dose Route Start Last Admin Trade Name Damien PRN Reason Stop Dose Admin Ketorolac Tromethamine 30 mg 11/25/23 03:09 11/25/23 03:27 Ketorolac Tromethamine 30 Mg/Ml Vial IM 11/25/23 03:10 30 mg ONCE ONE Administration Medical Decision Making Medical Decision Making [facility] Narrative: The patient is a 48-year-old woman who comes to emergency department with a complaint of chest pain. She looks quite uncomfortable. However her physical exam seems most suggestive of a costochondritis type syndrome. Her EKG shows no ischemic changes. She has unremarkable labs including an undetectable troponin and a negative D-dimer. Chest x-ray is clear. She was treated with ketorolac for pain. She was reassured and discharged with her family. Lab Data 11/25/23 01:43 11/25/23 01:43 Labs: Lab Results 11/25/23 11/25/23 Range/Units 01:43 01:52 WBC 9.3 (4.8-10.8) X10*3/uL RBC 4.11 L (4.20-5.50) X10*6/uL Hgb 11.0 L (12.0-16.0) g/dl Hct 33.8 L (37.0-47.0) % MCV 82.2 (80.0-98.0) fL MCH 26.8 L (27.0-33.0) pg MCHC 32.5 (31.0-35.0) g/dl RDW 14.3 (11.0-16.0) % Plt Count 281 D (160-400) X10*3/uL MPV 9.1 L (9.4-12.3) fL Immature Gran % (Auto) 0.5 H (0.0-0.4) % Neut % (Auto) 67.8 (45-73) % Lymph % (Auto) 22.1 (20-40) % [place] % (Auto) 7.6 (2-11) % Eos % (Auto) 1.8 (0-4) % Baso % (Auto) 0.2 (0-2) % Lymph # (Auto) 2.1 (1.2-4.9) X10*3/uL [place] # (Auto) 0.7 (0.1-1.2) X10*3/uL Eos # (Auto) 0.2 (0.0-0.4) X10*3/uL Baso # (Auto) 0.0 (0.0-0.2) X10*3/uL Abs Immat Gran (auto) 0.05 H (0.00-0.03) X10*3/uL Absolute Neuts (auto) 6.3 (2.0-8.3) x10*3/uL Absolute Nucleated RBC 0.000 (0.0-0.012) X10*3/uL Nucleated RBC % (auto) 0.0 (0.0-0.2) /100WBC D-Dimer High Sensitivty < 150 NG/ML Sodium 139 (135-145) mmol/L Potassium 3.7 (3.3-5.1) mmol/L Chloride 106 (96-108) mmol/L Carbon Dioxide 26 (22-29) mmol/L Anion Gap 11 L (12-20) BUN 16 (9-16) mg/dL Creatinine 0.77 (0.5-1.4) mg/dL Estim Creat Clear Calc 92.1 Estimated GFR > 60 Random Glucose 112 (60-115) mg/dL Calcium 8.5 (8.4-10.2) mg/dL Total Bilirubin 0.3 (0.0-1.0) mg/dL AST 14 (5-31) U/L ALT 11 (0-31) U/L Alkaline Phosphatase 63 (39-117) U/L Troponin I High Sens < 2.7 (<3.5-17.0) ng/L Total Protein 7.0 (6.5-8.0) g/dL Albumin 3.6 (3.5-5.0) g/dL Independent Interpretation I performed an independent interpretation of an: EKG Interpretation: EKG at 12/21/2000 shows sinus bradycardia at 52 beats per minute. No acute ischemic changes. Discharge Plan Discharge Clinical Impression: Acute chest wall pain, Vasovagal syncope Patient Disposition: Home, Self-Care Instructions: Syncope (ED), Chest Wall Pain (ED) Additional Instructions: Your testing in the emergency room today is very reassuring. You may use ibuprofen as needed for pain. Please make a follow-up appointment with your regular doctor soon for a 2nd opinion. Return to the emergency room if worse. Prescriptions: New ibuprofen 600 mg tablet 600 mg PO Q6H PRN (Reason: pain) Qty: 14 0RF No Action sumatriptan succinate [Imitrex] 25 mg tablet See Rx Instructions .ROUTE .COMPLEX Qty: 14 0RF Rx Instructions: take 1 tab at onset of headache; if no relief may repeat 1 tab after at least 2 hrs; max = 4 tabs/24 hr cholecalciferol (vitamin D3) 50 mcg (2,000 unit) tablet 50 mcg PO DAILY Qty: 90 0RF albuterol sulfate [Ventolin HFA] 90 mcg/actuation HFA aerosol inhaler 2 puff inhalation Q4-6H PRN (Reason: shortness of breath or wheezing) Qty: 8.5 0RF loratadine [Allergy Relief (loratadine)] 10 mg tablet 10 mg PO DAILY PRN (Reason: allergy symptoms) 90 Days Qty: 90 1RF buspirone 15 mg tablet 15 mg PO TID 30 Days Qty: 90 2RF amitriptyline 10 mg tablet 10 mg PO BEDTIME 90 Days Qty: 90 0RF ciprofloxacin HCl 500 mg tablet 500 mg PO ONCE Qty: 1 0RF naproxen 500 mg tablet 500 mg PO ONCE Qty: 1 0RF lidocaine HCl 2 % jelly in applicator 10 ml intra-urethral ONCE Qty: 10 0RF Myrbetriq 50 mg tablet extended release 24 hr 50 mg PO DAILY Qty: 90 0RF Referrals: Bella Armstrong MD [Primary Care Provider] - (Chest wall pain, vasovagal syncope) Stand Alone Forms: Work/School Release Interventions: ED Discharge Assessment Last Done: 11/25/23 04:54 Discharge Date/Time: 11/25/23 04:55
[2023-11-25 01:37] VITALS: PULSE 61
[2023-11-25 01:52] LABS: MANUAL DIFF FLAG NO
[2023-11-25 01:53] LABS: Basophils Percent Auto 0.2 % (0-2); Eosinophils Absolute Auto 0.2 X10*3/uL (0.0-0.4); Eosinophils Percent Auto 1.8 % (0-4); Hematocrit 33.8 % (37.0-47.0); Imm Gran Abs Auto 0.05 X10*3/uL (0.00-0.03); Imm Gran Pct Auto 0.5 % (0.0-0.4); Lymphocytes Absolute Auto 2.1 X10*3/uL (1.2-4.9); Lymphocytes Percent Auto 22.1 % (20-40); Mean Corpuscular HGB Conc 32.5 g/dl (31.0-35.0); Mean Corpuscular Hemoglobin 26.8 pg (27.0-33.0); Mean Corpuscular Volume 82.2 fL (80.0-98.0); Mean Platelet Volume 9.1 fL (9.4-12.3); Monocytes Absolute Auto 0.7 X10*3/uL (0.1-1.2); Monocytes Percent Auto 7.6 % (2-11); Neutrophils Absolute Auto 6.3 x10*3/uL (2.0-8.3); Neutrophils Percent Auto 67.8 % (45-73); Platelet Count 281 X10*3/uL (160-400); Red Blood Count 4.11 X10*6/uL (4.20-5.50); Red Cell Distribution Width 14.3 % (11.0-16.0); White Blood Count 9.3 X10*3/uL (4.8-10.8)
[2023-11-25 02:08] LABS: Alanine Aminotransferase 11 U/L (0-31); Albumin Level 3.6 g/dL (3.5-5.0); Alkaline Phosphatase 63 U/L (39-117); Anion Gap 11 (12-20); Aspartate Amino Transferase 14 U/L (5-31); Bilirubin Total 0.3 mg/dL (0.0-1.0); Blood Urea Nitrogen 16 mg/dL (9-16); Calcium 8.5 mg/dL (8.4-10.2); Carbon Dioxide 26 mmol/L (22-29); Chloride 106 mmol/L (96-108); Creatinine Clr Calc Pharmacy 92.1; Estimated Glomerular Filt Rate > 60; Glucose Random 112 mg/dL (60-115); Potassium 3.7 mmol/L (3.3-5.1); Sodium 139 mmol/L (135-145)
[2023-11-25 02:21] LABS: Troponin-I High Sensitivity < 2.7 ng/L (<3.5-17.0)
[2023-11-25 02:30] LABS: D Dimer High Sensitivity < 150 NG/ML
[2023-11-25] MEDS: Ketorolac Tromethamine 30 MG/ML VIAL IM (03:27)
[2023-11-25 04:02] VITALS: BP 128/68; PULSE 75; RESP 17; TEMP 36.6; O2SAT 98
[2023-11-25 04:31] VITALS: BP 120/52; PULSE 77; RESP 20; TEMP 36.7; O2SAT 99
== END 2023-11-25 04:55 | disposition home or self-care (01) ==
PROVIDERS: Emergency Provider Emergency Medicine; PCP Internal Medicine
DX: R07.89 Other chest pain (principal); R55 Syncope and collapse
CPT/HCPCS: 36415; 71046; 80053; 84484; 85025; 85379; 93005; 96372; 99284; 99285; J1885

== ENCOUNTER → 2023-11-25 01:35 | Outpatient (BNV) | payer OTHER, SELFPAY | PROVIDERS: Emergency Provider Emergency Medicine; PCP Internal Medicine; Visit Provider Internal Medicine | DX: R07.9 Chest pain, unspecified (principal) | CPT/HCPCS: 93010 ==

== ENCOUNTER 2024-01-05 08:14 | Outpatient (REF) | payer OTHER, SELFPAY ==
[2024-01-05 08:29] LABS: MANUAL DIFF FLAG NO
[2024-01-05 08:39] LABS: Basophils Percent Auto 0.4 % (0-2); Eosinophils Absolute Auto 0.1 X10*3/uL (0.0-0.4); Eosinophils Percent Auto 2.4 % (0-4); Hematocrit 36.1 % (37.0-47.0); Hemoglobin 11.7 g/dl (12.0-16.0); Imm Gran Abs Auto 0.01 X10*3/uL (0.00-0.03); Imm Gran Pct Auto 0.2 % (0.0-0.4); Lymphocytes Absolute Auto 1.2 X10*3/uL (1.2-4.9); Lymphocytes Percent Auto 22.3 % (20-40); Mean Corpuscular HGB Conc 32.4 g/dl (31.0-35.0); Mean Corpuscular Hemoglobin 26.5 pg (27.0-33.0); Mean Corpuscular Volume 81.9 fL (80.0-98.0); Mean Platelet Volume 9.4 fL (9.4-12.3); Monocytes Absolute Auto 0.8 X10*3/uL (0.1-1.2); Monocytes Percent Auto 14.1 % (2-11); Neutrophils Absolute Auto 3.3 x10*3/uL (2.0-8.3); Neutrophils Percent Auto 60.6 % (45-73); Platelet Count 293 X10*3/uL (160-400); Red Blood Count 4.41 X10*6/uL (4.20-5.50); Red Cell Distribution Width 13.5 % (11.0-16.0); White Blood Count 5.5 X10*3/uL (4.8-10.8)
[2024-01-05 09:00] LABS: Alanine Aminotransferase 13 U/L (0-31); Albumin Level 4.2 g/dL (3.5-5.0); Alkaline Phosphatase 72 U/L (39-117); Anion Gap 10 (12-20); Aspartate Amino Transferase 15 U/L (5-31); Bilirubin Total 0.5 mg/dL (0.0-1.0); Blood Urea Nitrogen 6 mg/dL (9-16); C Reactive Protein 0.33 mg/dL (< or = 0.50); Calcium 9.3 mg/dL (8.4-10.2); Carbon Dioxide 27 mmol/L (22-29); Chloride 104 mmol/L (96-108); Estimated Glomerular Filt Rate > 60; Glucose Random 91 mg/dL (60-115); Potassium 3.7 mmol/L (3.3-5.1); Sodium 137 mmol/L (135-145); Total Protein 8.2 g/dL (6.5-8.0)
[2024-01-05 09:17] LABS: Erythrocyte Sedimentation Rate 33 MM/HR (0-20)
[2024-01-05 10:14] LABS: Rheumatoid Factor 142.4 IU/mL (<15.0)
[2024-01-07 14:04] LABS: Cyclic Citrullinated Peptide >250 UNITS
== END 2024-01-05 08:15 | disposition home or self-care (01) ==
LOC: HO.LAB 08:14
PROVIDERS: PCP Internal Medicine; Visit Provider Student in an Organized Health Care Education/Training Program
DX: M05.9 Rheumatoid arthritis with rheumatoid factor, unspecified (principal)
CPT/HCPCS: 36415; 80053; 85025; 85652; 86140; 86200; 86431

== ENCOUNTER 2024-01-08 01:15 | Emergency (ER) | payer OTHER, SELFPAY ==
--- NOTE | ~2024-01-08 | XR_ITS ---
EXAMINATION: XR KNEE, RIGHT CLINICAL INFORMATION: Right knee pain. COMPARISON: None available. TECHNIQUE: Two views of the right knee. FINDINGS: No fracture or joint effusion. Alignment is anatomic. Joint spaces are maintained. No abnormal soft tissue calcification. XR/XR knee RT 2V IMPRESSION: No significant abnormality identified.
[2024-01-08 01:27] VITALS: BP 155/71; PULSE 66; RESP 18; TEMP 36.8; O2SAT 99; BMI 25.8
[2024-01-08 03:37] VITALS: BP 127/62; PULSE 57; RESP 18; TEMP 36.3; O2SAT 100
--- NOTE | 2024-01-08 04:00 | ED.EXTPRO ---
HPI - Extremity Problem General Chief complaint: Extremity Problem Stated complaint: right knee swollen Time Seen by Provider: 01/08/24 03:44 Source: patient Mode of arrival: ambulatory History of Present Illness HPI Narrative: 48-year-old female states that she was at work, denies any falls or direct injury to the right knee but states she went to bend down and then experience significant amount of pain at the medial aspect of the superior portion of the kneecap and now is experiencing pain on weight Related Data Previous Rx's Medication Instructions Recorded sumatriptan succinate 25 mg tablet See Rx Instructions PO .COMPLEX 04/15/23 (Imitrex) #14 tabs mirabegron 50 mg tablet,extended 50 mg PO DAILY #90 tabs 05/06/23 release 24 hr (Myrbetriq) cholecalciferol (vitamin D3) 50 50 mcg PO DAILY #90 tabs 06/22/23 mcg (2,000 unit) tablet albuterol sulfate 90 mcg/actuation 2 puff inhalation Q4-6H PRN 09/15/23 aerosol inhaler (Ventolin HFA) shortness of breath or wheezing #8.5 grams buspirone 15 mg tablet 15 mg PO TID 30 days #90 tabs 09/15/23 loratadine 10 mg tablet (Allergy 10 mg PO DAILY PRN allergy 09/15/23 Relief (loratadine)) symptoms 90 days #90 tabs ibuprofen 600 mg tablet 600 mg PO Q6H PRN pain #14 tabs 11/25/23 amitriptyline 10 mg tablet 10 mg PO BEDTIME 90 days #90 tabs 12/12/23 Kevzara 200 mg/1.14 mL 200 mg (1.14 mL) subcut Q2W #2.28 01/04/24 subcutaneous pen injector mL (sarilumab) Allergies Allergy/AdvReac Type Severity Reaction Status Date / Time Penicillins [PENICILLINS] Allergy Intermediate RASH Verified 01/08/24 01:26 adalimumab [Humira] Allergy Unknown rash Verified 01/08/24 01:26 methotrexate Allergy Unknown HIVES Verified 01/08/24 01:26 Review of Systems Review of Systems: Pertinent positives and negatives as stated in HPI PMFSH Past Medical History Source: nursing notes reviewed Medical History Abnormal Pap smear of cervix Dysmenorrhea Heavy menstrual bleeding Pelvic pain Enlarged uterus History of uterine fibroid Irregular menses Frequent UTI Bilateral nephrolithiasis Rheumatoid arthritis Surgical History History of back surgery H/O lithotripsy H/O tubal ligation Family History Family History Paternal Aunt Breast cancer Father Asthma Diabetes Mother Lupus Sister Lupus Epilepsy Social History Social History Household Members: None Housing: Apartment Are you a primary respiratory care specialist to a significant other at home: No Do you presently have visiting nurse or other home services: No Alcohol intake: never Patient Tobacco Use Status: Never used Tobacco e-Cigarette/Vaping Use: Never Used Advance Directives: No Advance Directives Information Provided: Yes service: No Current occupational status: employed Current occupational exposures/hazards: No Cognitive needs: No Hearing needs: No Vision needs: No Physical Exam Vital Signs: Vital Signs: Last Vital Signs Temp 97.3 F 01/08/24 03:37 Pulse 57 01/08/24 03:37 Resp 18 01/08/24 03:37 BP 127/62 01/08/24 03:37 Pulse Ox 100 01/08/24 03:37 O2 Del Method Room Air 01/08/24 03:37 BMI result Body Mass Index 25.8 VITAL SIGNS: Reviewed. GENERAL: Well developed, well nourished, in no acute distress. HEAD: Normocephalic/atraumatic EYES: PERRLA, EOMI LUNGS: Normal breath sounds. No adventitious sounds or accessory muscle use. SpO2<100> CARDIOVASCULAR: Regular rate and rhythm without noted murmurs ABDOMEN: Soft, non-tender, non-distended with bowel sounds. MUSCULOSKELETAL: No tenderness, deformities, or effusions noted on gross inspection. EXTREMITIES: No cyanosis, clubbing or edema. RIGHT KNEE: No deformity, no obvious effusion, no erythema/induration, no palpable cords, no ecchymosis no patellar ligament tenderness SKIN: Inspection of the skin reveals no rashes NEUROLOGIC: Alert and oriented x 4. Strength and sensation to light touch were grossly intact x 4. Medical Decision Making Medical Decision Making MDM Narrative: 48-year-old female with history and clinical presentation of acute right knee pain that is atraumatic in nature, possible meniscal injury, possible muscle strain, tenderness to palpation is very pinpoint but not associated with anything such as thrombophlebitis or evidence to suggest occult DVT, location of pain is inconsistent with Alexander cyst rupture and otherwise no effusion. I reviewed the x-ray which is negative for bony abnormality and does not identify any effusion either. Applied Daniel wrap to the knee and gave patient combination analgesics and she is otherwise discharged home with recommendations to follow-up with her primary care doctor. Differential Diagnosis Differential Diagnoses: The differential diagnosis associated with the presentation includes Please see the discussion above Admission/Observation Consideration of admission/observation: Escalation of care including admission/observation considered Please see the discussion Radiology Impression Discussion of test interpretation with radiology: I have reviewed the radiologist's reading. Radiologist Impression: Please see discussion Discharge Plan Discharge Clinical Impression: Knee pain, right Patient Disposition: Home, Self-Care Instructions: Knee Pain (ED), How to Use an Elastic Bandage (ED) Additional Instructions: 1. Resume all home medications as prescribed. 2. Recommend [id number] Tylenol/ibuprofen as needed for pain control. Also recommend applying ice to unexposed skin for 10-15 minutes for additional symptom relief. 3. Please follow-up with your primary care doctor in the next 2-3 days. Return to the ER for any worsening symptoms Prescriptions: No Action sumatriptan succinate [Imitrex] 25 mg tablet See Rx Instructions .ROUTE .COMPLEX Qty: 14 0RF Rx Instructions: take 1 tab at onset of headache; if no relief may repeat 1 tab after at least 2 hrs; max = 4 tabs/24 hr cholecalciferol (vitamin D3) 50 mcg (2,000 unit) tablet 50 mcg PO DAILY Qty: 90 0RF amitriptyline 10 mg tablet 10 mg PO BEDTIME 90 Days Qty: 90 0RF Kevzara 200 mg/1.14 mL pen injector 200 mg subcut Q2W Qty: 2.28 2RF ibuprofen 600 mg tablet 600 mg PO Q6H PRN (Reason: pain) Qty: 14 0RF albuterol sulfate [Ventolin HFA] 90 mcg/actuation HFA aerosol inhaler 2 puff inhalation Q4-6H PRN (Reason: shortness of breath or wheezing) Qty: 8.5 0RF loratadine [Allergy Relief (loratadine)] 10 mg tablet 10 mg PO DAILY PRN (Reason: allergy symptoms) 90 Days Qty: 90 1RF buspirone 15 mg tablet 15 mg PO TID 30 Days Qty: 90 2RF ciprofloxacin HCl 500 mg tablet 500 mg PO ONCE Qty: 1 0RF naproxen 500 mg tablet 500 mg PO ONCE Qty: 1 0RF lidocaine HCl 2 % jelly in applicator 10 ml intra-urethral ONCE Qty: 10 0RF Myrbetriq 50 mg tablet extended release 24 hr 50 mg PO DAILY Qty: 90 0RF Referrals: Bella Armstrong MD [Primary Care Provider] -
[2024-01-08] MEDS: Ibuprofen 400 MG TABLET PO (04:18)
[2024-01-08] MEDS: Acetaminophen 325 MG TABLET 975 MG PO (04:18)
[2024-01-08 04:23] VITALS: BP 139/74; PULSE 61; RESP 15; TEMP 36.5; O2SAT 98
== END 2024-01-08 04:26 | disposition home or self-care (01) ==
PROVIDERS: Emergency Provider Student in an Organized Health Care Education/Training Program; PCP Internal Medicine
DX: M25.561 Pain in right knee (principal)
CPT/HCPCS: 73560; 99283; 99284

== ENCOUNTER 2024-08-23 10:41 | Emergency (ER) | payer MEDICAID, SELFPAY ==
--- NOTE | ~2024-08-23 | US_ITS ---
EXAMINATION: US PELVIS CLINICAL INFORMATION: Vaginal bleed. COMPARISON: None available. TECHNIQUE: Ultrasound of the pelvis is performed using both transabdominal and transvaginal transducers along with Doppler. Transvaginal imaging is performed due to inadequate visualization transabdominally. FINDINGS: Uterus: The uterus is anteverted and measures 11 x 5 x 9 cm. No gross solid or cystic lesions The double wall endometrial thickness is 9 mm. The uterus is smooth in contour and has normal myometrial echogenicity. No visible fibroid. Adnexa: Both ovaries are visualized. There is normal color flow to the adnexa. There is no ovarian torsion. There is no pelvic ascites or fluid collection. . Right ovary measures 4 x 2 x 2 cm. Volume is 7 cc. Left ovary measures 2 x 1 x 2 cm. Volume is 3 cc US/US pelvic complete IMPRESSION: 9 mm thickened endometrial stripe in a postmenopausal woman this is abnormal. No ovarian torsion. Electronically signed by: Bob Ontiveros MD 08/23/2024 02:14 PM J[facility]ONATAN
[2024-08-23 11:36] VITALS: BP 127/63; PULSE 73; RESP 18; TEMP 37.1; O2SAT 98; BMI 25.9
--- NOTE | 2024-08-23 11:41 | ED_ITS ---
HPI - General Adult General Chief complaint: Vaginal Bleeding Stated complaint: Back pain Time Seen by Provider: 08/23/24 16:02 Related Data Previous Rx's ?Medication ?Instructions ?Recorded sumatriptan succinate 25 mg tablet See Rx Instructions PO .COMPLEX 04/15/23 (Imitrex) #14 tabs mirabegron 50 mg tablet,extended 50 mg PO DAILY #90 tabs 05/06/23 release 24 hr (Myrbetriq) cholecalciferol (vitamin D3) 50 50 mcg PO DAILY #90 tabs 06/22/23 mcg (2,000 unit) tablet albuterol sulfate 90 mcg/actuation 2 puff inhalation Q4-6H PRN 09/15/23 aerosol inhaler (Ventolin HFA) shortness of breath or wheezing #8.5 grams buspirone 15 mg tablet 15 mg PO TID 30 days #90 tabs 09/15/23 loratadine 10 mg tablet (Allergy 10 mg PO DAILY PRN allergy 09/15/23 Relief (loratadine)) symptoms 90 days #90 tabs ibuprofen 600 mg tablet 600 mg PO Q6H PRN pain #14 tabs 11/25/23 amitriptyline 10 mg tablet 10 mg PO BEDTIME 90 days #90 tabs 12/12/23 Kevzara 200 mg/1.14 mL 200 mg (1.14 mL) subcut Q2W #2.28 01/04/24 subcutaneous pen injector mL (sarilumab) medroxyprogesterone 10 mg tablet 10 mg PO DAILY 30 days #30 tabs 08/25/24 (Provera) doxycycline hyclate 100 mg capsule 100 mg PO BID 7 days #14 caps 08/26/24 Allergies Allergy/AdvReac Type Severity Reaction Status Date / Time Penicillins [PENICILLINS] Allergy Intermediate RASH Verified 08/25/24 10:36 adalimumab [Humira] Allergy Unknown rash Verified 08/25/24 10:36 methotrexate Allergy Unknown HIVES Verified 08/25/24 10:36 [facility] Past Medical History Medical History Abnormal Pap smear of cervix Dysmenorrhea Heavy menstrual bleeding Pelvic pain Enlarged uterus History of uterine fibroid Irregular menses Frequent UTI Bilateral nephrolithiasis Rheumatoid arthritis Surgical History History of back surgery H/O lithotripsy H/O tubal ligation Family History Family History Paternal Aunt Breast cancer Father Asthma Diabetes Mother Lupus Sister Lupus Epilepsy Social History Social History Household Members: None Housing: Apartment Are you a primary critical care physician assistant to a significant other at home: No Do you presently have visiting nurse or other home services: No Alcohol intake: never Patient Tobacco Use Status: Never used Tobacco e-Cigarette/Vaping Use: Never Used service: No Current occupational status: employed Current occupational exposures/hazards: No Cognitive needs: No Hearing needs: No Vision needs: No Physical Exam ED Vital Signs: Vital Signs - 24 hr 08/23/24 11:36 Temperature 98.7 F Pulse Rate 73 Respiratory Rate 18 Blood Pressure 127/63 Pulse Oximetry 98 Oxygen Delivery Method Room Air BMI result Body Mass Index 25.9 Course Course Course Narrative: This is a rapid medical exam performed by Allyssa Rahman NP: Additional HPI, ROS, PE not included below will be deferred to primary provider. Patient is a 49-year-old female presenting with complaint of lower back pain as well as heavy vaginal bleeding. States this is the second time within one month that she has had vaginal bleeding. Plan: labs, ua, u/s Medical Decision Making Lab Data 08/23/24 12:24 08/23/24 12:24 Labs: Lab Results 08/23/24 Range/Units 12:24 WBC 6.2 (4.8-10.8) X10*3/uL RBC 4.12 L (4.20-5.50) X10*6/uL Hgb 10.7 L (12.0-16.0) g/dl Hct 33.8 L (37.0-47.0) % MCV 82.0 (80.0-98.0) fL MCH 26.0 L (27.0-33.0) pg MCHC 31.7 (31.0-35.0) g/dl RDW 13.8 (11.0-16.0) % Plt Count 283 (160-400) X10*3/uL MPV 9.5 (9.4-12.3) fL Immature Gran % (Auto) 0.2 (0.0-0.4) % Neut % (Auto) 62.2 (45-73) % Lymph % (Auto) 25.9 (20-40) % [place] % (Auto) 10.4 (2-11) % Eos % (Auto) 1.0 (0-4) % Baso % (Auto) 0.3 (0-2) % Lymph # (Auto) 1.6 (1.2-4.9) X10*3/uL [place] # (Auto) 0.6 (0.1-1.2) X10*3/uL Eos # (Auto) 0.1 (0.0-0.4) X10*3/uL Baso # (Auto) 0.0 (0.0-0.2) X10*3/uL Abs Immat Gran (auto) 0.01 (0.00-0.03) X10*3/uL Absolute Neuts (auto) 3.9 (2.0-8.3) x10*3/uL Absolute Nucleated RBC 0.000 (0.0-0.012) X10*3/uL Nucleated RBC % (auto) 0.0 (0.0-0.2) /100WBC Sodium 137 (135-145) mmol/L Potassium 4.0 (3.3-5.1) mmol/L Chloride 106 (96-108) mmol/L Carbon Dioxide 22 (22-29) mmol/L Anion Gap 13 (12-20) BUN 11 (9-16) mg/dL Creatinine 0.72 (0.5-1.4) mg/dL Estim Creat Clear Calc 94.4 Estimated GFR > 60 Random Glucose 98 (60-115) mg/dL Calcium 9.4 (8.4-10.2) mg/dL Total Bilirubin 0.3 (0.0-1.0) mg/dL AST 26 (5-31) U/L ALT 21 (0-31) U/L Alkaline Phosphatase 183 H (39-117) U/L Total Protein 8.0 (6.5-8.0) g/dL Albumin 4.1 (3.5-5.0) g/dL Beta HCG, Quant < 2 mIU/mL Urine Color Yellow Urine Appearance Clear Urine pH 6.0 (5.0-9.0) Ur Specific [place] <= 1.005 (1.005-1.025) Urine Protein Negative (Neg-Trace) mg/dL Urine Glucose (UA) Negative (Negative) mg/dL Urine Ketones Negative (Negative) mg/dL Urine Blood Negative (Negative) Urine Nitrite Negative (Negative) Ur Leukocyte Esterase Negative (Negative) Discharge Plan Discharge Clinical Impression: Abnormal vaginal bleeding Patient Disposition: Home, Self-Care Instructions: Dysfunctional Uterine Bleeding (ED) Additional Instructions: Risk of malignancy exists. Worsening condition return to the ED Prescriptions: No Action sumatriptan succinate [Imitrex] 25 mg tablet See Rx Instructions .ROUTE .COMPLEX Qty: 14 0RF Rx Instructions: take 1 tab at onset of headache; if no relief may repeat 1 tab after at least 2 hrs; max = 4 tabs/24 hr cholecalciferol (vitamin D3) 50 mcg (2,000 unit) tablet 50 mcg PO DAILY Qty: 90 0RF amitriptyline 10 mg tablet 10 mg PO BEDTIME 90 Days Qty: 90 0RF Kevzara 200 mg/1.14 mL pen injector 200 mg subcut Q2W Qty: 2.28 2RF doxycycline hyclate 100 mg capsule 100 mg PO BID 7 Days Qty: 14 0RF ibuprofen 600 mg tablet 600 mg PO Q6H PRN (Reason: pain) Qty: 14 0RF albuterol sulfate [Ventolin HFA] 90 mcg/actuation HFA aerosol inhaler 2 puff inhalation Q4-6H PRN (Reason: shortness of breath or wheezing) Qty: 8.5 0RF loratadine [Allergy Relief (loratadine)] 10 mg tablet 10 mg PO DAILY PRN (Reason: allergy symptoms) 90 Days Qty: 90 1RF buspirone 15 mg tablet 15 mg PO TID 30 Days Qty: 90 2RF medroxyprogesterone [Provera] 10 mg tablet 10 mg PO DAILY 30 Days Qty: 30 0RF Rx Instructions: start Provera 1 tablet daily ciprofloxacin HCl 500 mg tablet 500 mg PO ONCE Qty: 1 0RF naproxen 500 mg tablet 500 mg PO ONCE Qty: 1 0RF lidocaine HCl 2 % jelly in applicator 10 ml intra-urethral ONCE Qty: 10 0RF Myrbetriq 50 mg tablet extended release 24 hr 50 mg PO DAILY Qty: 90 0RF Referrals: Smooth Mckoy MD [Physician] - 08/24/24 Interventions: ED Discharge Assessment Last Done: 08/23/24 16:42 Discharge Date/Time: 08/23/24 16:43 Print Language: Stateless
[2024-08-23 12:31] LABS: MANUAL DIFF FLAG NO
[2024-08-23 12:35] LABS: Appearance Urine Clear; Color Urine Yellow; Glucose Urine UA Negative (Negative); Leukocyte Esterase Urine Negative (Negative); Nitrite Urine Negative (Negative); Specific Gravity - Urine <= 1.005 (1.005-1.025); Urine Blood Negative (Negative); Urine Ketones Negative (Negative); Urine Protein Negative (Neg-Trace)
[2024-08-23 12:37] LABS: Basophils Percent Auto 0.3 % (0-2); Eosinophils Absolute Auto 0.1 X10*3/uL (0.0-0.4); Hematocrit 33.8 % (37.0-47.0); Hemoglobin 10.7 g/dl (12.0-16.0); Imm Gran Abs Auto 0.01 X10*3/uL (0.00-0.03); Imm Gran Pct Auto 0.2 % (0.0-0.4); Lymphocytes Absolute Auto 1.6 X10*3/uL (1.2-4.9); Lymphocytes Percent Auto 25.9 % (20-40); Mean Corpuscular HGB Conc 31.7 g/dl (31.0-35.0); Mean Platelet Volume 9.5 fL (9.4-12.3); Monocytes Absolute Auto 0.6 X10*3/uL (0.1-1.2); Monocytes Percent Auto 10.4 % (2-11); Neutrophils Absolute Auto 3.9 x10*3/uL (2.0-8.3); Neutrophils Percent Auto 62.2 % (45-73); Platelet Count 283 X10*3/uL (160-400); Red Blood Count 4.12 X10*6/uL (4.20-5.50); Red Cell Distribution Width 13.8 % (11.0-16.0); White Blood Count 6.2 X10*3/uL (4.8-10.8)
[2024-08-23 13:00] LABS: Alanine Aminotransferase 21 U/L (0-31); Albumin Level 4.1 g/dL (3.5-5.0); Alkaline Phosphatase 183 U/L (39-117); Anion Gap 13 (12-20); Aspartate Amino Transferase 26 U/L (5-31); Bilirubin Total 0.3 mg/dL (0.0-1.0); Blood Urea Nitrogen 11 mg/dL (9-16); Calcium 9.4 mg/dL (8.4-10.2); Carbon Dioxide 22 mmol/L (22-29); Chloride 106 mmol/L (96-108); Creatinine Clr Calc Pharmacy 94.4; Estimated Glomerular Filt Rate > 60; Glucose Random 98 mg/dL (60-115); Sodium 137 mmol/L (135-145)
[2024-08-23 13:09] LABS: HCG Quantitative < 2 mIU/mL
--- NOTE | 2024-08-23 16:08 | ED_ITS ---
HPI - Female Genitourinary General Chief complaint: Vaginal Bleeding Stated complaint: Back pain Time Seen by Provider: 08/23/24 16:02 History of Present Illness HPI Narrative: Patient is a 49-year-old female presents today with having more frequent menstruation. Been bleeding for the last 5 days. Soaking approximately 5 pads per day. There is some clots. There is no fever no chills. Patient from home. No nausea no vomiting no GI symptoms. No urinary symptoms. History of rheumatoid arthritis Related Data Previous Rx's ?Medication ?Instructions ?Recorded sumatriptan succinate 25 mg tablet See Rx Instructions PO .COMPLEX 04/15/23 (Imitrex) #14 tabs mirabegron 50 mg tablet,extended 50 mg PO DAILY #90 tabs 05/06/23 release 24 hr (Myrbetriq) cholecalciferol (vitamin D3) 50 50 mcg PO DAILY #90 tabs 06/22/23 mcg (2,000 unit) tablet albuterol sulfate 90 mcg/actuation 2 puff inhalation Q4-6H PRN 09/15/23 aerosol inhaler (Ventolin HFA) shortness of breath or wheezing #8.5 grams buspirone 15 mg tablet 15 mg PO TID 30 days #90 tabs 09/15/23 loratadine 10 mg tablet (Allergy 10 mg PO DAILY PRN allergy 09/15/23 Relief (loratadine)) symptoms 90 days #90 tabs ibuprofen 600 mg tablet 600 mg PO Q6H PRN pain #14 tabs 11/25/23 amitriptyline 10 mg tablet 10 mg PO BEDTIME 90 days #90 tabs 12/12/23 Kevzara 200 mg/1.14 mL 200 mg (1.14 mL) subcut Q2W #2.28 01/04/24 subcutaneous pen injector mL (sarilumab) Allergies Allergy/AdvReac Type Severity Reaction Status Date / Time Penicillins [PENICILLINS] Allergy Intermediate RASH Verified 08/23/24 11:38 adalimumab [Humira] Allergy Unknown rash Verified 08/23/24 11:38 methotrexate Allergy Unknown HIVES Verified 08/23/24 11:38 Review of Systems 2 Review of Systems: No fever no chills no chest pain. No bloody stool. No nausea no vomiting Yes all other systems are reviewed and are negative PMFSH Past Medical History Attestation statement: The following information was validated with the patient. Medical History Abnormal Pap smear of cervix Dysmenorrhea Heavy menstrual bleeding Pelvic pain Enlarged uterus History of uterine fibroid Irregular menses Frequent UTI Bilateral nephrolithiasis Rheumatoid arthritis Surgical History History of back surgery H/O lithotripsy H/O tubal ligation Family History Family History Paternal Aunt Breast cancer Father Asthma Diabetes Mother Lupus Sister Lupus Epilepsy Social History Social History Household Members: None Housing: Apartment Are you a primary careers counsellor to a significant other at home: No Do you presently have visiting nurse or other home services: No Alcohol intake: never Patient Tobacco Use Status: Never used Tobacco e-Cigarette/Vaping Use: Never Used service: No Current occupational status: employed Current occupational exposures/hazards: No Cognitive needs: No Hearing needs: No Vision needs: No Physical Exam 2 Vital Signs: Vital Signs: Last Vital Signs Temp 98.7 F 08/23/24 11:36 Pulse 73 08/23/24 11:36 Resp 18 08/23/24 11:36 BP 127/63 08/23/24 11:36 Pulse Ox 98 08/23/24 11:36 O2 Del Method Room Air 08/23/24 11:36 BMI result Body Mass Index 25.9 Appearance: Alert. Oriented X3. No acute distress. Eyes: Pupils equal, round and reactive to light. ENT: Pharynx normal. Neck: Normal inspection. Neck supple. No lymph nodes noted. No crepitus CVS: Normal heart rate and rhythm. Pulses normal. Normal S1 and S2 Respiratory: No respiratory distress. Breath sounds normal. No Wheezing. No rales Abdomen: Soft and nontender. No rigidity. No distention. good BS x4 Skin: Skin warm and dry. Normal skin color. Normal skin turgor. Extremities: No lower extremity edema. Neurovascular intact to all extremities. No Lacerations. No Rash Neuro: Oriented X 3. No motor deficit. No sensory deficit. Moving all extermities. No slurred speech Medical Decision Making Medical Decision Making MDM Narrative: Patient well appearing no acute distress. Hemoglobin is in the 10.5 range. This is more chronic in nature. Patient's test is negative. No evidence for related issue. An ultrasound was done. No gross mass was noted. No torsion was noted to explained to patient the risk of malignancy still exists. Needs to closely follow-up with OBGYN. Biopsy needed. Currently in stable condition. Patient in no distress. Hemoglobin is stable. Will discharge Differential Diagnosis Differential Diagnoses: The differential diagnosis associated with the presentation includes Menometrorrhagia, urinary tract infection, -related issue Admission/Observation Consideration of admission/observation: Escalation of care including admission/observation considered Considered admission but given patient's well appearance stable hemoglobin will have patient follow-up with OBGYN Lab Data [facility] Lab Attestation statement: I reviewed the patient's lab results. 08/23/24 12:24 08/23/24 12:24 Labs: Lab Results 08/23/24 Range/Units 12:24 WBC 6.2 (4.8-10.8) X10*3/uL RBC 4.12 L (4.20-5.50) X10*6/uL Hgb 10.7 L (12.0-16.0) g/dl Hct 33.8 L (37.0-47.0) % MCV 82.0 (80.0-98.0) fL MCH 26.0 L (27.0-33.0) pg MCHC 31.7 (31.0-35.0) g/dl RDW 13.8 (11.0-16.0) % Plt Count 283 (160-400) X10*3/uL MPV 9.5 (9.4-12.3) fL Immature Gran % (Auto) 0.2 (0.0-0.4) % Neut % (Auto) 62.2 (45-73) % Lymph % (Auto) 25.9 (20-40) % Winston % (Auto) 10.4 (2-11) % Eos % (Auto) 1.0 (0-4) % Baso % (Auto) 0.3 (0-2) % Lymph # (Auto) 1.6 (1.2-4.9) X10*3/uL Winston # (Auto) 0.6 (0.1-1.2) X10*3/uL Eos # (Auto) 0.1 (0.0-0.4) X10*3/uL Baso # (Auto) 0.0 (0.0-0.2) X10*3/uL Abs Immat Gran (auto) 0.01 (0.00-0.03) X10*3/uL Absolute Neuts (auto) 3.9 (2.0-8.3) x10*3/uL Absolute Nucleated RBC 0.000 (0.0-0.012) X10*3/uL Nucleated RBC % (auto) 0.0 (0.0-0.2) /100WBC Sodium 137 (135-145) mmol/L Potassium 4.0 (3.3-5.1) mmol/L Chloride 106 (96-108) mmol/L Carbon Dioxide 22 (22-29) mmol/L Anion Gap 13 (12-20) BUN 11 (9-16) mg/dL Creatinine 0.72 (0.5-1.4) mg/dL Estim Creat Clear Calc 94.4 Estimated GFR > 60 Random Glucose 98 (60-115) mg/dL Calcium 9.4 (8.4-10.2) mg/dL Total Bilirubin 0.3 (0.0-1.0) mg/dL AST 26 (5-31) U/L ALT 21 (0-31) U/L Alkaline Phosphatase 183 H (39-117) U/L Total Protein 8.0 (6.5-8.0) g/dL Albumin 4.1 (3.5-5.0) g/dL Beta HCG, Quant < 2 mIU/mL Urine Color Yellow Urine Appearance Clear Urine pH 6.0 (5.0-9.0) Ur Specific Arrington <= 1.005 (1.005-1.025) Urine Protein Negative (Neg-Trace) mg/dL Urine Glucose (UA) Negative (Negative) mg/dL Urine Ketones Negative (Negative) mg/dL Urine Blood Negative (Negative) Urine Nitrite Negative (Negative) Ur Leukocyte Esterase Negative (Negative) Radiology Impression Discussion of test interpretation with radiology: I have reviewed the radiologist's reading. Radiologist Impression: I reviewed radiology's reading of the pelvic ultrasound Discharge Plan Discharge Clinical Impression: Abnormal vaginal bleeding Patient Disposition: Home, Self-Care Instructions: Dysfunctional Uterine Bleeding (ED) Additional Instructions: Risk of malignancy exists. Worsening condition return to the ED Prescriptions: No Action sumatriptan succinate [Imitrex] 25 mg tablet See Rx Instructions .ROUTE .COMPLEX Qty: 14 0RF Rx Instructions: take 1 tab at onset of headache; if no relief may repeat 1 tab after at least 2 hrs; max = 4 tabs/24 hr cholecalciferol (vitamin D3) 50 mcg (2,000 unit) tablet 50 mcg PO DAILY Qty: 90 0RF amitriptyline 10 mg tablet 10 mg PO BEDTIME 90 Days Qty: 90 0RF Kevzara 200 mg/1.14 mL pen injector 200 mg subcut Q2W Qty: 2.28 2RF ibuprofen 600 mg tablet 600 mg PO Q6H PRN (Reason: pain) Qty: 14 0RF albuterol sulfate [Ventolin HFA] 90 mcg/actuation HFA aerosol inhaler 2 puff inhalation Q4-6H PRN (Reason: shortness of breath or wheezing) Qty: 8.5 0RF loratadine [Allergy Relief (loratadine)] 10 mg tablet 10 mg PO DAILY PRN (Reason: allergy symptoms) 90 Days Qty: 90 1RF buspirone 15 mg tablet 15 mg PO TID 30 Days Qty: 90 2RF ciprofloxacin HCl 500 mg tablet 500 mg PO ONCE Qty: 1 0RF naproxen 500 mg tablet 500 mg PO ONCE Qty: 1 0RF lidocaine HCl 2 % jelly in applicator 10 ml intra-urethral ONCE Qty: 10 0RF Myrbetriq 50 mg tablet extended release 24 hr 50 mg PO DAILY Qty: 90 0RF Referrals: Smooth Mckoy MD [Physician] - 08/24/24 Print Language: Brazilian
[2024-08-23 16:42] VITALS: BP 124/75; PULSE 74; RESP 16; TEMP 37; O2SAT 100
== END 2024-08-23 16:43 | disposition home or self-care (01) ==
PROVIDERS: Registered Nurse Emergency; Emergency Provider Emergency Medicine Emergency Medical Services; PCP Internal Medicine
DX: N92.0 Excessive and frequent menstruation with regular cycle (principal); N93.9 Abnormal uterine and vaginal bleeding, unspecified; M54.50 Low back pain, unspecified; Z79.899 Other long term (current) drug therapy
CPT/HCPCS: 36415; 76856; 80053; 81003; 84702; 85025; 99282; 99284

== ENCOUNTER 2024-08-25 09:47 | Outpatient (REF) | payer MEDICAID, SELFPAY ==
[2024-08-25 11:56] LABS: Hematocrit 34.1 % (37.0-47.0); Mean Corpuscular HGB Conc 32.3 g/dl (31.0-35.0); Mean Corpuscular Hemoglobin 26.1 pg (27.0-33.0); Mean Platelet Volume 9.2 fL (9.4-12.3); Platelet Count 323 X10*3/uL (160-400); Red Blood Count 4.21 X10*6/uL (4.20-5.50); Red Cell Distribution Width 13.7 % (11.0-16.0)
[2024-08-25 12:49] LABS: HCG Quantitative < 2 mIU/mL; TSH reflex Free T4 1.48 uIU/mL (0.32-4.0)
[2024-08-25 13:29] LABS: HPV 16,18/45 See PAP report
[2024-08-25 17:20] LABS: CT PCR DETECTED (Not Detect.); NG PCR NOT DETECTED (Not Detect.)
[2024-08-26 07:54] LABS: Follicle Stimulating Hormone 2.9 mIU/mL; Lutenizing Hormone 1.7 mIU/mL; Prolactin 7.1 ng/mL
== END 2024-08-25 09:48 | disposition home or self-care (01) ==
LOC: HO.LNP 09:47
PROVIDERS: PCP Internal Medicine; Visit Provider Obstetrics & Gynecology
DX: N93.9 Abnormal uterine and vaginal bleeding, unspecified (principal); Z12.72 Encounter for screening for malignant neoplasm of vagina; Z11.51 Encounter for screening for human papillomavirus (HPV)
CPT/HCPCS: 83001; 83002; 84146; 84443; 84702; 85027; 87491; 87591; 87624; 88175; 88305; 99202

== ENCOUNTER 2024-08-25 09:47 | Outpatient (AMB) | payer MEDICAID, SELFPAY ==
--- NOTE | 2024-08-25 10:32 | A.OFFVIS_ITS ---
Vital Signs 08/25/24 10:35 Height 5 ft 6 in Weight 158 lb 11.725 oz BMI 25.6 BP 100/62 Intake Visit Reasons: ER Follow up Shipping And Receiving Material Handler Required: Yes Shipping And Receiving Material Handler Language: Residential Gas Heat Technician Services: Shipping And Receiving Material Handler Present (in person) Shipping And Receiving Material Handler Name: Rosy WASHINGTON Information Interpreted: non-clinical & clinical Senior Business Objects Developer: Senior Business Objects Developer Present (Rosy WASHINGTON) Accompanied by: Self / Same As Patient Allergies Penicillins [PENICILLINS] Allergy (Intermediate, Verified 08/25/24 10:36) RASH adalimumab [Humira] Allergy (Unknown, Verified 08/25/24 10:36) rash methotrexate Allergy (Unknown, Verified 08/25/24 10:36) HIVES HPI Comments Details: Presenting 2 days post emergency room visit for heavy vaginal bleeding. The following workup was done in the emergency room; H&H 10.7/33.8 HCG less than 2 Pelvic ultrasound showed the following: Uterus: The uterus is anteverted and measures 11 x 5 x 9 cm. No gross solid or cystic lesions The double wall endometrial thickness is 9 mm. The uterus is smooth in contour and has normal myometrial echogenicity. No visible fibroid. Adnexa: Both ovaries are visualized. There is normal color flow to the adnexa. There is no ovarian torsion. There is no pelvic ascites or fluid collection. . Right ovary measures 4 x 2 x 2 cm. Volume is 7 cc. Left ovary measures 2 x 1 x 2 cm. Volume is 3 cc Last co testing in 03/10 was negative with endometrial cells present, EMB was negative for endometrial hyperplasia or malignancy Last mammogram was in 02/06 was BI-RADS 2 [facility] Medical History Abnormal Pap smear of cervix Dysmenorrhea Heavy menstrual bleeding Pelvic pain Enlarged uterus History of uterine fibroid Irregular menses Frequent UTI Bilateral nephrolithiasis Rheumatoid arthritis Surgical History History of back surgery H/O lithotripsy H/O tubal ligation Family History Paternal Aunt Breast cancer Father Asthma Diabetes Mother Lupus Sister Lupus Epilepsy Social History Household Members: None Both parents involved: No Caregiver staying overnight: No Housing: Apartment Are you a primary acute care nurse to a significant other at home: No Do you presently have visiting nurse or other home services: No 75 years or older and lives alone: No Alcohol intake: never Patient Tobacco Use Status: Never used Tobacco e-Cigarette/Vaping Use: Never Used service: No Current occupational status: employed Current occupational exposures/hazards: No Cognitive needs: No Hearing needs: No Vision needs: No Female Reproductive History Menstrual Age of Menarche: 9 Review of Systems Const All systems reviewed & are unremarkable except as noted in HPI and below Card Reports as per HPI Resp Reports as per HPI GI Reports as per HPI and Reports no additional complaints Reports as per HPI Physical Exam Vital Signs: Last Vital Signs BP 100/62 08/25/24 10:35 BMI result Body Mass Index 25.6 Const General: cooperative, healthy appearing and comfortable Chest Chest palpation & inspection: normal inspection of the chest and normal palpation of entire chest wall Breast/axilla inspection: normal inspection of the breasts and normal inspection of the axillae Breast/axilla palpation: normal palpation of the breasts, normal palpation of the axillae and no axillary lymphadenopathy Resp Effort & Inspection: normal respiratory effort Auscultation: clear to auscultation bilaterally Percussion: percussion normal Cardio Palpation: normal PMI Rate: regular rate Rhythm: regular rhythm Heart sounds: no murmurs and no rubs Peripheral pulses: Peripheral pulses 2+ throughout GI Inspection: Yes normal to inspection Palpation (GI): Soft to palpation, nontender, no guarding, not rigid and No hepatosplenomegaly present Percussion: Yes normal to percussion Auscultation: normal bowel sounds Rectal Exam - Female: deferred General: Yes bladder normal to palpation External Female Exam: No lesion Speculum Exam - Vagina: normal appearance of the vagina, normal palpation, normal vaginal discharge, not erythematous and other (Blood per vagina, no active bleeding) Speculum Exam - Cervix: normal appearance of the cervix and normal palpation Bimanual exam- vagina & uterus: normal bimanual exam, normal palpation, uterine size normal, bladder normal to palpation, consistency normal and normal palpation Bimanual Exam- Adnexa, other: normal adnexae, no masses and no tenderness Assessment & Plan Assessment & Plan (1) Abnormal uterine bleeding (AUB): Comment: With anemia Code(s): N93.9 - Abnormal uterine and vaginal bleeding, unspecified Category: Medical Plan: Screening mammogram leonarda. Co testing done, GC and chlamydia taken CBC, TSH, prolactin, FSH/LH, HCGordered. Discussed with the patient the different causes of abnormal bleeding including thyroid disorders, uterine and ovarian pathology, endometrial hyperplasia, carcinoma and other potential causes. Discussed with the patient the work up including CBC (to r/o anemia), TSH, prolactin, pelvic Ultrasound, endometrial biopsy to r/o endometrial pathology. EMB done, see procedure note. Discussed with the patient the options of treatment including but not limited to BCP's, Progesterone, Mirena IUD. All pros, cons, risks and benefits of each option were discussed with the patient and the patient decided to go ahead with cyclic Provera, so a more detailed discussion re: Progesterone treatment including mechanism of action, benefits (regular menses, endometrial protection form unopposed estrogen and reduction in the risk of endometrial hyperplasia and/or cancer ...), risks (Thrombosis, mood changes, weight gain, breast soreness, ? increased breast ca, others). Instructions were given to use a back- up method for contraception take the medication 1 tablet daily for the coming 30 days, schedule mammogram as soon as possible and a follow-up appointment within 2 weeks; patient verbalized understanding and agreed with the plan. Orders: Orders TSH reflex Free T4 Today N93.9 - Abnormal uterine and vaginal bleeding, unspecified Prolactin Today N93.9 - Abnormal uterine and vaginal bleeding, unspecified Lutenizing Hormone Today N93.9 - Abnormal uterine and vaginal bleeding, unspecified Complete Blood Count no Diff Today N93.9 - Abnormal uterine and vaginal bleeding, unspecified MM screening mammo BI Today Z12.31 - Encounter for screening mammogram for malignant neoplasm of breast HCG Quantitative Today N93.9 - Abnormal uterine and vaginal bleeding, unspecified Follicle Stimulating Hormone Today N93.9 - Abnormal uterine and vaginal bleeding, unspecified Medications: New medroxyprogesterone (Provera) start Provera 1 tablet daily 10 mg PO DAILY 30 days 30 tabs 0RF Coding Level of Care Code New Pt Level 3 (91943) Diagnoses Abnormal uterine bleeding (AUB) N93.9
[2024-08-25 10:35] VITALS: BP 100/62; BMI 25.6
== END 2024-08-25 10:56 | disposition home or self-care (01) ==
LOC: HO.HWS 09:47
PROVIDERS: PCP Internal Medicine; Visit Provider Obstetrics & Gynecology
DX: N93.9 Abnormal uterine and vaginal bleeding, unspecified (principal)
CPT/HCPCS: 99203

== ENCOUNTER 2024-08-25 11:04 | Outpatient (REF) | payer MEDICAID, SELFPAY | END 2024-08-25 11:05 | disposition home or self-care (01) | LOC: HO.LAB 11:04 | PROVIDERS: PCP Internal Medicine; Visit Provider Obstetrics & Gynecology | DX: Z13.89 Encounter for screening for other disorder (principal) ==

== ENCOUNTER 2024-08-26 13:05 | Outpatient (REF) | payer OTHER, SELFPAY ==
[2024-08-27 03:35] LABS: Syphilis Screen Nonreactive (Nonreactive)
[2024-08-27 04:14] LABS: HBsAGNum1 0.31 S/CO (0.00-0.99); HIV AB/AG Nonreactive (Nonreactive); HIV Num 1 0.05 S/CO (0.00-0.99); Hepatitis B Surface Antigen Negative (Negative); ~HepC Num1 0.17 S/CO (0.00-0.79); ~Hepatitis C Antibody Nonreactive (Nonreactive)
== END 2024-08-26 13:06 | disposition home or self-care (01) ==
LOC: HO.LAB 13:05
PROVIDERS: PCP Internal Medicine; Visit Provider Obstetrics & Gynecology
DX: Z20.2 Contact with and (suspected) exposure to infections with a predominantly sexual mode of transmission (principal)
CPT/HCPCS: 36415; 86780; 86803; 87340; 87389

== ENCOUNTER 2024-09-08 10:56 | Outpatient (AMB) | payer OTHER, SELFPAY ==
--- NOTE | 2024-09-08 11:17 | MHC.OFFVIS ---
Vital Signs 09/08/24 11:24 BP 122/74 Intake Visit Reasons: EARLINE/need to sign emb consent Senior Oracle Adf Developer: Senior Oracle Adf Developer Present (Maria D) Accompanied by: Self / Same As Patient Allergies Penicillins [PENICILLINS] Allergy (Intermediate, Verified 09/08/24 11:25) RASH adalimumab [Humira] Allergy (Unknown, Verified 09/08/24 11:25) rash methotrexate Allergy (Unknown, Verified 09/08/24 11:25) HIVES HPI Comments Details: The patient is presenting for a test of cure. The patient took the antibiotics course; she informed her partner who was treated too. The patient reports no intercourse since then. The following workup was done.: H&H= .1 TSH, prolactin, hCG, GC and chlamydia were negative. Endometrial biopsy pathology showed the following: Endometrium, biopsy: - Chronic endometritis associated with polypoid secretory endometrium. - Fragments of polypoid endocervical tissue. - No atypia identified. Co testing was done was negative. Mammogram not done yet Pelvic ultrasound showed the following: IMPRESSION: 9 mm thickened endometrial stripe in a postmenopausal woman this is abnormal. No ovarian torsion. [facility] Medical History Abnormal Pap smear of cervix Dysmenorrhea Heavy menstrual bleeding Pelvic pain Enlarged uterus History of uterine fibroid Irregular menses Frequent UTI Bilateral nephrolithiasis Rheumatoid arthritis Surgical History History of back surgery H/O lithotripsy H/O tubal ligation Family History Paternal Aunt Breast cancer Father Asthma Diabetes Mother Lupus Sister Lupus Epilepsy Social History Household Members: None Both parents involved: No Caregiver staying overnight: No Housing: Apartment Are you a primary resident caregiver to a significant other at home: No Do you presently have visiting nurse or other home services: No 75 years or older and lives alone: No Alcohol intake: never Patient Tobacco Use Status: Never used Tobacco e-Cigarette/Vaping Use: Never Used service: No Current occupational status: employed Current occupational exposures/hazards: No Cognitive needs: No Hearing needs: No Vision needs: No Female Reproductive History Menstrual Age of Menarche: 9 Review of Systems Const All systems reviewed & are unremarkable except as noted in HPI and below Reports as per HPI and Reports no additional complaints GI Reports no additional complaints Reports no additional complaints Physical Exam Vital Signs: Last Vital Signs BP 122/74 09/08/24 11:24 General: Yes no CVA tenderness External Female Exam: normal external appearance and normal appearance of the urethra Speculum Exam - Vagina: normal appearance of the vagina, normal palpation, no lesions and no masses Speculum Exam - Cervix: normal appearance of the cervix, normal palpation, no lesions, no masses and nontender Bimanual exam- vagina & uterus: normal bimanual exam, normal palpation, uterine size normal, normal palpation, uterine shape normal, No Cervical tenderness present and non-tender Bimanual Exam- Adnexa, other: normal adnexae Back/Spine/Pelvis Back: no CVA tenderness Assessment & Plan Assessment & Plan (1) Abnormal uterine bleeding (AUB): Comment: With anemia Code(s): N93.9 - Abnormal uterine and vaginal bleeding, unspecified Category: Medical Plan: Discussed with the patient the results of the work up done and options of treatment including Lysteda, BCP's, Mirena IUD, endometrial ablation and hysterectomy. All pros, cons, risks and benefits if each option was discussed with the patient and the patient decided to think about it and get back to us. All questions answered the patient verbalized understanding. (2) Chlamydia: Comment: For EARLINE Code(s): A74.9 - Chlamydial infection, unspecified Category: Medical Plan: GC/CT with BV permanent collected. Will check the results and treat accordingly Orders: Orders CT NG by PCR Today Z20.2 - Contact with and (suspected) exposure to infections with a predominantly sexual mode of transmission Bacterial Vaginosis Panel Today Z20.2 - Contact with and (suspected) exposure to infections with a predominantly sexual mode of transmission Coding Level of Care Code Est Pt Level 3 (91913) Diagnoses Abnormal uterine bleeding (AUB) N93.9 Chlamydia A74.9
[2024-09-08 11:24] VITALS: BP 122/74
== END 2024-09-08 11:52 | disposition home or self-care (01) ==
LOC: HO.HWS 10:56
PROVIDERS: PCP Internal Medicine; Visit Provider Obstetrics & Gynecology
DX: N93.9 Abnormal uterine and vaginal bleeding, unspecified (principal); A74.9 Chlamydial infection, unspecified
CPT/HCPCS: 99213

== ENCOUNTER 2024-09-08 10:56 | Outpatient (REF) | payer OTHER, SELFPAY ==
[2024-09-09 11:55] LABS: Bacterial Vaginosis PCR NEGATIVE (Negative); Candida Group PCR NOT DETECTED (Not Detect); Candida glab krusei PCR NOT DETECTED (Not Detect); Trichomonas vaginalis PCR NOT DETECTED (Not Detect)
[2024-09-09 17:37] LABS: CT PCR NOT DETECTED (Not Detect.); NG PCR NOT DETECTED (Not Detect.)
== END 2024-09-08 10:57 | disposition home or self-care (01) ==
LOC: HO.LNP 10:56
PROVIDERS: PCP Internal Medicine; Visit Provider Obstetrics & Gynecology
DX: Z20.2 Contact with and (suspected) exposure to infections with a predominantly sexual mode of transmission (principal); N93.9 Abnormal uterine and vaginal bleeding, unspecified; A74.9 Chlamydial infection, unspecified; Z11.3 Encounter for screening for infections with a predominantly sexual mode of transmission
CPT/HCPCS: 0352U; 87491; 87591; 99212; 99459

== ENCOUNTER 2024-09-21 15:49 | Outpatient (AMB) | payer OTHER, SELFPAY ==
--- NOTE | 2024-09-21 15:57 | MHC.PC.OV ---
Vital Signs 09/21/24 15:58 Height 5 ft 6 in Weight 164 lb BMI 26.5 BP 132/72 Blood Pressure Location Lt brachial Position Sitting Intake Visit Reasons: Annual exam Intake Note: Patient here for a physical exam Geriatric Case Manager Required: No Accompanied by: Self / Same As Patient Allergies Penicillins [PENICILLINS] Allergy (Intermediate, Verified 09/21/24 16:38) RASH adalimumab [Humira] Allergy (Unknown, Verified 09/21/24 16:38) rash methotrexate Allergy (Unknown, Verified 09/21/24 16:38) HIVES Medication List - Last Reconciled 09/21/24 by Bella Watts MD albuterol sulfate 90 mcg/actuation (Ventolin HFA) 2 puffs inhalation Q4-6H PRN amitriptyline 10 mg PO BEDTIME 90 days buspirone 15 mg PO TID 30 days cholecalciferol (vitamin D3) 50 mcg PO DAILY ferrous sulfate 325 mg PO DAILY 90 days ibuprofen 600 mg PO Q6H PRN Kevzara (sarilumab) 200 mg (1.14 mL) subcut Q2W NS loratadine (Allergy Relief (loratadine)) 10 mg PO DAILY PRN 90 days medroxyprogesterone (Provera) 10 mg PO DAILY 30 days mirabegron ER (Myrbetriq) 50 mg PO DAILY sumatriptan succinate (Imitrex) take 1 tab at onset of headache; if no relief may repeat 1 tab after at least 2 hrs; max = 4 tabs/24 hr Tobacco use date assessed: 09/21/24 Dental Screening Dental Screen Date: 09/21/24 Did you have a dental visit in the last 12 months?: No Did you have a dental problem in the last 6 months where you did not have access to dental care?: No Was dental information given to patient?: Patient has dentist HPI HPI Comments History of Present Illness Details The patient is a 49-year-old female presenting for her physical exam. She has concerns regarding generalized pain from fibromyalgia and rheumatoid arthritis. She reports longstanding joint and muscle pain leading to fatigue and dizziness upon standing. The patient indicates migraine complications have improved with medication. She has recurrent vaginal hemorrhage and subsequent iron deficiency anemia, experiencing dizziness and fatigue, which were unresponsive to prior evaluations at the hospital. Current management includes Amitriptyline for depression, Buspirone twice daily for anxiety, Albuterol as needed, with recent exacerbations of arthritis requiring additional intervention. Repeated hemorrhage episodes have escalated to the necessity for Provera, with Loratadine prescribed for allergic symptoms. In 2020, mammography was conducted. Plans are set for repeat mammography and overdue colonoscopy screenings. She has a notable family history of lupus, with prior surgeries including tubal ligation and back surgery, and history of lithotripsy. - Mammogram scheduled. - Colonoscopy required and will be refer through open access. - Cholesterol and complete blood work ordered. - Rheumatology consultation for rheumatoid arthritis management. - Scheduled follow-up for routine health maintenance. [facility] Medical History (Updated 09/21/24 @ 16:50 by Bella Watts MD) Abnormal Pap smear of cervix Dysmenorrhea Heavy menstrual bleeding Pelvic pain Enlarged uterus History of uterine fibroid Irregular menses Frequent UTI Bilateral nephrolithiasis Rheumatoid arthritis Surgical History History of back surgery H/O lithotripsy H/O tubal ligation Family History Paternal Aunt Breast cancer Father Asthma Diabetes Mother Lupus Sister Lupus Epilepsy Social History Household Members: None Both parents involved: No Caregiver staying overnight: No Housing: Apartment Are you a primary care director to a significant other at home: No Do you presently have visiting nurse or other home services: No 75 years or older and lives alone: No Alcohol intake: never Patient Tobacco Use Status: Never used Tobacco e-Cigarette/Vaping Use: Never Used Second Hand Smoke Exposure: No service: No Current occupational status: employed Current occupational exposures/hazards: No Cognitive needs: No Hearing needs: No Vision needs: No Female Reproductive History Menstrual Age of Menarche: 9 Questionnaire PHQ-9 Over the last 2 weeks, how often have you been bothered by any of the following problems? 1. Little interest or pleasure in doing things: not at all 2. Feeling down, depressed, or hopeless: several days 3. Trouble falling or staying asleep, or sleeping too much: nearly every day 4. Feeling tired or having little energy: nearly every day 5. Poor appetite or overeating: not at all 6. Feeling bad about yourself - or that you are a failure or have let yourself or your family down: not at all 7. Trouble concentrating on things, such as reading the newspaper or watching television: not at all 8. Moving or speaking so slowly that other people could have noticed. Or the opposite - being so fidgety or restless that you have been moving around a lot more than usual: not at all 9. Thoughts that you would be better off or of hurting yourself in some way: not at all Total score: 7 Depression Screening Interpretation: Positive Depression Screening Follow-up: Existing condition, In treatment and Follow-up Visit Requested Depression Screening Done: Yes 77969 - PHQ-9 Billing: Yes Source: Developed by Drs. Jose Martin Crabtree, Jessica Fischer, Saad Etienne and colleagues, with an educational kylee from [employer]. Thrive Questionnaire Date Thrive assessed: 09/21/24 I am a: Patient What is your living situation today?: I choose not to answer this question Within the past 12 months, did the food you bought not last and you didn't have the money to get more?: I choose not to answer this question Within the past 12 months, did you worry whether your food would run out before you got money to buy more?: I choose not to answer this question Do you have trouble paying for medicines?: No Do you have trouble getting transportation to medical appointments?: No Do you have trouble paying your heating and electricity bill?: No Do you have trouble taking care of your child, family member or friend?: No Do you have trouble with day-to-day activities such as bathing, preparing meals, shopping, managing finances, etc.?: No Are you currently unemployed and looking for a job?: No Are you interested in more education?: No Please select the resources that you would like help with: None Currently or been in a relationship where the following occur: I choose not to answer THRIVE Score: 0 AUDIT C Alcohol Use Questionnaire (AUDIT-C) 1. How often do you have a drink containing alcohol?: Never Total Score: 0 Score Reviewed/Action Taken: No CHULA-7 AMB Questionnaire CHULA-7 Date CHULA - 7 assessed: 09/21/24 Feeling nervous, anxious, or on edge: 1 = Several days Not being able to stop or control worryin = Not at all Worrying too much about different things: 1 = Several days Trouble relaxin = Not at all Being so restless that it is hard to sit still: 0 = Not at all Becoming easily annoyed or irritable: 0 = Not at all Feeling afraid as if something awful might happen: 0 = Not at all Total CHULA-7 score (0-4 normal; 5-9 mild; 10-14 moderate; 15-21 severe): 2 Source: Developed by Drs. Jose Martin Crabtree, Jessica Fischer, Saad Etienne and colleagues, with an educational kylee from [employer]. CHULA-7 Assessment Billing CHULA-7 Assessment Tool: CHULA-7 Assessment 91200 Review of Systems Const All systems reviewed & are unremarkable except as noted in HPI and below Card Denies chest pain at rest, Denies chest pain with activity, Denies edema, Denies irregular heart rhythm, Denies claudication, Denies dyspnea, Denies dyspnea on exertion, Denies orthopnea, Denies paroxysmal nocturnal dyspnea and Denies slow heart rate Resp Denies cough, Denies dyspnea and Denies dyspnea on exertion GI Denies abdominal pain, Denies change in bowel habits, Denies excessive flatus, Denies nausea and Denies vomiting Denies urinary incontinence, Denies urinary hesitancy and Denies urinary urgency Musc Denies abnormal gait, Denies atrophy, Denies deformity and Denies limited range of motion Skin/Breast Denies bleeding lesions, Denies changing lesions and Denies rash Neuro Denies abnormal gait and Denies lack of coordination Physical exam (Primary Care) Vital Signs: Last Vital Signs BP 132/72 09/21/24 15:58 BMI result Body Mass Index 26.5 Tobacco/Smoking Status: Tobacco use Status Tobacco use date assessed 09/21/24 09/21/24 16:04 Patient Tobacco Use Status Never used Tobacco 09/21/24 16:02 e-Cigarette/Vaping Use Never Used 09/21/24 16:02 PHQ-9: PHQ-9 Score PHQ-9: Total score 7 09/21/24 16:45 Depression Screening Interpretation: Positive Depression Screening Follow-up: Existing condition, In treatment and Follow-up Visit Requested Thrive Assessment: Date of Thrive Assessment Date Thrive assessed 09/21/24 09/21/24 16:06 Currently or been in a relationship where the following occur: I choose not to answer HENMT Head: Yes normal to inspection, Yes normocephalic and Yes atraumatic Ears: external ears normal Eyes General: appearance normal, both eyes and all related structures Eyelids: Yes eyelids normal Conjunctivae: conjunctivae normal Neck Neck: Yes normal visual inspection and Yes supple Resp Effort & Inspection: normal respiratory effort Auscultation: clear to auscultation bilaterally Cardio Jugular venous distension: no JVD Rate: regular rate Rhythm: regular rhythm Heart sounds: S1 normal heart sound present and S2 normal heart sound present GI Inspection: Yes normal to inspection Palpation (GI): Soft to palpation and nontender Auscultation: normal bowel sounds Skin General skin exam: no rashes or lesions noted Neuro General: no focal motor deficits Extrem General: Yes full ROM Psych Appearance: grossly normal Office Procedures Flu Questionnaire Does the patient have a severe egg allergy?: No Immunizations Fluarix Triv [id number] (PF) 45 mcg (15 mcg x 3)/0.5 mL IM syringe Performing Provider: Bella Watts MD [facility] [place] [facility] Documented (not given) by: PADMINI Shaw on 09/21/24 16:05 Reason Not Given: Patient Refused Coding Level of Care Code Est Pt Prev Care 40-64y(12192) Diagnoses Physical exam Z00.00 Mild major depression F32.0 Seropositive rheumatoid arthritis M05.9 Additional Codes CHULA-7 Assessment Billing - CHULA-7 Assessment Tool: CHULA-7 Assessment 10700 ([id number]) PHQ-9 - 06238 - PHQ-9 Billing: Yes ([id number]) Time Spent (min) 32 Assessment & Plan Assessment & Plan (1) Physical exam: Code(s): Z00.00 - Encounter for general adult medical examination without abnormal findings Category: Medical (2) Mild major depression: Code(s): F32.0 - Major depressive disorder, single episode, mild Category: Medical (3) Seropositive rheumatoid arthritis: Comment: (RF++ CCP++) diagnosed 2017 Failed MTX (dizzniess and synocopal episode) could not tolerate Arava (dizziness). Failed Humira (allergic rxn with rash). Off Humira since Sep 2018 due to allergic reaction. On Enbrel since Nov 2018 but developed skin reaction switched to Olumiant in June 2019. Olumiant was ineffective so she was switched to Kevzara in October 2019 until October 2021 -patient self stop the medication Code(s): M05.9 - Rheumatoid arthritis with rheumatoid factor, unspecified Category: Medical Plan - Rheumatoid Arthritis: Scheduled follow-up with mold maker plastic molds; evaluate additional medications for symptom control. - Fibromyalgia: Continue current pain management strategy; assess magnesium levels. - Depression and Anxiety: Continue current medication; monitor symptoms and adjust treatment as needed. - Vitamin D and Iron Deficiency: Continue supplementation; monitor blood levels regularly. - Vaginal Hemorrhage: Schedule gynecological examination; consider hormone regulation. - Migraine Management: Refill and continue prescribed medications for effective management. - Health Maintenance: Schedule mammography and colonoscopy; conduct fasting labs for cholesterol and other metabolic parameters. Patient was informed and verbally consented to the use of an ambient scribe for clinic note documentation during this visit. In our discussion, I emphasized the importance of maintaining her current regimen for managing arthritis while considering supplements to manage her deficiency states. We reviewed the necessity of continuing mammogram screenings and scheduling a colonoscopy due to prior gaps in screening history. I explained the relevance of regular monitoring for both depression and anxiety while continuing current medication therapies. Orders: Orders Lipid Panel Today E78.5 - Hyperlipidemia, unspecified, Z00.00 - Encounter for general adult medical examination without abnormal findings Comprehensive [place]. Panel Fast Today Z00.00 - Encounter for general adult medical examination without abnormal findings Influenza [id number] Immunization Today Z23 - Encounter for immunization MM tomosynthesis screening BI Today Z12.31 - Encounter for screening mammogram for malignant neoplasm of breast Magnesium Today R25.2 - Cramp and spasm Medications: Refilled sumatriptan succinate (Imitrex) take 1 tab at onset of headache; if no relief may repeat 1 tab after at least 2 hrs; max = 4 tabs/24 hr 14 tabs 0RF G43.909 - Migraine, unspecified, not intractable, without status migrainosus amitriptyline 10 mg PO BEDTIME 90 tabs 0RF 90 days F32.0 - Major depressive disorder, single episode, mild albuterol sulfate 90 mcg/actuation (Ventolin HFA) 2 puffs inhalation Q4-6H PRN 8.5 grams 0RF shortness of breath or wheezing J30.2 - Other seasonal allergic rhinitis mirabegron ER (Myrbetriq) 50 mg PO DAILY 90 tabs 0RF M25.50 - Pain in unspecified joint loratadine (Allergy Relief (loratadine)) 10 mg PO DAILY PRN 90 tabs 1RF allergy symptoms 90 days M25.50 - Pain in unspecified joint ibuprofen 600 mg PO Q6H PRN 14 tabs 0RF pain M25.50 - Pain in unspecified joint cholecalciferol (vitamin D3) 50 mcg PO DAILY 90 tabs 0RF R79.89 - Other specified abnormal findings of blood chemistry buspirone 15 mg PO TID 90 tabs 2RF 30 days M25.50 - Pain in unspecified joint Discontinued Kevzara (sarilumab) Discontinued Reason: Patient Completed Course 200 mg (1.14 mL) subcut Q2W 2.28 mL 2RF NS Patient Instructions: - Maintain current medications and supplements as prescribed. - Follow up with [employer] for arthritis assessment. - Complete scheduled mammography and colonoscopy. - Proceed with fasting labs for cholesterol check. - Return for scheduled follow-ups and report any exacerbated symptoms immediately.
[2024-09-21 15:58] VITALS: BP 132/72; BMI 26.5
== END 2024-09-21 16:50 | disposition home or self-care (01) ==
PROVIDERS: PCP Internal Medicine; Visit Provider Internal Medicine
DX: Z00.00 Encounter for general adult medical examination without abnormal findings (principal); F32.0 Major depressive disorder, single episode, mild; M05.9 Rheumatoid arthritis with rheumatoid factor, unspecified; Z23 Encounter for immunization

== ENCOUNTER → 2024-09-21 15:49 | Outpatient (BNVA) | payer OTHER, SELFPAY | PROVIDERS: PCP Internal Medicine; Visit Provider Internal Medicine | DX: Z00.00 Encounter for general adult medical examination without abnormal findings (principal); F32.0 Major depressive disorder, single episode, mild; M05.9 Rheumatoid arthritis with rheumatoid factor, unspecified | CPT/HCPCS: 90471; 96127; 99396 ==

== ENCOUNTER 2024-10-17 05:16 | Emergency (ER) | payer OTHER, SELFPAY ==
[2024-10-17 05:22] VITALS: BP 138/80; PULSE 102; RESP 16; TEMP 37.4; O2SAT 98; BMI 25.5
[2024-10-17 05:41] LABS: Eosinophils Percent Auto 0.2 % (0-4); Hematocrit 33.4 % (37.0-47.0); Hemoglobin 10.5 g/dl (12.0-16.0); Imm Gran Abs Auto 0.03 X10*3/uL (0.00-0.03); Imm Gran Pct Auto 0.5 % (0.0-0.4); Lymphocytes Absolute Auto 0.6 X10*3/uL (1.2-4.9); MANUAL DIFF FLAG NO; Mean Corpuscular HGB Conc 31.4 g/dl (31.0-35.0); Mean Corpuscular Hemoglobin 24.1 pg (27.0-33.0); Mean Corpuscular Volume 76.8 fL (80.0-98.0); Mean Platelet Volume 9.1 fL (9.4-12.3); Monocytes Absolute Auto 0.7 X10*3/uL (0.1-1.2); Monocytes Percent Auto 11.7 % (2-11); Neutrophils Absolute Auto 4.5 x10*3/uL (2.0-8.3); Neutrophils Percent Auto 77.6 % (45-73); Platelet Count 282 X10*3/uL (160-400); Red Blood Count 4.35 X10*6/uL (4.20-5.50); White Blood Count 5.8 X10*3/uL (4.8-10.8)
[2024-10-17 05:43] LABS: Appearance Urine Cloudy; Color Urine Yellow; Glucose Urine UA Negative (Negative); Leukocyte Esterase Urine Moderate (2+) (Negative); Nitrite Urine Negative (Negative); PH 5.5 (5.0-9.0); Specific Gravity - Urine 1.025 (1.005-1.025); UMIC TRIGGER UACC YES; Urine Blood Moderate (2+) (Negative); Urine Ketones Trace mg/dL (Negative); Urine Protein 30 (1+) mg/dL (Neg-Trace)
[2024-10-17 05:45] LABS: UPreg QC Valid YES; Urine Pregnancy NEGATIVE (NEGATIVE)
[2024-10-17 05:53] LABS: Anion Gap 12 (12-20); Blood Urea Nitrogen 9 mg/dL (9-16); Calcium 9.1 mg/dL (8.4-10.2); Carbon Dioxide 22 mmol/L (22-29); Chloride 106 mmol/L (96-108); Creatinine Clr Calc Pharmacy 88.8; Estimated Glomerular Filt Rate > 60; Glucose Random 135 mg/dL (60-115); Lipase 20 U/L (8-78); Potassium 3.4 mmol/L (3.3-5.1); Sodium 137 mmol/L (135-145)
[2024-10-17 05:54] LABS: Bacteria Urine 3+ (None Seen); Squamous Epithelial Cell Urine >20 /HPF (0-2); UACC Culture Trigger YES; WBC Urine 21-50 /HPF (0-5)
[2024-10-17 08:26] LABS: Alanine Aminotransferase 11 U/L (0-31); Alkaline Phosphatase 76 U/L (39-117); Aspartate Amino Transferase 18 U/L (5-31); Bilirubin Direct 0.1 mg/dL (0.0-0.5); Bilirubin Total 0.4 mg/dL (0.0-1.0); Total Protein 8.1 g/dL (6.5-8.0)
--- NOTE | 2024-10-17 08:40 | ED.NAVMDI ---
HPI - Nausea/Vomiting/Diarrhea General Chief complaint: Abdominal Pain Stated complaint: vomiting, abd pain, teeth pain Time Seen by Provider: 10/17/24 08:16 Source: patient, family and old records reviewed Mode of arrival: ambulatory Limitations: no limitations History of Present Illness ED Provider: JUAN ANTONIO AGUERO Narrative: 49 yo female with PMH of HLD, DUB, polyarthralgia, depression, anxiety, RA notes 3 days started with n/v/d vomiting resolved as of last night but she persists with diarrhea and cramps. No known sick contacts, abx use, travel, food illness. She states she keeps having BM and nausea. No fevers or blood in stools. She came as she feels weak and tired. She has not been able to eat or drink. She has not taken any medications OTC. MD elicited complaint: nausea, vomiting, diarrhea and abdominal pain Pertinent past history: other Onset (ago): day(s) (3) Description of vomiting: watery and bilious Description of diarrhea: watery Associated nausea: Yes Associated abdominal pain: Yes Location of pain: diffuse Radiation: diffuse Pain consistency: intermittent Severity: mild Quality: cramping and aching Exacerbating factors: eating and vomiting Relieving factors: none Context: other Associated symptoms: loss of appetite, malaise, nausea/vomiting and weakness Related Data Previous Rx's ?Medication ?Instructions ?Recorded medroxyprogesterone 10 mg tablet 10 mg PO DAILY 30 days #30 tabs 08/25/24 (Provera) ferrous sulfate 325 mg (65 mg 325 mg PO DAILY 90 days #90 tabs 08/26/24 iron) tablet albuterol sulfate 90 mcg/actuation 2 puff inhalation Q4-6H PRN 09/21/24 aerosol inhaler (Ventolin HFA) shortness of breath or wheezing #8.5 grams amitriptyline 10 mg tablet 10 mg PO BEDTIME 90 days #90 tabs 09/21/24 buspirone 15 mg tablet 15 mg PO TID 30 days #90 tabs 09/21/24 cholecalciferol (vitamin D3) 50 50 mcg PO DAILY #90 tabs 09/21/24 mcg (2,000 unit) tablet ibuprofen 600 mg tablet 600 mg PO Q6H PRN pain #14 tabs 09/21/24 loratadine 10 mg tablet (Allergy 10 mg PO DAILY PRN allergy 09/21/24 Relief (loratadine)) symptoms 90 days #90 tabs mirabegron 50 mg tablet,extended 50 mg PO DAILY #90 tabs 09/21/24 release 24 hr (Myrbetriq) sumatriptan succinate 25 mg tablet See Rx Instructions PO .COMPLEX 09/21/24 (Imitrex) #14 tabs ondansetron 4 mg disintegrating 4 mg PO Q8H PRN nausea and 10/17/24 tablet vomiting #20 tabs Allergies Allergy/AdvReac Type Severity Reaction Status Date / Time Penicillins [PENICILLINS] Allergy Intermediate RASH Verified 10/17/24 05:24 adalimumab [Humira] Allergy Unknown rash Verified 10/17/24 05:24 methotrexate Allergy Unknown HIVES Verified 10/17/24 05:24 Review of Systems Review of Systems: Constitutional : No Weight loss, No Fever, No Chills ENT/Mouth : No sore throat, No Rhinorrhea Eyes: No Swelling, No Redness Cardiovascular : No Chest Pain, No SOB, NoEdema Respiratory : No Cough, No Sputum, No Wheezing Gastrointestinal : Positive Nausea, Positive Vomiting, positive Diarrhea, positive abdominal Pain, No Hematochezia, No Melena Genitourinary : No Dysuria, No Urinary Frequency, No Hematuria, No Urgency Musculoskeletal : No joint pain, No Myalgias, No Joint Swelling Skin : No Skin Lesions, No rash Neuro : No Weakness, No Numbness, No Dizziness, No Headache All other systems reviewed and are negative. Gastrointestinal: Gastrointestinal: Reports nausea PMFSH Past Medical History Medical History Abnormal Pap smear of cervix Dysmenorrhea Heavy menstrual bleeding Pelvic pain Enlarged uterus History of uterine fibroid Irregular menses Frequent UTI Bilateral nephrolithiasis Rheumatoid arthritis Surgical History History of back surgery H/O lithotripsy H/O tubal ligation Family History Family History Paternal Aunt Breast cancer Father Asthma Diabetes Mother Lupus Sister Lupus Epilepsy Social History Social History Household Members: None Housing: Apartment Are you a primary career development engineer to a significant other at home: No Do you presently have visiting nurse or other home services: No Alcohol intake: never Patient Tobacco Use Status: Never used Tobacco e-Cigarette/Vaping Use: Never Used Second Hand Smoke Exposure: No Advance Directives: No Advance Directives Information Provided: Yes Do you have a plan to hurt others: No Plan service: No Current occupational status: employed Current occupational exposures/hazards: No Cognitive needs: No Hearing needs: No Vision needs: No Physical Exam Vital Signs: Vital Signs: Last Vital Signs Temp 98.4 F 10/17/24 08:44 Pulse 79 10/17/24 08:44 Resp 16 10/17/24 08:58 BP 128/75 10/17/24 08:44 Pulse Ox 98 10/17/24 08:44 O2 Del Method Room Air 10/17/24 08:44 BMI result Body Mass Index 25.5 Appearance: Alert. Oriented X3. No acute distress. Eyes: Pupils equal, round and reactive to light. ENT: Pharynx normal. Neck: Normal inspection. Neck supple. CVS: Normal heart rate and rhythm. Pulses normal. Respiratory: No respiratory distress. Breath sounds normal. Abdomen: Soft and very mild diffuse ttp no rebound or guarding Skin: Skin warm and dry. Normal skin color. Extremities: No lower extremity edema. Neuro: Oriented X 3. No motor deficit. No sensory deficit. Medications Administered Discontinued Medications Generic Name Dose Route Start Last Admin Trade Name Freq PRN Reason Stop Dose Admin Lactated Ringer's 1,000 mls @ 999 mls/hr 10/17/24 08:43 10/17/24 08:58 Lr IV 10/17/24 09:43 999 mls/hr .Q1H1M ONE Administration Morphine Sulfate 4 mg 10/17/24 08:43 10/17/24 08:58 Morphine Sulfate 4 Mg/Ml Cartridge IVPUSH 10/17/24 08:44 4 mg ONCE ONE Administration Protocol Ondansetron HCl 4 mg 10/17/24 08:43 10/17/24 08:58 Ondansetron Hcl 4 Mg/2 Ml Vial IVPUSH 10/17/24 08:44 4 mg ONCE ONE Administration Medical Decision Making Medical Decision Making MDM Narrative: 49 yo female with PMH of HLD, DUB, polyarthralgia, depression, anxiety, RA here with c/o n/v/d and abdominal cramps - denies known exposures. She has no fevers, bloody stool and very benign exam will obtain labs, stool sample if she goes and start on fluids and IV morphine for pain. Will PO challenge and DC home if better. Differential Diagnosis Differential Diagnoses: The differential diagnosis associated with the presentation includes viral syndrome, dehydration, no localized ttp doubt appendicitis/GB pathology Admission/Observation Consideration of admission/observation: Escalation of care including admission/observation considered feels better tolerating PO stable for DC Lab Data MDM Lab Attestation statement: I reviewed the patient's lab results. UA appears contaminated has no urinary symptoms 10/17/24 05:34 10/17/24 05:34 Labs: Lab Results 10/17/24 Range/Units 05:34 WBC 5.8 (4.8-10.8) X10*3/uL RBC 4.35 (4.20-5.50) X10*6/uL Hgb 10.5 L (12.0-16.0) g/dl Hct 33.4 L (37.0-47.0) % MCV 76.8 L (80.0-98.0) fL MCH 24.1 L (27.0-33.0) pg MCHC 31.4 (31.0-35.0) g/dl RDW 14.0 (11.0-16.0) % Plt Count 282 (160-400) X10*3/uL MPV 9.1 L (9.4-12.3) fL Immature Gran % (Auto) 0.5 H (0.0-0.4) % Neut % (Auto) 77.6 H (45-73) % Lymph % (Auto) 10.0 L (20-40) % Johnson % (Auto) 11.7 H (2-11) % Eos % (Auto) 0.2 (0-4) % Baso % (Auto) 0.0 (0-2) % Lymph # (Auto) 0.6 L (1.2-4.9) X10*3/uL Johnson # (Auto) 0.7 (0.1-1.2) X10*3/uL Eos # (Auto) 0.0 (0.0-0.4) X10*3/uL Baso # (Auto) 0.0 (0.0-0.2) X10*3/uL Abs Immat Gran (auto) 0.03 (0.00-0.03) X10*3/uL Absolute Neuts (auto) 4.5 (2.0-8.3) x10*3/uL Absolute Nucleated RBC 0.000 (0.0-0.012) X10*3/uL Nucleated RBC % (auto) 0.0 (0.0-0.2) /100WBC Sodium 137 (135-145) mmol/L Potassium 3.4 (3.3-5.1) mmol/L Chloride 106 (96-108) mmol/L Carbon Dioxide 22 (22-29) mmol/L Anion Gap 12 (12-20) BUN 9 (9-16) mg/dL Creatinine 0.76 (0.5-1.4) mg/dL Estim Creat Clear Calc 88.8 Estimated GFR > 60 Random Glucose 135 H (60-115) mg/dL Calcium 9.1 (8.4-10.2) mg/dL Total Bilirubin 0.4 (0.0-1.0) mg/dL Direct Bilirubin 0.1 (0.0-0.5) mg/dL AST 18 (5-31) U/L ALT 11 (0-31) U/L Alkaline Phosphatase 76 (39-117) U/L Total Protein 8.1 H (6.5-8.0) g/dL Albumin 4.0 (3.5-5.0) g/dL Lipase 20 (8-78) U/L Urine Color Yellow Urine Appearance Cloudy Urine pH 5.5 (5.0-9.0) Ur Specific [place] 1.025 (1.005-1.025) Urine Protein 30 (1+) H (Neg-Trace) mg/dL Urine Glucose (UA) Negative (Negative) mg/dL Urine Ketones Trace (Negative) mg/dL Urine Blood Moderate (2+) H (Negative) Urine Nitrite Negative (Negative) Ur Leukocyte Esterase Moderate (2+) H (Negative) Urine RBC 3-5 H (0-2) /HPF Urine WBC 21-50 H (0-5) /HPF Ur Squamous Epith Cells >20 (0-2) /HPF Urine Bacteria 3+ (None Seen) Hyaline Casts 3-5 (0-2) /LPF Urine Test NEGATIVE (NEGATIVE) Independent Historian Clinical information obtained from an independent historian. History obtained from or confirmed by: Spouse External Record Review External record reviewed: Outpatient record Prescription Management I considered prescription management with: Other Discharge Plan Discharge Clinical Impression: Acute viral syndrome, Nausea vomiting and diarrhea Patient Disposition: Home, Self-Care Instructions: Acute Nausea and Vomiting (ED), Acute Diarrhea (ED), Viral Syndrome (ED) Additional Instructions: return for any worsening symptoms such as unable to eat or drink, severe pain, bloody stools or any other concerns liquid diet for 24 hours then slowly advance diet over 48 hours - bananas, rice, toast, apple sauce Prescriptions: New ondansetron 4 mg tablet,disintegrating 4 mg PO Q8H PRN (Reason: nausea and vomiting) Qty: 20 0RF No Action ferrous sulfate 325 mg (65 mg iron) tablet 325 mg PO DAILY 90 Days Qty: 90 1RF medroxyprogesterone [Provera] 10 mg tablet 10 mg PO DAILY 30 Days Qty: 30 0RF Rx Instructions: start Provera 1 tablet daily ciprofloxacin HCl 500 mg tablet 500 mg PO ONCE Qty: 1 0RF naproxen 500 mg tablet 500 mg PO ONCE Qty: 1 0RF lidocaine HCl 2 % jelly in applicator 10 ml intra-urethral ONCE Qty: 10 0RF sumatriptan succinate [Imitrex] 25 mg tablet See Rx Instructions .ROUTE .COMPLEX Qty: 14 0RF Rx Instructions: take 1 tab at onset of headache; if no relief may repeat 1 tab after at least 2 hrs; max = 4 tabs/24 hr Myrbetriq 50 mg tablet extended release 24 hr 50 mg PO DAILY Qty: 90 0RF loratadine [Allergy Relief (loratadine)] 10 mg tablet 10 mg PO DAILY PRN (Reason: allergy symptoms) 90 Days Qty: 90 1RF ibuprofen 600 mg tablet 600 mg PO Q6H PRN (Reason: pain) Qty: 14 0RF cholecalciferol (vitamin D3) 50 mcg (2,000 unit) tablet 50 mcg PO DAILY Qty: 90 0RF buspirone 15 mg tablet 15 mg PO TID 30 Days Qty: 90 2RF amitriptyline 10 mg tablet 10 mg PO BEDTIME 90 Days Qty: 90 0RF albuterol sulfate [Ventolin HFA] 90 mcg/actuation HFA aerosol inhaler 2 puff inhalation Q4-6H PRN (Reason: shortness of breath or wheezing) Qty: 8.5 0RF Print Language: Stateless
[2024-10-17 08:44] VITALS: BP 128/75; PULSE 79; RESP 15; TEMP 36.9; O2SAT 98
[2024-10-17 08:58] VITALS: RESP 16
[2024-10-17] MEDS: Lactated Ringers 1,000 ML 999 ML IV (08:58)
[2024-10-17] MEDS: ondansetron HCL 4 MG/2 ML VIAL IVPUSH (08:58)
[2024-10-17] MEDS: Morphine Sulfate 4 MG/ML CARTRIDGE IVPUSH (08:58)
--- NOTE | 2024-10-17 10:38 | PC.NURSE ---
patient able to tolerate po richard carmencita and crackers.
== END 2024-10-17 10:40 | disposition home or self-care (01) ==
PROVIDERS: Emergency Provider Emergency Medicine; PCP Internal Medicine
DX: B34.9 Viral infection, unspecified (principal); R11.2 Nausea with vomiting, unspecified; R19.7 Diarrhea, unspecified; E78.5 Hyperlipidemia, unspecified; M06.9 Rheumatoid arthritis, unspecified
CPT/HCPCS: 36415; 80048; 80076; 81001; 81025; 83690; 85025; 87086; 96361; 96374; 96375; 99283; 99284; J2270; J2405; J7120

== ENCOUNTER 2025-02-14 02:05 | Emergency (ER) | payer OTHER, SELFPAY ==
--- NOTE | 2025-02-14 | ECG_ITS ---
Test Reason : CP Blood Pressure : */* mmHG Vent. Rate : 106 BPM Atrial Rate : 106 BPM P-R Int : 132 ms QRS Dur : 70 ms QT Int : 342 ms P-R-T Axes : 52 6 45 degrees QTcB Int : 454 ms Sinus tachycardia Possible Left atrial enlargement Borderline ECG When compared with ECG of 25-Nov-2023 01:35, Vent. rate has increased by 54 bpm Referred By: Generic ED Physician Electronically Signed By: Bernard Sawyer
--- NOTE | ~2025-02-14 | XR_ITS ---
CLINICAL HISTORY: cough, chest pain 2 view chest x-ray Comparison: CR/SR - XR CHEST 2V - 11/25/23 01:59 EST Findings: No consolidation or effusion. Normal size heart. No acute fracture. IMPRESSION: 1. No acute findings. This document has been electronically signed by: Joe Mora MD on 02/14/2025 04:43:39
[2025-02-14 02:21] VITALS: BP 108/71; PULSE 110; RESP 18; TEMP 37.4; O2SAT 97; BMI 26.1
--- NOTE | 2025-02-14 02:43 | ED.GENADULT ---
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 She has has a migraine and sinus pressure at the same time - she is not responding to sumatriptan. She denies recent travel,OCP use, procedures. She has no sick contacts. Tonight she was sleeping and rolled over and felt a pain in her chest it was strong it is gone now but she came to get checked out. She states she really is having a hard time with the migraine and sinus pressure. MD complaint: URI/migraine/chest pain Onset (ago): day(s) (2) Location: head, face and chest Radiation: non-radiation Severity: moderate Quality: aching Pain Consistency: other (chest pain resolved) Relieving factors: none Exacerbating factors: movement Associated symptoms: cough, headaches, loss of appetite and weakness Treatments prior to arrival: other (sumatriptan) Related Data Previous Rx's ?Medication ?Instructions ?Recorded medroxyprogesterone 10 mg tablet 10 mg PO DAILY 30 days #30 tabs 08/25/24 (Provera) ferrous sulfate 325 mg (65 mg 325 mg PO DAILY 90 days #90 tabs 08/26/24 iron) tablet albuterol sulfate 90 mcg/actuation 2 puff inhalation Q4-6H PRN 09/21/24 aerosol inhaler (Ventolin HFA) shortness of breath or wheezing #8.5 grams buspirone 15 mg tablet 15 mg PO TID 30 days #90 tabs 09/21/24 cholecalciferol (vitamin D3) 50 50 mcg PO DAILY #90 tabs 09/21/24 mcg (2,000 unit) tablet ibuprofen 600 mg tablet 600 mg PO Q6H PRN pain #14 tabs 09/21/24 loratadine 10 mg tablet (Allergy 10 mg PO DAILY PRN allergy 09/21/24 Relief (loratadine)) symptoms 90 days #90 tabs mirabegron 50 mg tablet,extended 50 mg PO DAILY #90 tabs 09/21/24 release 24 hr (Myrbetriq) sumatriptan succinate 25 mg tablet See Rx Instructions PO .COMPLEX 09/21/24 (Imitrex) #14 tabs ondansetron 4 mg disintegrating 4 mg PO Q8H PRN nausea and 10/17/24 tablet vomiting #20 tabs amitriptyline 10 mg tablet 10 mg PO BEDTIME 90 days #90 tabs 12/19/24 doxycycline hyclate 100 mg capsule 100 mg PO BID 7 days #14 caps 02/14/25 ondansetron 4 mg disintegrating 4 mg PO Q8H PRN nausea and 02/14/25 tablet vomiting #20 tabs Allergies Allergy/AdvReac Type Severity Reaction Status Date / Time Penicillins [PENICILLINS] Allergy Intermediate RASH Verified 02/14/25 02:22 adalimumab [Humira] Allergy Unknown rash Verified 02/14/25 02:22 methotrexate Allergy Unknown HIVES Verified 02/14/25 02:22 Review of Systems Review of Systems: Constitutional : pos Fever, pos Chills, pos Fatigue ENT/Mouth : No sore throat, No Rhinorrhea Eyes: No Eye Pain, No Swelling, No Redness Cardiovascular : pos Chest Pain, No SOB, No Dyspnea on Exertion Respiratory : pos Cough, No Sputum Gastrointestinal : No Nausea, No Vomiting, No Diarrhea, No abdominal Pain Genitourinary : No Dysuria, No Urinary Frequency, No Hematuria, Musculoskeletal : No joint pain, pos Myalgias, No Joint Swelling Skin : No Skin Lesions, No rash Neuro : No Weakness, No Numbness, No Dizziness, positive Headache All other systems reviewed and are negative [facility] Past Medical History Attestation statement: The following information was validated with the patient. Source: old records reviewed Medical History Abnormal Pap smear of cervix Dysmenorrhea Heavy menstrual bleeding Pelvic pain Enlarged uterus History of uterine fibroid Irregular menses Frequent UTI Bilateral nephrolithiasis Rheumatoid arthritis Surgical History History of back surgery H/O lithotripsy H/O tubal ligation Family History Family History Paternal Aunt Breast cancer Father Asthma Diabetes Mother Lupus Sister Lupus Epilepsy Social History Social History Household Members: None Housing: Apartment Are you a primary healthcare economics manager to a significant other at home: No Do you presently have visiting nurse or other home services: No Alcohol intake: never Patient Tobacco Use Status: Never used Tobacco e-Cigarette/Vaping Use: Never Used Second Hand Smoke Exposure: No Advance Directives: No Advance Directives Information Provided: Yes Do you have a plan to hurt others: No Plan service: No Current occupational status: employed Current occupational exposures/hazards: No Cognitive needs: No Hearing needs: No Vision needs: No Physical Exam ED Vital Signs: Vital Signs - 24 hr 02/14/25 02:21 02/14/25 02:47 Temperature 99.3 F 99.3 F Pulse Rate 110 H 91 Respiratory Rate 18 19 Blood Pressure 108/71 108/77 Pulse Oximetry 97 97 Oxygen Delivery Method Room Air Room Air BMI result Body Mass Index 26.1 Appearance: Alert. Oriented X3. No acute distress. Eyes: Pupils equal, round and reactive to light. ENT: Pharynx normal. bilateral sinus ttp Neck: Normal inspection. Neck supple. CVS: Normal heart rate and rhythm. Pulses normal. Respiratory: No respiratory distress. Breath sounds normal. Abdomen: Soft and nontender. Skin: Skin warm and dry. Normal skin color. Extremities: No lower extremity edema. Neuro: Oriented X 3. No motor deficit. No sensory deficit. CN2-12 intact Medications Administered Discontinued Medications Generic Name Dose Route Start Last Admin Trade Name Freq PRN Reason Stop Dose Admin Diphenhydramine HCl 25 mg 02/14/25 02:58 02/14/25 03:24 Diphenhydramine Hcl 50 Mg/Ml Vial IVPUSH 02/14/25 02:59 25 mg ONCE ONE Administration Lactated Ringer's 1,000 mls @ 999 mls/hr 02/14/25 03:00 02/14/25 03:29 Lr IV 02/14/25 04:00 999 mls/hr .Q1H1M ONE Administration Ketorolac Tromethamine 15 mg 02/14/25 02:58 02/14/25 03:24 Ketorolac Tromethamine 15 Mg/Ml Vial IVPUSH 02/14/25 02:59 15 mg ONCE ONE Administration Metoclopramide HCl 10 mg 02/14/25 02:58 02/14/25 03:23 Metoclopramide Hcl 10 Mg/2 Ml Vial IVPUSH 02/14/25 02:59 10 mg ONCE ONE Administration Medical Decision Making Medical Decision Making [facility] Narrative: 49 yo female with PMH of depression, HLD, fatigue, anxiety, RA, migraines, anemia here with c/o URI symptoms for 2 days and persistent sinus pressure and headaches - patient had brief chest pain when moving in bed - this seems unusual for VTE and ACS - chest pain resolved. At this time will obtain viral panel, EKG, CXR, troponin x 1 and start on a migraine cocktail - I suspect sinusitis. No meningeal signs or severe pain to suggest PET CARETAKER infection / SAH. Differential Diagnosis Differential Diagnoses: The differential diagnosis associated with the presentation includes URI chest pain is atypical has no risk factors for DVT - no travel, no OCPs, no hypoxia and not pleuritic wells score is 1.5 low risk group Admission/Observation Consideration of admission/observation: Escalation of care including admission/observation considered work up reassuring atypical symptoms COVID negative will start on abx for sinusitis she is feeling better Lab Data [facility] Lab Attestation statement: I reviewed the patient's lab results. 02/14/25 03:17 02/14/25 03:17 Labs: Lab Results 02/14/25 02/14/25 Range/Units 02:43 03:17 WBC 5.5 (4.8-10.8) X10*3/uL RBC 4.43 (4.20-5.50) X10*6/uL Hgb 10.7 L (12.0-16.0) g/dl Hct 33.6 L (37.0-47.0) % MCV 75.8 L (80.0-98.0) fL MCH 24.2 L (27.0-33.0) pg MCHC 31.8 (31.0-35.0) g/dl RDW 15.4 (11.0-16.0) % Plt Count 297 (160-400) X10*3/uL MPV 9.3 L (9.4-12.3) fL Immature Gran % (Auto) 0.4 (0.0-0.4) % Neut % (Auto) 72.4 (45-73) % Lymph % (Auto) 9.6 L (20-40) % Citrus % (Auto) 13.6 H (2-11) % Eos % (Auto) 3.6 (0-4) % Baso % (Auto) 0.4 (0-2) % Lymph # (Auto) 0.5 L (1.2-4.9) X10*3/uL Citrus # (Auto) 0.8 (0.1-1.2) X10*3/uL Eos # (Auto) 0.2 (0.0-0.4) X10*3/uL Baso # (Auto) 0.0 (0.0-0.2) X10*3/uL Abs Immat Gran (auto) 0.02 (0.00-0.03) X10*3/uL Absolute Neuts (auto) 4.0 (2.0-8.3) x10*3/uL Absolute Nucleated RBC 0.000 (0.0-0.012) X10*3/uL Nucleated RBC % (auto) 0.0 (0.0-0.2) /100WBC Sodium 138 (135-145) mmol/L Potassium 4.0 (3.3-5.1) mmol/L Chloride 106 (96-108) mmol/L Carbon Dioxide 23 (22-29) mmol/L Anion Gap 13 (12-20) BUN 6 L (9-16) mg/dL Creatinine 0.70 (0.5-1.4) mg/dL Estim Creat Clear Calc 97.5 Estimated GFR > 60 Random Glucose 112 (60-115) mg/dL Calcium 9.0 (8.4-10.2) mg/dL Magnesium 2.2 (1.6-2.6) mg/dL Total Bilirubin 0.4 (0.0-1.0) mg/dL Direct Bilirubin 0.1 (0.0-0.5) mg/dL AST 21 (5-31) U/L ALT 14 (0-31) U/L Alkaline Phosphatase 77 (39-117) U/L Troponin I High Sens < 2.7 (<3.5-17.0) ng/L Total Protein 7.7 (6.5-8.0) g/dL Albumin 4.0 (3.5-5.0) g/dL Influenza Type A (PCR) NEGATIVE (Negative) Influenza Type B (PCR) NEGATIVE (Negative) RSV RNA Qual (PCR) NEGATIVE (Negative) SARS-CoV-2 RNA (RT-PCR) NEGATIVE (Negative) Independent Interpretation I performed an independent interpretation of an: EKG and Plain X-Ray Interpretation: Rate: 106 Rhythm: sinus tach [place]: left Normal P waves. Normal MARLY. Normal QRS complex. ST T wave : no SUDHEER, flat t waves V1 and V2 qTC: 454 prior studies: no sig change from prior The study has been interpreted contemporaneously by me. . Radiology Impression Discussion of test interpretation with radiology: I have reviewed the radiologist's reading. External Record Review External record reviewed: Outpatient record Prescription Management I considered prescription management with: Pain Medication, Antibiotic and Other Discharge Plan Discharge Clinical Impression: Acute viral syndrome Migraine headache Qualifiers: Migraine type: unspecified Status migrainosus presence: without status migrainosus Intractability: not intractable Qualified Code(s): G43.909 - Migraine, unspecified, not intractable, without status migrainosus Sinusitis Qualifiers: Sinusitis location: maxillary Chronicity: acute Recurrence: non-recurrent Qualified Code(s): J01.00 - Acute maxillary sinusitis, unspecified Patient Disposition: Home, Self-Care Instructions: Sinusitis (ED), Migraine Headache (ED), Viral Syndrome (ED) Additional Instructions: chest xray is normal EKG reassuring labs reassuring negative for COVID, flu, RSV suspect this is sinusitis return for worsening symptoms, trouble breathing or any other concerns take your antibiotics with food and a full glass of water On doxycycline, do not take pills immediately before going to bed and swallow pills with plenty of water. Avoid direct sunlight, iron, antacids, and Pepto Bismol. Call your provider if you develop new ringing in your ears, new problems hearing, dizziness, difficulty swallowing, rash, abdominal discomfort, nausea, or diarrhea.? Prescriptions: New doxycycline hyclate 100 mg capsule 100 mg PO BID 7 Days Qty: 14 0RF ondansetron 4 mg tablet,disintegrating 4 mg PO Q8H PRN (Reason: nausea and vomiting) Qty: 20 0RF No Action ferrous sulfate 325 mg (65 mg iron) tablet 325 mg PO DAILY 90 Days Qty: 90 1RF amitriptyline 10 mg tablet 10 mg PO BEDTIME 90 Days Qty: 90 0RF ondansetron 4 mg tablet,disintegrating 4 mg PO Q8H PRN (Reason: nausea and vomiting) Qty: 20 0RF medroxyprogesterone [Provera] 10 mg tablet 10 mg PO DAILY 30 Days Qty: 30 0RF Rx Instructions: start Provera 1 tablet daily ciprofloxacin HCl 500 mg tablet 500 mg PO ONCE Qty: 1 0RF naproxen 500 mg tablet 500 mg PO ONCE Qty: 1 0RF lidocaine HCl 2 % jelly in applicator 10 ml intra-urethral ONCE Qty: 10 0RF sumatriptan succinate [Imitrex] 25 mg tablet See Rx Instructions .ROUTE .COMPLEX Qty: 14 0RF Rx Instructions: take 1 tab at onset of headache; if no relief may repeat 1 tab after at least 2 hrs; max = 4 tabs/24 hr Myrbetriq 50 mg tablet extended release 24 hr 50 mg PO DAILY Qty: 90 0RF loratadine [Allergy Relief (loratadine)] 10 mg tablet 10 mg PO DAILY PRN (Reason: allergy symptoms) 90 Days Qty: 90 1RF ibuprofen 600 mg tablet 600 mg PO Q6H PRN (Reason: pain) Qty: 14 0RF cholecalciferol (vitamin D3) 50 mcg (2,000 unit) tablet 50 mcg PO DAILY Qty: 90 0RF buspirone 15 mg tablet 15 mg PO TID 30 Days Qty: 90 2RF albuterol sulfate [Ventolin HFA] 90 mcg/actuation HFA aerosol inhaler 2 puff inhalation Q4-6H PRN (Reason: shortness of breath or wheezing) Qty: 8.5 0RF Stand Alone Forms: Work/School Release Print Language: Luxembourgish
[2025-02-14 02:47] VITALS: BP 108/77; PULSE 91; RESP 19; TEMP 37.4; O2SAT 97
[2025-02-14 03:21] LABS: MANUAL DIFF FLAG NO
[2025-02-14 03:22] LABS: Basophils Percent Auto 0.4 % (0-2); Eosinophils Absolute Auto 0.2 X10*3/uL (0.0-0.4); Eosinophils Percent Auto 3.6 % (0-4); Hematocrit 33.6 % (37.0-47.0); Hemoglobin 10.7 g/dl (12.0-16.0); Imm Gran Abs Auto 0.02 X10*3/uL (0.00-0.03); Imm Gran Pct Auto 0.4 % (0.0-0.4); Lymphocytes Absolute Auto 0.5 X10*3/uL (1.2-4.9); Lymphocytes Percent Auto 9.6 % (20-40); Mean Corpuscular HGB Conc 31.8 g/dl (31.0-35.0); Mean Corpuscular Hemoglobin 24.2 pg (27.0-33.0); Mean Corpuscular Volume 75.8 fL (80.0-98.0); Mean Platelet Volume 9.3 fL (9.4-12.3); Monocytes Absolute Auto 0.8 X10*3/uL (0.1-1.2); Monocytes Percent Auto 13.6 % (2-11); Neutrophils Percent Auto 72.4 % (45-73); Platelet Count 297 X10*3/uL (160-400); Red Blood Count 4.43 X10*6/uL (4.20-5.50); Red Cell Distribution Width 15.4 % (11.0-16.0); White Blood Count 5.5 X10*3/uL (4.8-10.8)
[2025-02-14] MEDS: Metoclopramide HCl 10 MG/2 ML VIAL IVPUSH (03:23)
[2025-02-14] MEDS: diphenhydrAMINE HCL 50 MG/ML VIAL 25 MG IVPUSH (03:24)
[2025-02-14] MEDS: Ketorolac Tromethamine 15 MG/ML VIAL IVPUSH (03:24)
[2025-02-14 03:25] LABS: Influenza A PCR NEGATIVE (Negative); Influenza B PCR NEGATIVE (Negative); Resp Syncy Virus RNA Qual PCR NEGATIVE (Negative); SARS COV2 PCR INHOUSE NEGATIVE (Negative)
[2025-02-14] MEDS: Lactated Ringers 1,000 ML 999 ML IV (03:29)
[2025-02-14 03:51] LABS: Troponin-I High Sensitivity < 2.7 ng/L (<3.5-17.0)
[2025-02-14 03:52] LABS: Alanine Aminotransferase 14 U/L (0-31); Alkaline Phosphatase 77 U/L (39-117); Anion Gap 13 (12-20); Aspartate Amino Transferase 21 U/L (5-31); Bilirubin Direct 0.1 mg/dL (0.0-0.5); Bilirubin Total 0.4 mg/dL (0.0-1.0); Blood Urea Nitrogen 6 mg/dL (9-16); Carbon Dioxide 23 mmol/L (22-29); Chloride 106 mmol/L (96-108); Creatinine Clr Calc Pharmacy 97.5; Estimated Glomerular Filt Rate > 60; Glucose Random 112 mg/dL (60-115); Magnesium 2.2 mg/dL (1.6-2.6); Sodium 138 mmol/L (135-145); Total Protein 7.7 g/dL (6.5-8.0)
[2025-02-14 04:44] VITALS: BP 108/77; PULSE 91; RESP 19; TEMP 37.4; O2SAT 97
== END 2025-02-14 04:44 | disposition home or self-care (01) ==
PROVIDERS: Emergency Provider Emergency Medicine; PCP Internal Medicine
DX: G43.909 Migraine, unspecified, not intractable, without status migrainosus (principal); J01.00 Acute maxillary sinusitis, unspecified; B34.9 Viral infection, unspecified; R07.9 Chest pain, unspecified; M06.9 Rheumatoid arthritis, unspecified; R50.9 Fever, unspecified; Z03.818 Encounter for observation for suspected exposure to other biological agents ruled out
CPT/HCPCS: 0241U; 36415; 71046; 80048; 80076; 83735; 84484; 85025; 93005; 96361; 96374; 96375; 99284; 99285; J1200; J1885; J2765; J7120

== ENCOUNTER → 2025-02-14 02:09 | Outpatient (BNV) | payer OTHER, SELFPAY | PROVIDERS: Emergency Provider Emergency Medicine; PCP Internal Medicine; Visit Provider Internal Medicine Cardiovascular Disease | DX: R00.0 Tachycardia, unspecified (principal) | CPT/HCPCS: 93010 ==

== ENCOUNTER → 2025-02-14 02:42 | Outpatient (BNV) | payer OTHER, SELFPAY | PROVIDERS: Emergency Provider Emergency Medicine; PCP Internal Medicine; Visit Provider Radiology Diagnostic Radiology | DX: R07.9 Chest pain, unspecified (principal); R05.9 Cough, unspecified | CPT/HCPCS: 71046 ==

== ENCOUNTER 2025-09-25 15:59 | Outpatient (AMB) | payer OTHER, SELFPAY ==
[2025-09-25 16:05] VITALS: BP 120/76; PULSE 73; TEMP 36.6; O2SAT 99; BMI 26.3
--- NOTE | 2025-09-25 16:05 | MHC.PC.OV ---
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 Accompanied by: Self / Same As Patient Allergies Penicillins (PENICILLINS) Allergy (Intermediate, Verified 09/25/25 16:23) RASH adalimumab (Humira) Allergy (Unknown, Verified 09/25/25 16:23) rash methotrexate Allergy (Unknown, Verified 09/25/25 16:23) HIVES Medication List - Last Reconciled 09/25/25 by Bella Watts MD albuterol sulfate 90 mcg/actuation (Ventolin HFA) 2 puffs inhalation Q4-6H PRN amitriptyline 10 mg PO BEDTIME 90 days buspirone 15 mg PO TID 30 days cholecalciferol (vitamin D3) 50 mcg PO DAILY ferrous sulfate 325 mg PO DAILY 90 days ibuprofen 600 mg PO Q6H PRN loratadine (Allergy Relief (loratadine)) 10 mg PO DAILY PRN 90 days medroxyprogesterone (Provera) 10 mg PO DAILY 30 days mirabegron ER (Myrbetriq) 50 mg PO DAILY ondansetron 4 mg PO Q8H PRN ondansetron 4 mg PO Q8H PRN sumatriptan succinate (Imitrex) take 1 tab at onset of headache; if no relief may repeat 1 tab after at least 2 hrs; max = 4 tabs/24 hr Tobacco use date assessed: 09/25/25 Dental Screening Dental Screen Date: 09/25/25 Did you have a dental visit in the last 12 months?: No Did you have a dental problem in the last 6 months where you did not have access to dental care?: No HPI HPI Comments History of Present Illness Details The patient is a 50 year old female presenting for an annual physical exam. She reports being overdue for a mammogram, with her last one being in 2020, and is also due for a colonoscopy, for which a referral was sent in 2022 but she was never contacted. Her last Pap smear was last year and the results were normal. Her last tetanus vaccine was in 2009. Complaints of muscle cramps. Also has depression with anxiety. The patient reports having a migraine for the past three days. She also has issues with muscle cramps. She takes sumatriptan for her migraines. She reports feeling very depressed and has had episodes of syncope. Myrbetriq was previously prescribed for urinary issues but was not effective. The patient has allergies to penicillin, Humira, and methotrexate. Her current medications include amitriptyline, buspirone, vitamin D, iron, ibuprofen, loratadine, and sumatriptan. Her surgical history includes back surgery, lithotripsy, and tubal ligation. She denies any known family history of colon cancer. [facility] Medical History (Updated 09/25/25 @ 20:07 by Bella Watts MD) Mild major depression Abnormal Pap smear of cervix Dysmenorrhea Heavy menstrual bleeding Pelvic pain Enlarged uterus History of uterine fibroid Irregular menses Frequent UTI Bilateral nephrolithiasis Rheumatoid arthritis Surgical History History of back surgery H/O lithotripsy H/O tubal ligation Family History Paternal Aunt Breast cancer Father Asthma Diabetes Mother Lupus Sister Lupus Epilepsy Social History Household Members: None Both parents involved: No Caregiver staying overnight: No Housing: Apartment Are you a primary career portals teacher to a significant other at home: No Do you presently have visiting nurse or other home services: No 75 years or older and lives alone: No Alcohol intake: never Patient Tobacco Use Status: Never used Tobacco e-Cigarette/Vaping Use: Never Used Second Hand Smoke Exposure: No service: No Current occupational status: employed Current occupational exposures/hazards: No Cognitive needs: No Hearing needs: No Vision needs: Yes (reading glasses) Female Reproductive History Menstrual Age of Menarche: 9 Questionnaire PHQ-9 Over the last 2 weeks, how often have you been bothered by any of the following problems? 1. Little interest or pleasure in doing things: not at all 2. Feeling down, depressed, or hopeless: nearly every day 3. Trouble falling or staying asleep, or sleeping too much: nearly every day 4. Feeling tired or having little energy: more than half the days 5. Poor appetite or overeating: more than half the days 6. Feeling bad about yourself - or that you are a failure or have let yourself or your family down: more than half the days 7. Trouble concentrating on things, such as reading the newspaper or watching television: more than half the days 8. Moving or speaking so slowly that other people could have noticed. Or the opposite - being so fidgety or restless that you have been moving around a lot more than usual: more than half the days 9. Thoughts that you would be better off or of hurting yourself in some way: nearly every day Total score: 19 Depression Screening Interpretation: Positive (no suicidal thoughts) Depression Screening Follow-up: Existing condition and Follow-up Visit Requested Depression Screening Done: Yes 53358 - PHQ-9 Billing: Yes Source: Developed by Drs. Jose Martin Crabtree, Jessica Fischer, Saad Etienne and colleagues, with an educational kylee from [employer]. Thrive Questionnaire Date Thrive assessed: 09/25/25 I am a: Patient What is your living situation today?: I choose not to answer this question Within the past 12 months, did the food you bought not last and you didn't have the money to get more?: Never true Within the past 12 months, did you worry whether your food would run out before you got money to buy more?: Never true Do you have trouble paying for medicines?: No Do you have trouble getting transportation to medical appointments?: No Do you have trouble paying your heating and electricity bill?: No Do you have trouble taking care of your child, family member or friend?: No Do you have trouble with day-to-day activities such as bathing, preparing meals, shopping, managing finances, etc.?: No Are you currently unemployed and looking for a job?: No Are you interested in more education?: No THRIVE Score: 0 AUDIT C Alcohol Use Questionnaire (AUDIT-C) 1. How often do you have a drink containing alcohol?: Never 3. How often do you have six or more drinks on one occasion?: Never Total Score: 0 Score Reviewed/Action Taken: No CHULA-7 AMB Questionnaire CHULA-7 Date CHULA - 7 assessed: 09/25/25 Feeling nervous, anxious, or on edge: 3 = Nearly every day Not being able to stop or control worryin = Nearly every day Worrying too much about different things: 3 = Nearly every day Trouble relaxin = Not at all Being so restless that it is hard to sit still: 0 = Not at all Becoming easily annoyed or irritable: 0 = Not at all Feeling afraid as if something awful might happen: 0 = Not at all Total CHULA-7 score (0-4 normal; 5-9 mild; 10-14 moderate; 15-21 severe): 9 Source: Developed by Drs. Jose Martin Crabtree, Jessica Fischer, Saad Etienne and colleagues, with an educational kylee from [employer]. CHULA-7 Assessment Billing CHULA-7 Assessment Tool: CHULA-7 Assessment 49279 Review of Systems Const All systems reviewed & are unremarkable except as noted in HPI and below Card Denies chest pain at rest, Denies chest pain with activity, Denies edema, Denies irregular heart rhythm, Denies claudication, Denies dyspnea, Denies dyspnea on exertion, Denies orthopnea, Denies paroxysmal nocturnal dyspnea and Denies slow heart rate Resp Denies cough, Denies dyspnea and Denies dyspnea on exertion Physical exam (Primary Care) Vital Signs: Last Vital Signs Temp 97.9 F 09/25/25 16:05 Pulse 73 09/25/25 16:05 BP 120/76 09/25/25 16:05 Pulse Ox 99 09/25/25 16:05 Oxygen Delivery Method Room Air 09/25/25 16:05 BMI result Body Mass Index 26.3 Tobacco/Smoking Status: Tobacco use Status Tobacco use date assessed 09/25/25 09/25/25 16:14 Patient Tobacco Use Status Never used Tobacco 09/25/25 16:05 e-Cigarette/Vaping Use Never Used 09/25/25 16:05 PHQ-9: PHQ-9 Score PHQ-9: Total score 19 09/25/25 16:27 Depression Screening Interpretation: Positive (no suicidal thoughts) Depression Screening Follow-up: Existing condition and Follow-up Visit Requested Thrive Assessment: Date of Thrive Assessment Date Thrive assessed 09/25/25 09/25/25 16:14 HENMT Head: Yes normal to inspection, Yes normocephalic and Yes atraumatic Ears: external ears normal Eyes General: appearance normal, both eyes and all related structures Eyelids: Yes eyelids normal Conjunctivae: conjunctivae normal Neck Neck: Yes normal visual inspection and Yes supple Resp Effort & Inspection: normal respiratory effort Auscultation: clear to auscultation bilaterally Cardio Jugular venous distension: no JVD Rate: regular rate Rhythm: regular rhythm Heart sounds: S1 normal heart sound present and S2 normal heart sound present GI Inspection: Yes normal to inspection Palpation (GI): Soft to palpation and nontender Auscultation: normal bowel sounds Skin General skin exam: no rashes or lesions noted Neuro General: no focal motor deficits Extrem General: Yes full ROM Psych Appearance: grossly normal Coding Level of Care Code Est Pt Level 3 (44479) Est Pt Prev Care 40-64y(46759) Diagnoses Physical exam Z00.00 Muscle cramps R25.2 Moderate recurrent major depression F33.1 Additional Codes CHULA-7 Assessment Billing - CHULA-7 Assessment Tool: CHULA-7 Assessment 62622 ([id number]) PHQ-9 - 83703 - PHQ-9 Billing: Yes ([id number]) Time Spent (min) 32 Assessment & Plan Assessment & Plan (1) Physical exam: Code(s): Z00.00 - Encounter for general adult medical examination without abnormal findings Category: Medical (2) Muscle cramps: Code(s): R25.2 - Cramp and spasm Category: Medical (3) Moderate recurrent major depression: Code(s): F33.1 - Major depressive disorder, recurrent, moderate Category: Medical Plan Plan 1. Physical exam Repeat in a year. 2. Muscle Cramps The patient reports muscle cramps. Magnesium and potassium will be ordered to investigate the cause of the cramps. Orders: Orders MM tomosynthesis screening BI Today Z12.31 - Encounter for screening mammogram for malignant neoplasm of breast Vitamin B12 and Folate Today E53.8 - Deficiency of other specified B group vitamins Comprehensive [place]. Panel Fast Today R25.2 - Cramp and spasm Magnesium Today R25.2 - Cramp and spasm Lipid Panel Today E78.5 - Hyperlipidemia, unspecified Vitamin D 25-OH Total Today E55.9 - Vitamin D deficiency, unspecified Referrals Open Access Screening Colonoscopy Referral Z12.12 - Encounter for screening for malignant neoplasm of rectum Psychiatry Outpatient Consultation Service F33.1 - Major depressive disorder, recurrent, moderate Medications: New sertraline 25 mg PO DAILY 90 tabs 0RF 90 days F33.1 - Major depressive disorder, recurrent, moderate Refilled sumatriptan succinate (Imitrex) take 1 tab at onset of headache; if no relief may repeat 1 tab after at least 2 hrs; max = 4 tabs/24 hr 14 tabs 0RF G43.909 - Migraine, unspecified, not intractable, without status migrainosus Discontinued mirabegron ER (Myrbetriq) Discontinued Reason: Patient Refused 50 mg PO DAILY 90 tabs 0RF M25.50 - Pain in unspecified joint
--- OUTSIDE RECORDS SUMMARY | 2025-09-26 01:36 | XMS_ITS | Clinical Summary ---
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 Phone Obtain, Unable To Primary Care Provider Unavaila ble Allergies Active Allergy Reactions Criticality Noted Date Comments Penicillins 05/29/2017 Social History Tobacco Use Types Packs/Day Years Used Date Smoking Tobacco: Never Assessed Comments Unknown Sex and Gender Information Value Date Recorded Sex Assigned at Not on file Legal Sex Female 7:08 PM EDT Gender Identity Not on file Sexual Orientation Not on file Last Filed Vital Signs Vital Sign Reading Time Taken Comments Blood Pressure 128/71 05/29/2017 11:50 PM EDT Pulse 70 05/29/2017 11:50 PM EDT Temperature 36.6 C (97.9 F) 05/29/2017 8:21 PM EDT Respiratory Rate 18 05/29/2017 11:50 PM EDT Oxygen Saturation 99% 05/29/2017 11:50 PM EDT Inhaled Oxygen Concentration - - Weight - - Height - - Body Mass Index - - Plan of Treatment Health Maintenance Due Date Last Done Comments HIV screening 1986 Hepatitis C screening 1991 Tetanus adult (Td q 10,TDAP once) 1993 Cervical cancer screening 1994 Breast cancer screening 2013 Lipid disorder screening 2013 Colon cancer screening, Colonoscopy 2018 Diabetes screening 05/29/2020 05/29/2017 Pneumococcal Vaccine (50+ ye ars) (1 of 1 - PCV) 2023 Shingles vaccine (Shingrix) (1 of 2 - Shingrix (RZV) 2 Dose Standard Series) 2023 Influenza vaccine 05/19/2025 Covid-19 vaccine series (1 - 2024- season) 2025 RSV Immunization (1 - 1-dose 75+ series) 02/22/2048 Meningococcal B Vaccine Aged Out No l onger eligible based on patient's age to complete this topic Meningococcal Vaccine Aged Out No ligia saurabh eligible based on patient's age to complete this topic Procedures Procedure Name Priority Date/Time Associated Diagnosis Comments BASIC METABOLIC PANEL STAT 05/29/2017 8:46 PM EDT from Last 3 Months or Most Recently Relevant to Health Maintenance Results * (ABNORMAL) Basic metabolic panel (05/29/2017 8:46 PM EDT) Sodium 139 135 - 145 mmol/L 05/29/2017 9:32 PM EDT [facility] Potassium 3.7 3.3 - 5.0 mmol/L 05/29/2017 9:32 PM EDT [facility] Chloride 99 96 - 106 mmol/L 05/29/2017 9:32 PM EDT [facility] CO2 23 22 - 30 mmol/L 05/29/2017 9:32 PM EDT [facility] Anion Gap 17(H) >7-<17 05/29/2017 9:32 PM EDT [facility] Glucose 101(H) 70 - 100 mg/dL 05/29/2017 9:32 PM EDT [facility] BUN 12 8 - 18 mg/dL 05/29/2017 9:32 PM EDT [facility] Creatinine 0.61 0.50 - 1.20 mg/dL 05/29/2017 9:32 PM EDT [facility] Calcium 9.2 8.8 - 10.2 mg/dL 05/29/2017 9:32 PM EDT [facility] BUN/Creatinine Ratio 19.7 10.0 - 20.0 05/29/2017 9:32 PM EDT [facility] Blood specimen (specimen) Venipuncture / Unknown 05/29/2017 8:46 PM EDT 05/29/2017 8:58 PM EDT us Paty Ernandez MD LAB BLOOD ORDERABLES Final Resu lt Performing Organization Address City/State/[facility] Co de Phone Number [facility] [address] [place] [id number], [facility] [phone] from Last 3 Months or Most Recently Relevant to Health Maintenance Insurance [id number] MEDICAID [id number] MEDICAID [id number] MEDICAID [id number] MEDICAID Care Teams 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
== END 2025-09-25 16:41 | disposition home or self-care (01) ==
LOC: HO.HMCH 16:00
PROVIDERS: PCP Internal Medicine; Visit Provider Internal Medicine
DX: Z00.00 Encounter for general adult medical examination without abnormal findings (principal); R25.2 Cramp and spasm; F33.1 Major depressive disorder, recurrent, moderate

== ENCOUNTER → 2025-09-25 15:59 | Outpatient (BNVA) | payer OTHER, SELFPAY | PROVIDERS: PCP Internal Medicine; Visit Provider Internal Medicine | DX: Z00.00 Encounter for general adult medical examination without abnormal findings (principal); R25.2 Cramp and spasm; F33.1 Major depressive disorder, recurrent, moderate; E53.8 Deficiency of other specified B group vitamins; E78.5 Hyperlipidemia, unspecified; E55.9 Vitamin D deficiency, unspecified | CPT/HCPCS: 96127; 99212; 99396 ==